=== PATIENT | female | born 1995 | race Caucasian/White ===

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

== ENCOUNTER 2017-08-30 01:11 | Emergency (ER) | payer OTHER ==
[2017-08-30] MEDS ORDERED: Ondansetron 4 MG/2 ML SDV IVPUSH ONE (01:27)
[2017-08-30] MEDS ORDERED: Ketorolac 30 MG/ML SDV IVPUSH ONE (01:27)
[2017-08-30] MEDS ORDERED: Sodium Chloride 0.9% 1,000 ML IV SCH (01:30)
[2017-08-30 02:12] LABS: CHLORIDE,CL 108 mmol/L (98-107); SODIUM,NA 138 mmol/L (136-145)
[2017-08-30 03:00] VITALS: BP 118/66
--- NOTE | 2017-08-30 03:04 | EDM.PDOC ---
ED HPI GENERAL MEDICAL PROBLEM - General Chief Complaint: Abdominal Pain Stated Complaint: STOMACH PAINS Time Seen by Provider: 08/30/17 02:59 - History of Present Illness INITIAL COMMENTS - FREE TEXT/NARRATIVE: HISTORY AND PHYSICAL: History of present illness: Patient's 22-year-old female presents with a concern of intermittent abdominal pain for greater than one month she has no associated vomiting diarrhea she denies fever chills this is nonlocalized been no trauma she denies vaginal discharge or irregular bleeding or any urinary symptoms Review of systems: As per history of present illness and below otherwise all systems reviewed and negative. Past medical history: As per history of present illness and as reviewed below otherwise noncontributory. Surgical history: As per history of present illness and as reviewed below otherwise noncontributory. Social history: No reported history of drug or alcohol abuse. Family history: As per history of present illness and as reviewed below otherwise noncontributory. Physical exam: HEENT: Atraumatic, normocephalic, pupils reactive, negative for conjunctival pallor or scleral icterus, mucous membranes moist, throat clear, neck supple, nontender, trachea midline. Lungs: Clear to auscultation, breath sounds equal bilaterally, chest nontender. Heart: S1S2, regular, negative for clicks, rubs, or JVD. Abdomen: Soft, nondistended, nontender. Negative for masses or hepatosplenomegaly. Negative for costovertebral tenderness. Pelvis: Stable nontender. Genitourinary: Deferred. Rectal: Deferred. Extremities: Atraumatic, negative for cords or calf pain. Neurovascular unremarkable. Neuro: Awake, alert, oriented. Cranial nerves II through XII unremarkable. Cerebellum unremarkable. Motor and sensory unremarkable throughout. Exam nonfocal. Diagnostics: CBC CMP UA hCG CT abdomen and pelvis Therapeutics: Saline 1 L bolus Impression: #1 chronic intermittent abdominal pain etiology to be determined Definitive disposition and diagnosis as appropriate pending reevaluation and review of above. Abdomen left lumbar Pain Score (Numeric/FACES): 1 - Related Data Allergies Allergy/AdvReac Type Severity Reaction Status Date / Time No Known Allergies Allergy Verified 08/30/17 01:21 Home Meds: Home Meds Control 08/30/17 [History] Past Medical History - Past Health History Medical/Surgical History: Denies Medical/Surgical History HEENT History: Reports: None Cardiovascular History: Reports: None Other Cardiovascular History: chest pains Respiratory History: Reports: None Gastrointestinal History: Reports: GERD Genitourinary History: Reports: None VET[employer]IN[employer]CTOR History: Reports: None Psychiatric History: Reports: None Hematologic History: Reports: None Dermatologic History: Reports: None - Infectious Disease History Infectious Disease History: Reports: None - Past Surgical History Other HEENT Surgeries/Procedures: dental surgery Cardiovascular Surgical History: Reports: None GI Surgical History: Reports: None Female Surgical History: Reports: None Social & Family History - Family History Family Medical History: Noncontributory HEENT: Reports: None Cardiac: Reports: None - Tobacco Use Smoking Status *Q: Never Smoker - Caffeine Use Caffeine Use: Reports: None - Recreational Drug Use Recreational Drug Use: No ED ROS GENERAL - Review of Systems Review Of Systems: ROS reveals no pertinent complaints other than HPI. ED EXAM, GENERAL - Physical Exam Exam: See Below (See dictation) Course - Vital Signs Last Recorded V/S: Last Vital Signs Temp 36.8 C 08/30/17 02:59 Pulse 92 08/30/17 02:59 Resp 18 08/30/17 02:59 BP 118/66 08/30/17 02:59 Pulse Ox 97 08/30/17 02:59 - Orders/Labs/Meds Orders: Active Orders 24 hr Category Date Time Status Abdomen Pelvis wo Cont [CT] Stat Exams 08/30/17 01:28 Taken HCG QUALITATIVE,URINE [URCHEM] Stat Lab 08/30/17 02:11 Ordered UA W/MICROSCOPIC [URIN] Stat Lab 08/30/17 02:11 Ordered Sodium Chloride 0.9% [Normal Saline] 1,000 ml Med 08/30/17 01:30 Active IV ASDIRECTED Medication Orders Sodium Chloride (Normal Saline) 1,000 mls @ 999 mls/hr IV ASDIRECTED MARIANA Last Admin: 08/30/17 01:41 Dose: 999 mls/hr Labs: Laboratory Tests 08/30/17 08/30/17 08/30/17 Range/Units 01:40 01:40 02:11 WBC 10.37 (4.0-11.0) K/uL RBC 4.40 (4.30-5.90) M/uL Hgb 13.8 (12.0-16.0) g/dL Hct 39.2 (36.0-46.0) % MCV 89.1 (80.0-98.0) fL MCH 31.4 (27.0-32.0) pg MCHC 35.2 (31.0-37.0) g/dL RDW Std Deviation 37.8 (28.0-62.0) fl RDW Coeff of Pema 12 (11.0-15.0) % Plt Count 284 (150-400) K/uL MPV 9.90 (7.40-12.00) fL Neut % (Auto) 69.2 (48.0-80.0) % Lymph % (Auto) 24.5 (16.0-40.0) % [place] % (Auto) 5.6 (0.0-15.0) % Eos % (Auto) 0.6 (0.0-7.0) % Baso % (Auto) 0.1 (0.0-1.5) % Neut # (Auto) 7.2 H (1.4-5.7) K/uL Lymph # (Auto) 2.5 H (0.6-2.4) K/uL [place] # (Auto) 0.6 (0.0-0.8) K/uL Eos # (Auto) 0.1 (0.0-0.7) K/uL Baso # (Auto) 0.0 (0.0-0.1) K/uL Sodium 138 (136-145) mmol/L Potassium 3.6 (3.5-5.1) mmol/L Chloride 108 H (98-107) mmol/L Carbon Dioxide 24.1 (21.0-32.0) mmol/L BUN 12 (7.0-18.0) mg/dL Creatinine 0.8 (0.6-1.0) mg/dL Est Cr Clr Drug Dosing 96.86 mL/min Estimated GFR (MDRD) > 60.0 ml/min Glucose 112 H (74-106) mg/dL Calcium 8.6 (8.5-10.1) mg/dL Total Bilirubin 0.5 (0.2-1.0) mg/dL AST 18 (15-37) IU/L ALT 17 (14-63) IU/L Alkaline Phosphatase 26 L (46-116) U/L Total Protein 6.6 (6.4-8.2) g/dL Albumin 3.2 L (3.4-5.0) g/dL Globulin 3.4 (2.0-3.5) g/dL Albumin/Globulin Ratio 0.9 L (1.3-2.8) Urine Color YELLOW Urine Appearance CLEAR Urine pH 6.5 (5.0-8.0) Ur Specific [place] <= 1.005 (1.001-1.035) Urine Protein NEGATIVE (NEGATIVE) mg/dL Urine Glucose (UA) NEGATIVE (NEGATIVE) mg/dL Urine Ketones NEGATIVE (NEGATIVE) mg/dL Urine Occult Blood NEGATIVE (NEGATIVE) Urine Nitrite NEGATIVE (NEGATIVE) Urine Bilirubin NEGATIVE (NEGATIVE) Urine Urobilinogen 0.2 (<2.0) EU/dL Ur Leukocyte Esterase NEGATIVE (NEGATIVE) Urine RBC 0-1 (0-2/HPF) Urine WBC 0-1 (0-5/HPF) Ur Epithelial Cells RARE (NONE-FEW) Urine Bacteria RARE (NEGATIVE) Urine HCG, Qual (NEGATIVE) 08/30/17 Range/Units 02:11 WBC (4.0-11.0) K/uL RBC (4.30-5.90) M/uL Hgb (12.0-16.0) g/dL Hct (36.0-46.0) % MCV (80.0-98.0) fL MCH (27.0-32.0) pg MCHC (31.0-37.0) g/dL RDW Std Deviation (28.0-62.0) fl RDW Coeff of Pema (11.0-15.0) % Plt Count (150-400) K/uL MPV (7.40-12.00) fL Neut % (Auto) (48.0-80.0) % Lymph % (Auto) (16.0-40.0) % [place] % (Auto) (0.0-15.0) % Eos % (Auto) (0.0-7.0) % Baso % (Auto) (0.0-1.5) % Neut # (Auto) (1.4-5.7) K/uL Lymph # (Auto) (0.6-2.4) K/uL [place] # (Auto) (0.0-0.8) K/uL Eos # (Auto) (0.0-0.7) K/uL Baso # (Auto) (0.0-0.1) K/uL Sodium (136-145) mmol/L Potassium (3.5-5.1) mmol/L Chloride (98-107) mmol/L Carbon Dioxide (21.0-32.0) mmol/L BUN (7.0-18.0) mg/dL Creatinine (0.6-1.0) mg/dL Est Cr Clr Drug Dosing mL/min Estimated GFR (MDRD) ml/min Glucose (74-106) mg/dL Calcium (8.5-10.1) mg/dL Total Bilirubin (0.2-1.0) mg/dL AST (15-37) IU/L ALT (14-63) IU/L Alkaline Phosphatase (46-116) U/L Total Protein (6.4-8.2) g/dL Albumin (3.4-5.0) g/dL Globulin (2.0-3.5) g/dL Albumin/Globulin Ratio (1.3-2.8) Urine Color Urine Appearance Urine pH (5.0-8.0) Ur Specific [place] (1.001-1.035) Urine Protein (NEGATIVE) mg/dL Urine Glucose (UA) (NEGATIVE) mg/dL Urine Ketones (NEGATIVE) mg/dL Urine Occult Blood (NEGATIVE) Urine Nitrite (NEGATIVE) Urine Bilirubin (NEGATIVE) Urine Urobilinogen (<2.0) EU/dL Ur Leukocyte Esterase (NEGATIVE) Urine RBC (0-2/HPF) Urine WBC (0-5/HPF) Ur Epithelial Cells (NONE-FEW) Urine Bacteria (NEGATIVE) Urine HCG, Qual NEGATIVE (NEGATIVE) Meds: Medications Generic Name Dose Route Start Last Admin Trade Name Freq PRN Reason Stop Dose Admin Sodium Chloride 1,000 mls @ 999 mls/hr 08/30/17 01:30 08/30/17 01:41 Normal Saline IV 999 mls/hr ASDIRECTED MARIANA Administration Discontinued Medications Generic Name Dose Route Start Last Admin Trade Name Freq PRN Reason Stop Dose Admin Ketorolac Tromethamine 30 mg 08/30/17 01:27 08/30/17 01:41 Toradol IVPUSH 08/30/17 01:28 30 mg ONETIME ONE Administration Ondansetron HCl 4 mg 08/30/17 01:27 08/30/17 01:41 Zofran IVPUSH 08/30/17 01:28 4 mg ONETIME ONE Administration Departure - Departure Time of Disposition: 03:03 Disposition: Home, Self-Care 01 Condition: Good Clinical Impression: Abdominal pain - Discharge Information Referrals: PCP,None [Primary Care Provider] - Additional Instructions: The following information is given to patients seen in the emergency department who are being discharged to home. This information is to outline your options for follow-up care. We provide all patients seen in our emergency department with a follow-up referral. The need for follow-up, as well as the timing and circumstances, are variable depending upon the specifics of your emergency department visit. If you don't have a primary care physician on staff, we will provide you with a referral. We always advise you to contact your personal physician following an emergency department visit to inform them of the circumstance of the visit and for follow-up with them and/or the need for any referrals to a consulting specialist. The emergency department will also refer you to a specialist when appropriate. This referral assures that you have the opportunity for followup care with a specialist. All of these measure are taken in an effort to provide you with optimal care, which includes your followup. Under all circumstances we always encourage you to contact your private physician who remains a resource for coordinating your care. When calling for followup care, please make the office aware that this follow-up is from your recent emergency room visit. If for any reason you are refused follow-up, please contact the [facility] emergency department at and asked to speak to the emergency department charge nurse. [facility] Specialty Care - General Surgery Professional Building [address] [place] [address], [address] [place] [address] Follow-up primary medical doctor call to schedule appointment with general surgery above return as needed as discussed - My Orders Last 24 Hours: My Active Orders 08/30/17 01:28 Abdomen Pelvis wo Cont [CT] Stat 08/30/17 01:30 Sodium Chloride 0.9% [Normal Saline] 1,000 ml IV ASDIRECTED 08/30/17 02:11 HCG QUALITATIVE,URINE [URCHEM] Stat UA W/MICROSCOPIC [URIN] Stat - Assessment/Plan Last 24 Hours: My Active Orders 08/30/17 01:28 Abdomen Pelvis wo Cont [CT] Stat 08/30/17 01:30 Sodium Chloride 0.9% [Normal Saline] 1,000 ml IV ASDIRECTED 08/30/17 02:11 HCG QUALITATIVE,URINE [URCHEM] Stat UA W/MICROSCOPIC [URIN] Stat
--- NOTE | 2017-08-30 16:25 | CT ---
EXAM DATE: 08/30/17 PATIENT'S AGE: 22 Patient: MICHELLE CHEN Facility: [place], [place] Site . Site : 1997 Study: CT Abdomen/Pelvis W/O [id number]/[id number] 2:43:04 AM Ordering Physician: Doctor Coronado Final Report: INDICATION: Constipation for 3 weeks TECHNIQUE: CT Abdomen and pelvis without i.v. contrast. Coronal and sagittal reformats were obtained. CONTRAST: None COMPARISON: None FINDINGS: Lower chest: Unremarkable. Liver: Unremarkable. Spleen: Unremarkable. Pancreas: Unremarkable. Gallbladder: Unremarkable. Kidney: Trace bilateral hydroureter and mild bilateral renal pelviectasis seen. Adrenal: Unremarkable. Bowel: [id number] amount of stool is present throughout the colon which may be due to chronic constipation. The appendix is normal in appearance and size. It is best seen on coronal image 29. Vascular: Unremarkable. Lymph: Unremarkable. Peritoneum: Unremarkable. No pneumoperitoneum is seen. No significant ascites is noted. Pelvis: Mild bladder distention is noted. Soft tissue: Unremarkable. Bone: Unremarkable for age. IMPRESSION: 1. Trace bilateral hydroureter and mild bilateral renal pelviectasis seen. This may be due to bladder distention but clinical correlation is recommended to exclude urinary tract infection, vesicoureteral reflux, or previous history of obstruction. Dictated by Star Grace MD @ 08/30/2017 2:48:34 AM Please note that all CT scans at this facility use dose modulation, iterative reconstruction, and/or weight-based dosing when appropriate to reduce radiation dose to as low as reasonably achievable. Dictated by: Star Grace MD @ 08/30/2017 02:48:40 (Electronic Signature) Report Signed by Proxy. [facility] C[facility]ERSamantha
== END 2017-08-30 03:10 | disposition home or self-care (01) ==
LOC: MW.ED 01:11
DX: R10.9 Unspecified abdominal pain (principal)
CPT/HCPCS: 36415; 74176; 80053; 81001; 81025; 85025; 96361; 96374; 96375; 99284; J1885; J2405; J7040; 99283

== ENCOUNTER 2017-09-15 11:45 | Emergency (ER) | payer OTHER ==
--- NOTE | 2017-09-15 12:27 | EDM.PDOC ---
ED HPI GENERAL MEDICAL PROBLEM - General Chief Complaint: Abdominal Pain Stated Complaint: ABD PAIN Time Seen by Provider: 09/15/17 12:16 - History of Present Illness INITIAL COMMENTS - FREE TEXT/NARRATIVE: HISTORY AND PHYSICAL: History of present illness: Patient 22-year-old female with history of chronic abdominal pain who was seen by myself in the past and had an extensive workup in the emergency department then including CT scan of her abdomen she was referred to general surgery and did not secure or follow-up she has seen OB gynecology since then suggest that it is possible she has endometriosis but at her age would be nothing to do at this point and refer to gastroenterology for which she is appointment next week she is here today for routine evaluation and requesting lab evaluation for her persistent symptoms. Review of systems: As per history of present illness and below otherwise all systems reviewed and negative. Past medical history: As per history of present illness and as reviewed below otherwise noncontributory. Surgical history: As per history of present illness and as reviewed below otherwise noncontributory. Social history: No reported history of drug or alcohol abuse. Family history: As per history of present illness and as reviewed below otherwise noncontributory. Physical exam: HEENT: Atraumatic, normocephalic, pupils reactive, negative for conjunctival pallor or scleral icterus, mucous membranes moist, throat clear, neck supple, nontender, trachea midline. Lungs: Clear to auscultation, breath sounds equal bilaterally, chest nontender. Heart: S1S2, regular, negative for clicks, rubs, or JVD. Abdomen: Soft, nondistended, no localized tendernessNegative for masses or hepatosplenomegaly. Negative for costovertebral tenderness. Pelvis: Stable nontender. Genitourinary: Deferred. Rectal: Deferred. Extremities: Atraumatic, negative for cords or calf pain. Neurovascular unremarkable. Neuro: Awake, alert, oriented. Cranial nerves II through XII unremarkable. Cerebellum unremarkable. Motor and sensory unremarkable throughout. Exam nonfocal. Diagnostics: CBC CMP UA UCG KUB Therapeutics: None Impression: #1 chronic intermittent abdominal pain etiology to be determined Definitive disposition and diagnosis as appropriate pending reevaluation and review of above. upper abdomen, epigastric Pain Score (Numeric/FACES): 7 - Related Data Allergies Allergy/AdvReac Type Severity Reaction Status Date / Time caffeine Allergy Other Verified 09/15/17 12:08 Home Meds: Home Meds Control 08/30/17 [History] Past Medical History - Past Health History Medical/Surgical History: Denies Medical/Surgical History HEENT History: Reports: None Cardiovascular History: Reports: None Other Cardiovascular History: chest pains Respiratory History: Reports: None Gastrointestinal History: Reports: GERD Genitourinary History: Reports: None REAMER HAND History: Reports: None Psychiatric History: Reports: None Hematologic History: Reports: None Dermatologic History: Reports: None - Infectious Disease History Infectious Disease History: Reports: None - Past Surgical History Other HEENT Surgeries/Procedures: dental surgery Cardiovascular Surgical History: Reports: None GI Surgical History: Reports: None Female Surgical History: Reports: None Social & Family History - Family History Family Medical History: Noncontributory HEENT: Reports: None Cardiac: Reports: None - Tobacco Use Smoking Status *Q: Never Smoker Second Hand Smoke Exposure: Yes - Caffeine Use Caffeine Use: Reports: None - Recreational Drug Use Recreational Drug Use: No ED ROS GENERAL - Review of Systems Review Of Systems: ROS reveals no pertinent complaints other than HPI. ED EXAM, GENERAL - Physical Exam Exam: See Below (See dictation) Course - Vital Signs Last Recorded V/S: Last Vital Signs Temp 37.4 C 09/15/17 12:03 Pulse 141 H 09/15/17 12:03 Resp 18 09/15/17 12:03 BP 161/78 H 09/15/17 12:03 Pulse Ox 20 L 09/15/17 12:03 - Orders/Labs/Meds Orders: Active Orders 24 hr Category Date Time Status DRUG SCREEN, URINE [URCHEM] Stat Lab 09/15/17 12:25 Ordered UA W/MICROSCOPIC [URIN] Stat Lab 09/15/17 12:25 Ordered Labs: Laboratory Tests 09/15/17 09/15/17 09/15/17 Range/Units 12:25 12:25 12:39 WBC 9.55 (4.0-11.0) K/uL RBC 4.71 (4.30-5.90) M/uL Hgb 14.9 (12.0-16.0) g/dL Hct 41.6 (36.0-46.0) % MCV 88.3 (80.0-98.0) fL MCH 31.6 (27.0-32.0) pg MCHC 35.8 (31.0-37.0) g/dL RDW Std Deviation 40.2 (28.0-62.0) fl RDW Coeff of Pema 13 (11.0-15.0) % Plt Count 329 (150-400) K/uL MPV 9.50 (7.40-12.00) fL Neut % (Auto) 82.5 H (48.0-80.0) % Lymph % (Auto) 12.5 L (16.0-40.0) % [place] % (Auto) 4.7 (0.0-15.0) % Eos % (Auto) 0.1 (0.0-7.0) % Baso % (Auto) 0.2 (0.0-1.5) % Neut # (Auto) 7.9 H (1.4-5.7) K/uL Lymph # (Auto) 1.2 (0.6-2.4) K/uL [place] # (Auto) 0.5 (0.0-0.8) K/uL Eos # (Auto) 0.0 (0.0-0.7) K/uL Baso # (Auto) 0.0 (0.0-0.1) K/uL Nucleated RBC % 0.0 /100WBC Nucleated RBCs # 0 K/uL Sodium (136-145) mmol/L Potassium (3.5-5.1) mmol/L Chloride (98-107) mmol/L Carbon Dioxide (21.0-32.0) mmol/L BUN (7.0-18.0) mg/dL Creatinine (0.6-1.0) mg/dL Est Cr Clr Drug Dosing mL/min Estimated GFR (MDRD) ml/min Glucose (74-106) mg/dL Calcium (8.5-10.1) mg/dL Total Bilirubin (0.2-1.0) mg/dL AST (15-37) IU/L ALT (14-63) IU/L Alkaline Phosphatase (46-116) U/L Total Protein (6.4-8.2) g/dL Albumin (3.4-5.0) g/dL Globulin (2.0-3.5) g/dL Albumin/Globulin Ratio (1.3-2.8) Lipase (73-393) U/L HCG, Qual (NEG) Urine Color YELLOW Urine Appearance CLEAR Urine pH 5.5 (5.0-8.0) Ur Specific [place] 1.015 (1.001-1.035) Urine Protein NEGATIVE (NEGATIVE) mg/dL Urine Glucose (UA) NEGATIVE (NEGATIVE) mg/dL Urine Ketones NEGATIVE (NEGATIVE) mg/dL Urine Occult Blood TRACE-INTACT (NEGATIVE) Urine Nitrite NEGATIVE (NEGATIVE) Urine Bilirubin NEGATIVE (NEGATIVE) Urine Urobilinogen 0.2 (<2.0) EU/dL Ur Leukocyte Esterase NEGATIVE (NEGATIVE) Urine RBC 0-1 (0-2/HPF) Urine WBC 0-1 (0-5/HPF) Ur Epithelial Cells OCCASIONAL (NONE-FEW) Urine Bacteria RARE (NEGATIVE) Urine Opiates Screen NEGATIVE (NEGATIVE) Ur Oxycodone Screen NEGATIVE (NEGATIVE) Urine Methadone Screen NEGATIVE (NEGATIVE) Ur Barbiturates Screen NEGATIVE (NEGATIVE) Ur Phencyclidine Scrn NEGATIVE (NEGATIVE) Ur Amphetamine Screen NEGATIVE (NEGATIVE) U Methamphetamines Scrn NEGATIVE (NEGATIVE) U Benzodiazepines Scrn NEGATIVE (NEGATIVE) U Cocaine Metab Screen NEGATIVE (NEGATIVE) U Marijuana (THC) Screen NEGATIVE (NEGATIVE) 09/15/17 09/15/17 Range/Units 12:39 12:39 WBC (4.0-11.0) K/uL RBC (4.30-5.90) M/uL Hgb (12.0-16.0) g/dL Hct (36.0-46.0) % MCV (80.0-98.0) fL MCH (27.0-32.0) pg MCHC (31.0-37.0) g/dL RDW Std Deviation (28.0-62.0) fl RDW Coeff of Pema (11.0-15.0) % Plt Count (150-400) K/uL MPV (7.40-12.00) fL Neut % (Auto) (48.0-80.0) % Lymph % (Auto) (16.0-40.0) % [place] % (Auto) (0.0-15.0) % Eos % (Auto) (0.0-7.0) % Baso % (Auto) (0.0-1.5) % Neut # (Auto) (1.4-5.7) K/uL Lymph # (Auto) (0.6-2.4) K/uL [place] # (Auto) (0.0-0.8) K/uL Eos # (Auto) (0.0-0.7) K/uL Baso # (Auto) (0.0-0.1) K/uL Nucleated RBC % /100WBC Nucleated RBCs # K/uL Sodium 139 (136-145) mmol/L Potassium 3.3 L (3.5-5.1) mmol/L Chloride 105 (98-107) mmol/L Carbon Dioxide 24.3 (21.0-32.0) mmol/L BUN 9 (7.0-18.0) mg/dL Creatinine 0.9 (0.6-1.0) mg/dL Est Cr Clr Drug Dosing 89.72 mL/min Estimated GFR (MDRD) > 60.0 ml/min Glucose 120 H (74-106) mg/dL Calcium 8.5 (8.5-10.1) mg/dL Total Bilirubin 0.9 (0.2-1.0) mg/dL AST 14 L (15-37) IU/L ALT 16 (14-63) IU/L Alkaline Phosphatase 30 L (46-116) U/L Total Protein 7.2 (6.4-8.2) g/dL Albumin 3.5 (3.4-5.0) g/dL Globulin 3.7 H (2.0-3.5) g/dL Albumin/Globulin Ratio 1.0 L (1.3-2.8) Lipase 162 (73-393) U/L HCG, Qual NEGATIVE (NEG) Urine Color Urine Appearance Urine pH (5.0-8.0) Ur Specific [place] (1.001-1.035) Urine Protein (NEGATIVE) mg/dL Urine Glucose (UA) (NEGATIVE) mg/dL Urine Ketones (NEGATIVE) mg/dL Urine Occult Blood (NEGATIVE) Urine Nitrite (NEGATIVE) Urine Bilirubin (NEGATIVE) Urine Urobilinogen (<2.0) EU/dL Ur Leukocyte Esterase (NEGATIVE) Urine RBC (0-2/HPF) Urine WBC (0-5/HPF) Ur Epithelial Cells (NONE-FEW) Urine Bacteria (NEGATIVE) Urine Opiates Screen (NEGATIVE) Ur Oxycodone Screen (NEGATIVE) Urine Methadone Screen (NEGATIVE) Ur Barbiturates Screen (NEGATIVE) Ur Phencyclidine Scrn (NEGATIVE) Ur Amphetamine Screen (NEGATIVE) U Methamphetamines Scrn (NEGATIVE) U Benzodiazepines Scrn (NEGATIVE) U Cocaine Metab Screen (NEGATIVE) U Marijuana (THC) Screen (NEGATIVE) Departure - Departure Time of Disposition: 12:26 Disposition: Home, Self-Care 01 Condition: Good Clinical Impression: Chronic abdominal pain - Discharge Information Referrals: PCP,None [Primary Care Provider] - Forms: ED Department Discharge Additional Instructions: The following information is given to patients seen in the emergency department who are being discharged to home. This information is to outline your options for follow-up care. We provide all patients seen in our emergency department with a follow-up referral. The need for follow-up, as well as the timing and circumstances, are variable depending upon the specifics of your emergency department visit. If you don't have a primary care physician on staff, we will provide you with a referral. We always advise you to contact your personal physician following an emergency department visit to inform them of the circumstance of the visit and for follow-up with them and/or the need for any referrals to a consulting specialist. The emergency department will also refer you to a specialist when appropriate. This referral assures that you have the opportunity for followup care with a specialist. All of these measure are taken in an effort to provide you with optimal care, which includes your followup. Under all circumstances we always encourage you to contact your private physician who remains a resource for coordinating your care. When calling for followup care, please make the office aware that this follow-up is from your recent emergency room visit. If for any reason you are refused follow-up, please contact the [facility] emergency department at and asked to speak to the emergency department charge nurse. [facility] Specialty Care - General Surgery Professional Building [address] [place] [address], [address] [place] [address] Keep scheduled appointment gastroenterology follow-up Gen. surgery above as discussed prior call to schedule appointment return as needed as discussed - My Orders Last 24 Hours: My Active Orders 09/15/17 12:25 DRUG SCREEN, URINE [URCHEM] Stat UA W/MICROSCOPIC [URIN] Stat - Assessment/Plan Last 24 Hours: My Active Orders 09/15/17 12:25 DRUG SCREEN, URINE [URCHEM] Stat UA W/MICROSCOPIC [URIN] Stat
[2017-09-15 13:37] LABS: CHLORIDE,CL 105 mmol/L (98-107); SODIUM,NA 139 mmol/L (136-145)
--- NOTE | 2017-09-15 14:18 | CR ---
Supine abdomen Clinical history: Abdominal pain Comparison: CT scan August 30, 2017. Findings: There is a nonspecific bowel gas pattern. There are no calculi identified in the expected d istribution of either kidney or ureter. No significant specific findings. Impression: Nonspecific abdominal findings
[2017-09-15 14:39] VITALS: BP 116/65
== END 2017-09-15 14:39 | disposition home or self-care (01) ==
LOC: MW.ED 11:45
DX: R10.9 Unspecified abdominal pain (principal); G89.29 Other chronic pain; Z91.018 Allergy to other foods; Z77.22 Contact with and (suspected) exposure to environmental tobacco smoke (acute) (chronic)
CPT/HCPCS: 36415; 74018; 74018-26; 80053; 80305; 81001; 83690; 84703; 85025; 99282; 99284

== ENCOUNTER 2019-07-28 20:14 | Emergency (ER) | payer OTHER ==
[2019-07-28] MEDS ORDERED: Sodium Chloride 0.9% 10 ML Syringe FLUSH PRN (20:44)
[2019-07-28] MEDS ORDERED: Sodium Chloride 0.9% 2.5 ML Syringe FLUSH PRN (20:44)
[2019-07-28] MEDS ORDERED: Sodium Chloride 0.9% 1,000 ML IV ONE (20:44)
--- NOTE | 2019-07-28 21:11 | EDM.PDOC ---
ED HPI GENERAL MEDICAL PROBLEM - General Chief Complaint: Abdominal Pain Stated Complaint: STOMACH AND CHEST PAINS Time Seen by Provider: 07/28/19 20:43 Source of Information: Reports: Patient History Limitations: Reports: No Limitations - History of Present Illness INITIAL COMMENTS - FREE TEXT/NARRATIVE: HISTORY AND PHYSICAL: History of present illness: Patient is a 24-year-old presents to the ED with multiple complaints. Patient states that 2 days ago she went to the chiropractor because she gets extremity tingling and weakness. She states he told her she had a hiatal hernia and pressed on her stomach to "put it back in place." She states ever since then she has had left upper abdominal pain. She also has a pressure in her chest that is worse when she lies down, feels like her heart is racing/pounding and feels like she can't take a deep breath. She reports having right upper abdominal pain as well but this has been going on for a while along with having bright yellow loose stools. She states she has a follow up with Izabela Hernández NP in [place] on Wednesday to discuss all of this. She states she came to the ED today because she was walking and felt really tired and needed to sit down. She states she sometimes feels like she might pass out but denies any syncopal episodes. Patient has history of cholecystectomy. Denies significant past medical history. States she smokes marijuana 2-3 times per week. Denies tobacco , alcohol or other drug use. Review of systems: As per history of present illness and below otherwise all systems reviewed and negative. Past medical history: As per history of present illness and as reviewed below otherwise noncontributory. Surgical history: As per history of present illness and as reviewed below otherwise noncontributory. Social history: No reported history of drug or alcohol abuse. Family history: As per history of present illness and as reviewed below otherwise noncontributory. Physical exam: General: Patient sitting comfortably in no acute distress and nontoxic appearing HEENT: Atraumatic, normocephalic, pupils reactive, negative for conjunctival pallor or scleral icterus, mucous membranes moist, throat clear, neck supple, nontender, trachea midline. No meningeal signs. Lungs: Clear to auscultation, breath sounds equal bilaterally, chest nontender. Heart: S1S2, regular, negative for clicks, rubs, or overt murmur. Abdomen: Soft, nondistended, nontender. Negative for masses or hepatosplenomegaly. Negative for costovertebral tenderness. No rigidity, rebound , guarding. Pelvis: Stable nontender. Genitourinary: Deferred. Rectal: Deferred. Extremities: Atraumatic, negative for cords or calf pain. Neurovascular unremarkable. Neuro: Awake, alert, oriented. Cranial nerves II through XII unremarkable. Cerebellum unremarkable. Motor and sensory unremarkable throughout. Exam nonfocal. Notes: Diagnostics: CBC, CMP, troponin, EKG, CXR, UA, urine hcg Therapeutics: 1L NS IV Prescriptions: none Impression: abdominal pain Plan: Follow up with primary care provider at your scheduled appointment on Wednesday Return to ED as needed as discussed Definitive disposition and diagnosis as appropriate pending reevaluation and review of above. Chest/Abdomen Pain Score (Numeric/FACES): 7 - Related Data Allergies Allergy/AdvReac Type Severity Reaction Status Date / Time caffeine Allergy heart races Verified 02/28/18 02:59 hydrocodone Allergy Tachycardia Verified 03/24/18 23:39 contrast Allergy Hives Uncoded 07/28/19 21:10 Home Meds: Home Meds . [No Known Home Meds] 07/28/19 [History] Past Medical History - Past Health History Medical/Surgical History: Denies Medical/Surgical History HEENT History: Reports: None Cardiovascular History: Reports: None Other Cardiovascular History: chest pains Respiratory History: Reports: None Gastrointestinal History: Reports: GERD, Irritable Bowel Syndrome Other Gastrointestinal History: rt upper quad pain Genitourinary History: Reports: None [employer] History: Reports: None Musculoskeletal History: Reports: None Neurological History: Reports: None Psychiatric History: Reports: None Endocrine/Metabolic History: Reports: None, Other (See Below) Hematologic History: Reports: None Immunologic History: Reports: None Oncologic (Cancer) History: Reports: None Dermatologic History: Reports: None - Infectious Disease History Infectious Disease History: Reports: None - Past Surgical History Respiratory Surgical History: Reports: None Endocrine Surgical History: Reports: None Neurological Surgical History: Reports: None Musculoskeletal Surgical History: Reports: None Oncologic Surgical History: Reports: None Dermatological Surgical History: Reports: None Social & Family History - Family History Family Medical History: Noncontributory HEENT: Reports: None Cardiac: Reports: None - Caffeine Use Caffeine Use: Reports: None ED ROS GENERAL - Review of Systems Review Of Systems: Comprehensive ROS is negative, except as noted in HPI. ED EXAM, GI/ABD - Physical Exam Exam: See Below (see dictation) Course - Vital Signs Last Recorded V/S: Last Vital Signs Temp 96.7 F L 07/28/19 20:42 Pulse 115 H 07/28/19 20:42 Resp 17 07/28/19 20:42 BP 88/69 L 07/28/19 20:42 Pulse Ox 100 07/28/19 20:42 - Orders/Labs/Meds Orders: Active Orders 24 hr Category Date Time Status Sodium Chloride 0.9% [Saline Flush] Med 07/28/19 20:44 Active 10 ml FLUSH ASDIRECTED PRN Sodium Chloride 0.9% [Saline Flush] Med 07/28/19 20:44 Active 2.5 ml FLUSH ASDIRECTED PRN Saline Lock Insert [OM.PC] Stat Oth 07/28/19 20:43 Ordered Medication Orders Sodium Chloride (Saline Flush) 10 ml FLUSH ASDIRECTED PRN PRN Reason: Keep Vein Open Sodium Chloride (Saline Flush) 2.5 ml FLUSH ASDIRECTED PRN PRN Reason: Keep Vein Open Labs: Laboratory Tests 07/28/19 07/28/19 07/28/19 Range/Units 21:00 21:00 21:00 WBC 9.52 (4.0-11.0) K/uL RBC 4.94 (4.30-5.90) M/uL Hgb 15.4 (12.0-16.0) g/dL Hct 43.7 (36.0-46.0) % MCV 88.5 (80.0-98.0) fL MCH 31.2 (27.0-32.0) pg MCHC 35.2 (31.0-37.0) g/dL RDW Std Deviation 40.8 (28.0-62.0) fl RDW Coeff of Pema 13 (11.0-15.0) % Plt Count 312 (150-400) K/uL MPV 9.40 (7.40-12.00) fL Neut % (Auto) 74.3 (48.0-80.0) % Lymph % (Auto) 19.6 (16.0-40.0) % [place] % (Auto) 5.7 (0.0-15.0) % Eos % (Auto) 0.2 (0.0-7.0) % Baso % (Auto) 0.2 (0.0-1.5) % Neut # (Auto) 7.1 H (1.4-5.7) K/uL Lymph # (Auto) 1.9 (0.6-2.4) K/uL [place] # (Auto) 0.5 (0.0-0.8) K/uL Eos # (Auto) 0.0 (0.0-0.7) K/uL Baso # (Auto) 0.0 (0.0-0.1) K/uL Nucleated RBC % 0.0 /100WBC Nucleated RBCs # 0 K/uL Sodium 141 (136-145) mmol/L Potassium 3.7 (3.5-5.1) mmol/L Chloride 104 (98-107) mmol/L Carbon Dioxide 27.9 (21.0-32.0) mmol/L BUN 9 (7.0-18.0) mg/dL Creatinine 0.7 (0.6-1.0) mg/dL Est Cr Clr Drug Dosing TNP Estimated GFR (MDRD) > 60.0 ml/min Glucose 109 H (74-106) mg/dL Calcium 8.9 (8.5-10.1) mg/dL Total Bilirubin 1.1 H (0.2-1.0) mg/dL AST 18 (15-37) IU/L ALT 27 (14-63) IU/L Alkaline Phosphatase 52 (46-116) U/L Troponin I < 0.050 (0.000-0.056) ng/mL Total Protein 7.8 (6.4-8.2) g/dL Albumin 4.1 (3.4-5.0) g/dL Globulin 3.7 (2.6-4.0) g/dL Albumin/Globulin Ratio 1.1 (0.9-1.6) Lipase 102 (73-393) U/L Urine Color YELLOW Urine Appearance CLEAR Urine pH 6.5 (5.0-8.0) Ur Specific [place] 1.010 (1.001-1.035) Urine Protein NEGATIVE (NEGATIVE) mg/dL Urine Glucose (UA) NEGATIVE (NEGATIVE) mg/dL Urine Ketones NEGATIVE (NEGATIVE) mg/dL Urine Occult Blood NEGATIVE (NEGATIVE) Urine Nitrite NEGATIVE (NEGATIVE) Urine Bilirubin NEGATIVE (NEGATIVE) Urine Urobilinogen 0.2 (<2.0) EU/dL Ur Leukocyte Esterase NEGATIVE (NEGATIVE) Urine HCG, Qual (NEGATIVE) 07/28/19 Range/Units 21:00 WBC (4.0-11.0) K/uL RBC (4.30-5.90) M/uL Hgb (12.0-16.0) g/dL Hct (36.0-46.0) % MCV (80.0-98.0) fL MCH (27.0-32.0) pg MCHC (31.0-37.0) g/dL RDW Std Deviation (28.0-62.0) fl RDW Coeff of Pema (11.0-15.0) % Plt Count (150-400) K/uL MPV (7.40-12.00) fL Neut % (Auto) (48.0-80.0) % Lymph % (Auto) (16.0-40.0) % [place] % (Auto) (0.0-15.0) % Eos % (Auto) (0.0-7.0) % Baso % (Auto) (0.0-1.5) % Neut # (Auto) (1.4-5.7) K/uL Lymph # (Auto) (0.6-2.4) K/uL [place] # (Auto) (0.0-0.8) K/uL Eos # (Auto) (0.0-0.7) K/uL Baso # (Auto) (0.0-0.1) K/uL Nucleated RBC % /100WBC Nucleated RBCs # K/uL Sodium (136-145) mmol/L Potassium (3.5-5.1) mmol/L Chloride (98-107) mmol/L Carbon Dioxide (21.0-32.0) mmol/L BUN (7.0-18.0) mg/dL Creatinine (0.6-1.0) mg/dL Est Cr Clr Drug Dosing Estimated GFR (MDRD) ml/min Glucose (74-106) mg/dL Calcium (8.5-10.1) mg/dL Total Bilirubin (0.2-1.0) mg/dL AST (15-37) IU/L ALT (14-63) IU/L Alkaline Phosphatase (46-116) U/L Troponin I (0.000-0.056) ng/mL Total Protein (6.4-8.2) g/dL Albumin (3.4-5.0) g/dL Globulin (2.6-4.0) g/dL Albumin/Globulin Ratio (0.9-1.6) Lipase (73-393) U/L Urine Color Urine Appearance Urine pH (5.0-8.0) Ur Specific [place] (1.001-1.035) Urine Protein (NEGATIVE) mg/dL Urine Glucose (UA) (NEGATIVE) mg/dL Urine Ketones (NEGATIVE) mg/dL Urine Occult Blood (NEGATIVE) Urine Nitrite (NEGATIVE) Urine Bilirubin (NEGATIVE) Urine Urobilinogen (<2.0) EU/dL Ur Leukocyte Esterase (NEGATIVE) Urine HCG, Qual NEGATIVE (NEGATIVE) Meds: Medications Generic Name Dose Route Start Last Admin Trade Name Freq PRN Reason Stop Dose Admin Sodium Chloride 10 ml 07/28/19 20:44 Saline Flush FLUSH ASDIRECTED PRN Keep Vein Open Sodium Chloride 2.5 ml 07/28/19 20:44 Saline Flush FLUSH ASDIRECTED PRN Keep Vein Open Discontinued Medications Generic Name Dose Route Start Last Admin Trade Name Freq PRN Reason Stop Dose Admin Sodium Chloride 1,000 mls @ 999 mls/hr 07/28/19 20:44 07/28/19 21:03 Normal Saline IV 07/28/19 21:44 999 mls/hr STAT ONE Administration Departure - Departure Time of Disposition: 21:52 Disposition: Home, Self-Care 01 Condition: Good Clinical Impression: Abdominal pain - Discharge Information Forms: ED Department Discharge Additional Instructions: The following information is given to patients seen in the emergency department who are being discharged to home. This information is to outline your options for follow-up care. We provide all patients seen in our emergency department with a follow-up referral. The need for follow-up, as well as the timing and circumstances, are variable depending upon the specifics of your emergency department visit. If you don't have a primary care physician on staff, we will provide you with a referral. We always advise you to contact your personal physician following an emergency department visit to inform them of the circumstance of the visit and for follow-up with them and/or the need for any referrals to a consulting specialist. The emergency department will also refer you to a specialist when appropriate. This referral assures that you have the opportunity for follow-up care with a specialist. All of these measure are taken in an effort to provide you with optimal care, which includes your follow-up. Under all circumstances we always encourage you to contact your private physician who remains a resource for coordinating your care. When calling for follow-up care, please make the office aware that this follow-up is from your recent emergency room visit. If for any reason you are refused follow-up, please contact the [facility] Emergency Department at and asked to speak to the emergency department charge nurse. [facility] [address] [place] [address] [place] [address] Follow up with primary care provider at your scheduled appointment on Wednesday Return to ED as needed as discussed Sepsis Event Note - Focused Exam Vital Signs: Vital Signs Temp Pulse Resp BP Pulse Ox 07/28/19 20:42 96.7 F L 115 H 17 88/69 L 100 Date Exam was Performed: 07/28/19 Time Exam was Performed: 21:52 - My Orders Last 24 Hours: My Active Orders 07/28/19 20:43 Saline Lock Insert [OM.PC] Stat 07/28/19 20:44 Sodium Chloride 0.9% [Saline Flush] 10 ml FLUSH ASDIRECTED PRN Sodium Chloride 0.9% [Saline Flush] 2.5 ml FLUSH ASDIRECTED PRN - Assessment/Plan Last 24 Hours: My Active Orders 07/28/19 20:43 Saline Lock Insert [OM.PC] Stat 07/28/19 20:44 Sodium Chloride 0.9% [Saline Flush] 10 ml FLUSH ASDIRECTED PRN Sodium Chloride 0.9% [Saline Flush] 2.5 ml FLUSH ASDIRECTED PRN
[2019-07-28 21:34] LABS: BLOOD UREA NITROGEN,BUN 9 mg/dL (7.0-18.0); CARBON DIOXIDE,CO2 27.9 mmol/L (21.0-32.0); CHLORIDE,CL 104 mmol/L (98-107); GLUCOSE RANDOM 109 mg/dL (74-106); LIPASE 102 U/L (73-393); POTASSIUM,K 3.7 mmol/L (3.5-5.1); SODIUM,NA 141 mmol/L (136-145)
--- NOTE | 2019-07-28 21:45 | CR ---
Chest: Portable view of the chest was obtained. Comparison: No prior chest imaging is available. Heart size and mediastinum are normal. Lungs are clear. Bony structures appear within normal limits for the patient's age. Impression: 1. Nothing acute is appreciated on portable chest x-ray. Diagnostic code #1 Study was dictated in MDT
[2019-07-28 21:58] VITALS: BP 113/72; PULSE 92
== END 2019-07-28 22:08 | disposition home or self-care (01) ==
LOC: MW.ED 20:14
DX: R10.12 Left upper quadrant pain (principal); R10.11 Right upper quadrant pain; Z88.5 Allergy status to narcotic agent; Z91.041 Radiographic dye allergy status
CPT/HCPCS: 36415; 71045; 80053; 81003; 81025; 83690; 84484; 85025; 93005; 99285; J7030; 99284

== ENCOUNTER 2019-10-28 16:41 | Emergency (ER) | payer OTHER ==
[2019-10-28] MEDS ORDERED: Ondansetron 4 MG/2 ML SDV ONE (17:01)
[2019-10-28] MEDS ORDERED: Lactated Ringers 1,000 ML IV ONE (17:05)
[2019-10-28] MEDS ORDERED: Ondansetron 4 MG/2 ML SDV IVPUSH ONE (17:05)
[2019-10-28 17:29] LABS: ACETAMINOPHEN <2.0 ug/mL
--- NOTE | 2019-10-28 17:31 | EDM.PDOC ---
<Jaswant Galindo - Last Filed: 10/29/19 04:33> ED HPI GENERAL MEDICAL PROBLEM - General Chief Complaint: Chest Pain Stated Complaint: CHEST PAIN,POSSIBLE LOW BLOOD PRESSURE Time Seen by Provider: 10/28/19 16:58 - Related Data Allergies Allergy/AdvReac Type Severity Reaction Status Date / Time caffeine Allergy heart races Verified 10/28/19 16:56 hydrocodone Allergy Tachycardia Verified 10/28/19 16:56 contrast Allergy Hives Uncoded 10/28/19 16:56 Home Meds: Home Meds ALPRAZolam [Alprazolam] 0.25 mg PO ASDIRECTED 10/28/19 [History] Esomeprazole Magnesium [Nexium] 40 mg PO DAILY 10/28/19 [History] Course - Vital Signs Text/Narrative:: The patient was feeling bad when I first interviewed her and I left her to rest while I saw several other patients and she got her CT scan - The patient rested in the department while I saw other patients and she got her CT scan. When I anticipated her alcohol level would be close to normal I interviewed her again. She was alert and her speech was coherent and she appeared completely sober. She states she drank a little and took some Xanax because she was depressed. Then she decided to go ahead and drink and take enough medicine to kill her self. She still feels like she might do that in the future because she started at the end of her rope and she is depressed. She has a prior attempt by wrist cutting over which she has had a tattoo placed to hide it. Her left wrist in fact has a tattoo that would hide the area where most slashes would cut the wrist. The patient admits that she needs psychiatric help and the only reason she has not gotten it is because she does not think she has enough money to afford it. She lives alone. She has moved here only recently. she appeared completely competent to understand the consequences of what she was telling me and I let her know she would go to another community to be evaluated by a psychiatrist brandon. She admitted this was necessary. I told the above story to Dr. Weiss at [facility] and he agreed she needed to come tonight for evaluation. They had a bed available. Accepted by Dr. Weiss at [facility] After the patient found out there would be delay in getting her to a facility for her psychiatric evaluation ( lack of availability of EMS for transport), she told me she would not hurt herself and she is sorry she told me the above. She said a friend, "Latasha" would pick her up, stay with her and make sure she got outpatient counseling. I spoke with Latasha and he said she needs help because of the stress of a recent breakup and move to get away from an ex boyfriend. He thinks she needs help to get through it. He did not know the extent of her depression and I didn't give him any details about what she had told me. I spoke again with Dr. Weiss because she is claiming that she felt she wasn't sober when she told me she had tried to kill herself and didn't deny that she might try again. He said he would be happy to evaluate her but had to do this when she arrived at [place] in [place], where she has a bed. I believe she was fully aware of what she was telling me earlier, as she admitted she did not remember who brought her here or what they're relationship to her was, but she remembered the circumstances that preceded her decreased level of consciousness and taking the pills and drinking. She insisted on leaving before being evaluated by psychiatry, so we had law enforcemment come and explain the process. I am not the appropriate person to decide whether she was saying she was suicidal to try to get some response or has changed her story to try to get away from the consequences of her original story. I think the better thing for her is to have the opportunity to have psychiatry evaluation and intervention. When we spoke earlier she admitted she needed to go, and I wrote the involuntary hold for just this reason that I was afraid she did indeed need this care but ight change her mind. Departure - Departure Disposition: DC/Tfer to Psych Hosp/[facility] Condition: Good Clinical Impression: Depression, Intentional benzodiazepine overdose Referrals: PCP,None [Primary Care Provider] - Forms: ED Department Discharge <Bekah Bermudez - Last Filed: 10/29/19 08:39> ED HPI GENERAL MEDICAL PROBLEM - History of Present Illness INITIAL COMMENTS - FREE TEXT/NARRATIVE: History of present illness: 24-year-old female presenting with chest pain/upper abdominal pain going since this morning. Apparently she has a history of anxiety, she was extremely anxious and therefore she took 6 of her 0.25 mg Xanax tabs this morning and then another 2 of them this afternoon, however she has had ongoing pain. Her significant other at the bedside reports that she has been very difficult to get up and walk around due to the heavy dose of medications she took. She did later admit to having consumed an entire bottle of vodka prior to the onset of her symptoms. Review of systems: As per history of present illness and below otherwise all systems reviewed and negative. Past medical history: As per history of present illness and as reviewed below otherwise noncontributory. Surgical history: As per history of present illness and as reviewed below otherwise noncontributory. Social history: No reported history of drug or alcohol abuse. Family history: As per history of present illness and as reviewed below otherwise noncontributory. Physical exam: GEN: no acute distress, well appearing HEENT: Atraumatic, normocephalic, mucous membranes moist, Neck: supple, nontender, trachea midline. Lungs: No respiratory distress. Heart: Tachycardic Abdomen: Soft, nondistended, nontender. Back: nontender Extremities: Atraumatic. Neurovascularly intact. Neuro: Maintains eyes closed, however answers questions appropriately, and is oriented. She does occasionally open eyes during exam, and is able to converse relatively well. Neuro Exam nonfocal. Psych: Appears anxious. Skin: warm, dry, no lesions Diagnostics: Labs, EKG Therapeutics: IV fluids MDM: Impression: [] Plan: [] Definitive disposition and diagnosis as appropriate pending reevaluation and review of above. Upper Abdomen Pain Score (Numeric/FACES): 10 Past Medical History - Past Health History Medical/Surgical History: Denies Medical/Surgical History HEENT History: Reports: None Cardiovascular History: Reports: None Other Cardiovascular History: chest pains Respiratory History: Reports: None Gastrointestinal History: Reports: GERD, Irritable Bowel Syndrome Other Gastrointestinal History: rt upper quad pain Genitourinary History: Reports: None FACTORY WORKER History: Reports: None Musculoskeletal History: Reports: None Neurological History: Reports: None Psychiatric History: Reports: Anxiety, Suicidal Ideation Endocrine/Metabolic History: Reports: None Hematologic History: Reports: None Immunologic History: Reports: None Oncologic (Cancer) History: Reports: None Dermatologic History: Reports: None - Infectious Disease History Infectious Disease History: Reports: None - Past Surgical History Head Surgeries/Procedures: Reports: None Respiratory Surgical History: Reports: None GI Surgical History: Reports: Appendectomy, Colonoscopy, EGD Endocrine Surgical History: Reports: None Neurological Surgical History: Reports: None Musculoskeletal Surgical History: Reports: None Oncologic Surgical History: Reports: None Dermatological Surgical History: Reports: None Social & Family History - Family History Family Medical History: Noncontributory HEENT: Reports: None Cardiac: Reports: None - Tobacco Use Smoking Status *Q: Never Smoker - Caffeine Use Caffeine Use: Reports: None - Recreational Drug Use Recreational Drug Use: Yes Drug Use in Last 12 Months: Yes Recreational Drug Type: Reports: Marijuana/Hashish Recreational Drug Use Frequency: Weekly ED ROS GENERAL - Review of Systems Review Of Systems: See Below (See HPI) ED EXAM, GENERAL - Physical Exam Exam: See Below (See HPI) Course - Vital Signs Text/Narrative:: Initially presenting with chest pain, abdominal pain and tachycardia. EKG nonischemic. Patient reported accidental overdose of Xanax as patient did not understand the recommended dosing on the prescription bottle. Had also been drinking. Alcohol level was elevated. However even after IV fluids, resting, and clinical sobriety, the patient was still tachycardic. As she had been having chest pain I did add on a d-dimer to assess for PE/DVT, although the patient is otherwise low risk. She does not take any hormonal medications nor smoke. The d-dimer did come back elevated and therefore CT angio chest was or dered. Patient was signed out to Dr. Galindo at the change of shift pending CT results. The CT scan apparently was negative, however on reassessment, and while clinically sober the patient reported to Dr. Galindo having intentionally overdosed on alcohol and Xanax in an attempt to kill herself. Therefore she was placed on an involuntary psychiatric/suicide hold and was accepted to a psychiatric facility. I received her back in signout at change of shift at 7 AM on October 28 pending ambulance transfer to [place]. At 8:30 AM, the ambulance arrived to transport the patient. Last Recorded V/S: Last Vital Signs Temp 97.7 F 10/28/19 16:53 Pulse 99 10/29/19 04:30 Resp 18 10/29/19 04:30 BP 127/81 10/29/19 04:30 Pulse Ox 100 07/19/20 04:30 - Orders/Labs/Meds Orders: Active Orders 24 hr Category Date Time Status EKG Documentation Completion [RC] STAT Care 10/28/19 16:59 Active Sodium Chloride 0.9% [Saline Flush] Med 10/28/19 18:36 Active 10 ml FLUSH ASDIRECTED PRN Sodium Chloride 0.9% [Saline Flush] Med 10/28/19 18:36 Active 2.5 ml FLUSH ASDIRECTED PRN Saline Lock Insert [OM.PC] Stat Oth 10/28/19 18:36 Ordered Medication Orders Sodium Chloride (Saline Flush) 10 ml FLUSH ASDIRECTED PRN PRN Reason: Keep Vein Open Sodium Chloride (Saline Flush) 2.5 ml FLUSH ASDIRECTED PRN PRN Reason: Keep Vein Open Labs: Laboratory Tests 10/28/19 10/28/19 10/28/19 Range/Units 17:00 17:00 17:00 WBC 17.62 H (4.0-11.0) K/uL RBC 4.63 (4.30-5.90) M/uL Hgb 14.8 (12.0-16.0) g/dL Hct 42.3 (36.0-46.0) % MCV 91.4 (80.0-98.0) fL MCH 32.0 (27.0-32.0) pg MCHC 35.0 (31.0-37.0) g/dL RDW Std Deviation 48.0 (28.0-62.0) fl RDW Coeff of Pema 14 (11.0-15.0) % Plt Count 286 (150-400) K/uL MPV 9.80 (7.40-12.00) fL Neut % (Auto) 82.9 H (48.0-80.0) % Lymph % (Auto) 11.9 L (16.0-40.0) % [place] % (Auto) 4.9 (0.0-15.0) % Eos % (Auto) 0.2 (0.0-7.0) % Baso % (Auto) 0.1 (0.0-1.5) % Neut # (Auto) 14.6 H (1.4-5.7) K/uL Lymph # (Auto) 2.1 (0.6-2.4) K/uL [place] # (Auto) 0.9 H (0.0-0.8) K/uL Eos # (Auto) 0.0 (0.0-0.7) K/uL Baso # (Auto) 0.0 (0.0-0.1) K/uL Nucleated RBC % 0.0 /100WBC Nucleated RBCs # 0 K/uL D-Dimer, Quantitative 1.47 H (0.0-0.50) mg/L FEU Sodium 142 (136-145) mmol/L Potassium 3.3 L (3.5-5.1) mmol/L Chloride 105 (98-107) mmol/L Carbon Dioxide 23.5 (21.0-32.0) mmol/L BUN 11 (7.0-18.0) mg/dL Creatinine 0.7 (0.6-1.0) mg/dL Est Cr Clr Drug Dosing 113.43 mL/min Estimated GFR (MDRD) > 60.0 ml/min Glucose 109 H (74-106) mg/dL Calcium 8.4 L (8.5-10.1) mg/dL Magnesium 2.3 (1.8-2.4) mg/dL Total Bilirubin 0.7 (0.2-1.0) mg/dL AST 51 H (15-37) IU/L ALT 35 (14-63) IU/L Alkaline Phosphatase 48 (46-116) U/L Troponin I (0.000-0.056) ng/mL Total Protein 7.1 (6.4-8.2) g/dL Albumin 3.7 (3.4-5.0) g/dL Globulin 3.4 (2.6-4.0) g/dL Albumin/Globulin Ratio 1.1 (0.9-1.6) TSH 3rd Generation 0.27 L (0.36-3.74) uIU/mL Urine Color Urine Appearance Urine pH (5.0-8.0) Ur Specific [place] (1.001-1.035) Urine Protein (NEGATIVE) mg/dL Urine Glucose (UA) (NEGATIVE) mg/dL Urine Ketones (NEGATIVE) mg/dL Urine Occult Blood (NEGATIVE) Urine Nitrite (NEGATIVE) Urine Bilirubin (NEGATIVE) Urine Urobilinogen (<2.0) EU/dL Ur Leukocyte Esterase (NEGATIVE) Urine RBC (0-2/HPF) Urine WBC (0-5/HPF) Ur Epithelial Cells (NONE-FEW) Urine Bacteria (NEGATIVE) Urine HCG, Qual (NEGATIVE) Salicylates 3.9 (0-20) mg/dL Urine Opiates Screen (NEGATIVE) Ur Oxycodone Screen (NEGATIVE) Urine Methadone Screen (NEGATIVE) Acetaminophen <2.0 ug/mL Ur Barbiturates Screen (NEGATIVE) Ur Phencyclidine Scrn (NEGATIVE) Ur Amphetamine Screen (NEGATIVE) U Methamphetamines Scrn (NEGATIVE) U Benzodiazepines Scrn (NEGATIVE) U Cocaine Metab Screen (NEGATIVE) U Marijuana (THC) Screen (NEGATIVE) Ethyl Alcohol 214 mg/dL COVID-19 (RAFFY) (NEGATIVE) 10/28/19 10/28/19 10/28/19 Range/Units 17:00 19:45 19:45 WBC (4.0-11.0) K/uL RBC (4.30-5.90) M/uL Hgb (12.0-16.0) g/dL Hct (36.0-46.0) % MCV (80.0-98.0) fL MCH (27.0-32.0) pg MCHC (31.0-37.0) g/dL RDW Std Deviation (28.0-62.0) fl RDW Coeff of Pema (11.0-15.0) % Plt Count (150-400) K/uL MPV (7.40-12.00) fL Neut % (Auto) (48.0-80.0) % Lymph % (Auto) (16.0-40.0) % [place] % (Auto) (0.0-15.0) % Eos % (Auto) (0.0-7.0) % Baso % (Auto) (0.0-1.5) % Neut # (Auto) (1.4-5.7) K/uL Lymph # (Auto) (0.6-2.4) K/uL [place] # (Auto) (0.0-0.8) K/uL Eos # (Auto) (0.0-0.7) K/uL Baso # (Auto) (0.0-0.1) K/uL Nucleated RBC % /100WBC Nucleated RBCs # K/uL D-Dimer, Quantitative (0.0-0.50) mg/L FEU Sodium (136-145) mmol/L Potassium (3.5-5.1) mmol/L Chloride (98-107) mmol/L Carbon Dioxide (21.0-32.0) mmol/L BUN (7.0-18.0) mg/dL Creatinine (0.6-1.0) mg/dL Est Cr Clr Drug Dosing mL/min Estimated GFR (MDRD) ml/min Glucose (74-106) mg/dL Calcium (8.5-10.1) mg/dL Magnesium (1.8-2.4) mg/dL Total Bilirubin (0.2-1.0) mg/dL AST (15-37) IU/L ALT (14-63) IU/L Alkaline Phosphatase (46-116) U/L Troponin I < 0.050 (0.000-0.056) ng/mL Total Protein (6.4-8.2) g/dL Albumin (3.4-5.0) g/dL Globulin (2.6-4.0) g/dL Albumin/Globulin Ratio (0.9-1.6) TSH 3rd Generation (0.36-3.74) uIU/mL Urine Color YELLOW Urine Appearance SLT CLOUDY Urine pH 7.5 (5.0-8.0) Ur Specific [place] 1.015 (1.001-1.035) Urine Protein NEGATIVE (NEGATIVE) mg/dL Urine Glucose (UA) NEGATIVE (NEGATIVE) mg/dL Urine Ketones NEGATIVE (NEGATIVE) mg/dL Urine Occult Blood LARGE H (NEGATIVE) Urine Nitrite NEGATIVE (NEGATIVE) Urine Bilirubin NEGATIVE (NEGATIVE) Urine Urobilinogen 0.2 (<2.0) EU/dL Ur Leukocyte Esterase NEGATIVE (NEGATIVE) Urine RBC 5-10 (0-2/HPF) Urine WBC 0-3 (0-5/HPF) Ur Epithelial Cells RARE (NONE-FEW) Urine Bacteria RARE (NEGATIVE) Urine HCG, Qual NEGATIVE (NEGATIVE) Salicylates (0-20) mg/dL Urine Opiates Screen (NEGATIVE) Ur Oxycodone Screen (NEGATIVE) Urine Methadone Screen (NEGATIVE) Acetaminophen ug/mL Ur Barbiturates Screen (NEGATIVE) Ur Phencyclidine Scrn (NEGATIVE) Ur Amphetamine Screen (NEGATIVE) U Methamphetamines Scrn (NEGATIVE) U Benzodiazepines Scrn (NEGATIVE) U Cocaine Metab Screen (NEGATIVE) U Marijuana (THC) Screen (NEGATIVE) Ethyl Alcohol mg/dL COVID-19 (RAFFY) (NEGATIVE) 10/28/19 10/28/19 Range/Units 19:45 22:30 WBC (4.0-11.0) K/uL RBC (4.30-5.90) M/uL Hgb (12.0-16.0) g/dL Hct (36.0-46.0) % MCV (80.0-98.0) fL MCH (27.0-32.0) pg MCHC (31.0-37.0) g/dL RDW Std Deviation (28.0-62.0) fl RDW Coeff of Pema (11.0-15.0) % Plt Count (150-400) K/uL MPV (7.40-12.00) fL Neut % (Auto) (48.0-80.0) % Lymph % (Auto) (16.0-40.0) % [place] % (Auto) (0.0-15.0) % Eos % (Auto) (0.0-7.0) % Baso % (Auto) (0.0-1.5) % Neut # (Auto) (1.4-5.7) K/uL Lymph # (Auto) (0.6-2.4) K/uL [place] # (Auto) (0.0-0.8) K/uL Eos # (Auto) (0.0-0.7) K/uL Baso # (Auto) (0.0-0.1) K/uL Nucleated RBC % /100WBC Nucleated RBCs # K/uL D-Dimer, Quantitative (0.0-0.50) mg/L FEU Sodium (136-145) mmol/L Potassium (3.5-5.1) mmol/L Chloride (98-107) mmol/L Carbon Dioxide (21.0-32.0) mmol/L BUN (7.0-18.0) mg/dL Creatinine (0.6-1.0) mg/dL Est Cr Clr Drug Dosing mL/min Estimated GFR (MDRD) ml/min Glucose (74-106) mg/dL Calcium (8.5-10.1) mg/dL Magnesium (1.8-2.4) mg/dL Total Bilirubin (0.2-1.0) mg/dL AST (15-37) IU/L ALT (14-63) IU/L Alkaline Phosphatase (46-116) U/L Troponin I (0.000-0.056) ng/mL Total Protein (6.4-8.2) g/dL Albumin (3.4-5.0) g/dL Globulin (2.6-4.0) g/dL Albumin/Globulin Ratio (0.9-1.6) TSH 3rd Generation (0.36-3.74) uIU/mL Urine Color Urine Appearance Urine pH (5.0-8.0) Ur Specific [place] (1.001-1.035) Urine Protein (NEGATIVE) mg/dL Urine Glucose (UA) (NEGATIVE) mg/dL Urine Ketones (NEGATIVE) mg/dL Urine Occult Blood (NEGATIVE) Urine Nitrite (NEGATIVE) Urine Bilirubin (NEGATIVE) Urine Urobilinogen (<2.0) EU/dL Ur Leukocyte Esterase (NEGATIVE) Urine RBC (0-2/HPF) Urine WBC (0-5/HPF) Ur Epithelial Cells (NONE-FEW) Urine Bacteria (NEGATIVE) Urine HCG, Qual (NEGATIVE) Salicylates (0-20) mg/dL Urine Opiates Screen NEGATIVE (NEGATIVE) Ur Oxycodone Screen NEGATIVE (NEGATIVE) Urine Methadone Screen NEGATIVE (NEGATIVE) Acetaminophen ug/mL Ur Barbiturates Screen NEGATIVE (NEGATIVE) Ur Phencyclidine Scrn NEGATIVE (NEGATIVE) Ur Amphetamine Screen NEGATIVE (NEGATIVE) U Methamphetamines Scrn NEGATIVE (NEGATIVE) U Benzodiazepines Scrn NEGATIVE (NEGATIVE) U Cocaine Metab Screen NEGATIVE (NEGATIVE) U Marijuana (THC) Screen NEGATIVE (NEGATIVE) Ethyl Alcohol mg/dL COVID-19 (RAFFY) NEGATIVE (NEGATIVE) Meds: Medications Generic Name Dose Route Start Last Admin Trade Name Freq PRN Reason Stop Dose Admin Sodium Chloride 10 ml 10/28/19 18:36 Saline Flush FLUSH ASDIRECTED PRN Keep Vein Open Sodium Chloride 2.5 ml 10/28/19 18:36 Saline Flush FLUSH ASDIRECTED PRN Keep Vein Open Discontinued Medications Generic Name Dose Route Start Last Admin Trade Name Freq PRN Reason Stop Dose Admin Lactated Ringer's 1,000 mls @ 999 mls/hr 10/28/19 17:05 07/18/20 17:05 Ringers, Lactated IV 10/28/19 18:05 999 mls/hr .BOLUS ONE Administration Sodium Chloride 1,000 mls @ 999 mls/hr 10/28/19 18:36 10/28/19 18:42 Normal Saline IV 10/28/19 19:36 999 mls/hr .Bolus ONE Administration Ibuprofen 400 mg 10/29/19 08:20 10/29/19 08:26 Motrin PO 10/29/19 08:21 400 mg ONETIME ONE Administration Iopamidol 50 ml 10/28/19 20:39 10/28/19 20:39 Isovue-370 (76%) IV 10/28/19 20:40 50 ml ONETIME ONE Administration Ondansetron HCl Confirm 10/28/19 17:01 10/28/19 17:06 Zofran Administered 10/28/19 17:02 Not Given Dose 4 mg .ROUTE .STK-MED ONE Ondansetron HCl 4 mg 10/28/19 17:05 10/28/19 17:07 Zofran IVPUSH 10/28/19 17:06 4 mg ONETIME ONE Administration - Re-Assessments/Exams Free Text/Narrative Re-Assessment/Exam: 10/28/19 18:37 Patient reassessed. She is feeling much better though she is still tachycardic. Additional fluids will be ordered. D-dimer will be ordered. She has no PE/DVT risk factors. 10/28/19 19:32 Patient's d-dimer came back elevated. Therefore CT scan was ordered. Departure - Departure Time of Disposition: 08:31 Reason for Transfer *Q: Other (Psychiatry) Sepsis Event Note (ED) - Evaluation Sepsis Screening Result: No Definite Risk - Focused Exam Vital Signs: Vital Signs Pulse Resp BP Pulse Ox 10/29/19 04:30 99 18 127/81 100 10/29/19 01:00 111 H 16 129/81 97 10/29/19 00:00 136 H 17 138/87 99 10/28/19 23:00 106 H 17 139/77 98 10/28/19 21:34 130 H 16 134/84 99 10/28/19 20:47 112 H 18 127/86 98 - My Orders Last 24 Hours: My Active Orders 10/28/19 16:59 EKG Documentation Completion [RC] STAT 10/28/19 18:36 Sodium Chloride 0.9% [Saline Flush] 10 ml FLUSH ASDIRECTED PRN Sodium Chloride 0.9% [Saline Flush] 2.5 ml FLUSH ASDIRECTED PRN Saline Lock Insert [OM.PC] Stat - Assessment/Plan Last 24 Hours: My Active Orders 10/28/19 16:59 EKG Documentation Completion [RC] STAT 10/28/19 18:36 Sodium Chloride 0.9% [Saline Flush] 10 ml FLUSH ASDIRECTED PRN Sodium Chloride 0.9% [Saline Flush] 2.5 ml FLUSH ASDIRECTED PRN Saline Lock Insert [OM.PC] Stat
[2019-10-28 17:38] LABS: BLOOD UREA NITROGEN,BUN 11 mg/dL (7.0-18.0); CARBON DIOXIDE,CO2 23.5 mmol/L (21.0-32.0); CHLORIDE,CL 105 mmol/L (98-107); GLUCOSE RANDOM 109 mg/dL (74-106); POTASSIUM,K 3.3 mmol/L (3.5-5.1); SODIUM,NA 142 mmol/L (136-145)
[2019-10-28] MEDS ORDERED: Sodium Chloride 0.9% 1,000 ML IV ONE (18:36)
[2019-10-28] MEDS ORDERED: Sodium Chloride 0.9% 10 ML Syringe FLUSH PRN (18:36)
[2019-10-28] MEDS ORDERED: Sodium Chloride 0.9% 2.5 ML Syringe FLUSH PRN (18:36)
[2019-10-28] MEDS ORDERED: Iopamidol 755 MG/ML 50 ML Bottle IV ONE (20:39)
--- NOTE | 2019-10-28 21:01 | CT ---
INDICATION: Chest pain, tachycardia TECHNIQUE: CT chest with i.v. contrast using pulmonary angiographic technique. Coronal and sagittal reformats were obtained. CONTRAST: 50 mL Isovue 370 COMPARISON: None FINDINGS: Cardiovascular: The pulmonary arteries are unremarkable in enhancement with no evidence of acute pulmonary embolism. The heart has an unremarkable appearance and size. No sign of aneurysm in the thoracic aorta. Mediastinum: Soft tissue is noted in the anterior mediastinum which is likely due to residual thymic tissue in this young patient. Lung: Both lungs are unremarkable in appearance. Pleura and pericardium: No sign of pleural effusion seen. No significant pericardial effusion is present. Chest wall and axilla: No mass or adenopathy seen. Bone: Unremarkable for age. Upper abdomen: Unremarkable. IMPRESSION: 1. No CT evidence of acute pulmonary emboli seen. Dictated by Star Grace MD @ 10/28/2019 8:59:32 PM Please note that all CT scans at this facility use dose modulation, iterative reconstruction, and/or weight-based dosing when appropriate to reduce radiation dose to as low as reasonably achievable. Dictated by: Star Grace MD @ 10/28/2019 20:59:40 (Electronically Signed)
[2019-10-29] MEDS ORDERED: Ibuprofen 400 MG Tab PO ONE (08:20)
[2019-10-29 09:14] VITALS: BP 119/76; PULSE 103
== END 2019-10-29 08:30 ==
LOC: MW.ED 16:41
DX: F32.9 Major depressive disorder, single episode, unspecified (principal); T42.4X2A Poisoning by benzodiazepines, intentional self-harm, initial encounter; K21.9 Gastro-esophageal reflux disease without esophagitis; F41.9 Anxiety disorder, unspecified; Z88.5 Allergy status to narcotic agent; Z91.041 Radiographic dye allergy status; Z88.8 Allergy status to other drugs, medicaments and biological substances; Z79.899 Other long term (current) drug therapy; Z20.828 Contact with and (suspected) exposure to other viral communicable diseases
CPT/HCPCS: 36415; 71275; 80053; 80305; 80307; 81001; 81025; 83735; 84443; 84484; 85025; 85379; 87635; 93005; 96374; 99285; A9270; J2405; J7030; J7120; Q9967; U0002

== ENCOUNTER 2019-12-21 14:56 | Emergency (ER) | payer OTHER ==
--- NOTE | 2019-12-21 15:18 | EDM.PDOC ---
ED HPI GENERAL MEDICAL PROBLEM - General Chief Complaint: Chest Pain Stated Complaint: PANIC ATTACK Time Seen by Provider: 12/21/19 14:57 Source of Information: Reports: Patient History Limitations: Reports: No Limitations - History of Present Illness INITIAL COMMENTS - FREE TEXT/NARRATIVE: HISTORY AND PHYSICAL: History of present illness: Patient is a 24-year-old female who presents to the ED today via EMS with concern of a "panic attack ". Patient states she was driving down the road when she began to feel short of breath and was having chest pain and felt anxious. Patient states she has had panic attacks in the past and this is typical of her panic attacks. Patient states that because she was driving and felt short of breath she decided to call the ambulance who suggested she come to the ED to be evaluated. Patient states she does feel slightly anxious but is not having any chest pain or shortness of breath at this time. Patient states she was diagnosed with COVID 10 days ago but was retested a few days ago and this was negative. Patient denies any other symptoms or concerns. Patient denies fever, chills, or cough. Denies headache, neck stiff ness, change in vision, syncope, or near syncope. Denies nausea, vomiting, abdominal pain, diarrhea, constipation, or dysuria. Has not noted any blood in urine or stool. Patient has been eating and drinking appropriately. Review of systems: As per history of present illness and below otherwise all systems reviewed and negative. Past medical history: As per history of present illness and as reviewed below otherwise noncontributory. Surgical history: As per history of present illness and as reviewed below otherwise noncontributory. Social history: See social history for further information Family history: As per history of present illness and as reviewed below otherwise noncontributory. Physical exam: General: Patient is alert, oriented, and in no acute distress. Patient sitting comfortably on exam table but anxious appearing. HEENT: Atraumatic, normocephalic, pupils equal and reactive bilaterally, negative for conjunctival pallor or scleral icterus, mucous membranes moist, TMs normal bilaterally, throat clear, neck supple, nontender, trachea midline. No drooling or trismus noted. No meningeal signs. No hot potato voice noted. Lungs: Clear to auscultation, breath sounds equal bilaterally, chest nontender. Heart: S1S2, regular rate and rhythm without overt murmur Abdomen: Soft, nondistended, nontender. Negative for masses or hepatosplenomegaly. Negative for costovertebral tenderness. Pelvis: Stable nontender. Genitourinary: Deferred. Rectal: Deferred. Skin: Intact, warm, dry. No lesions or rashes noted. Extremities: Atraumatic, negative for cords or calf pain. Neurovascular unremarkable. Neuro: Awake, alert, oriented. Cranial nerves II through XII unremarkable. Cerebellum unremarkable. Motor and sensory unremarkable throughout. Exam nonfocal. Notes: Patient declines all diagnostics and therapeutics today stating that she would like to leave the emergency room. Discussed importance for follow-up with a primary care provider. Voices understanding and is agreeable to plan of care. Denies any further questions or concerns at this time. Diagnostics: Patient declines all diagnostics today Therapeutics: None Prescription: None Impression: Anxiety Medical screening exam Plan: 1. Follow up with a primary care provider as discussed. Return to the ED as needed and as discussed. Definitive disposition and diagnosis as appropriate pending reevaluation and review of above. chest Pain Score (Numeric/FACES): 5 - Related Data Allergies Allergy/AdvReac Type Severity Reaction Status Date / Time caffeine Allergy heart races Verified 12/21/19 15:01 hydrocodone Allergy Tachycardia Verified 12/21/19 15:01 prednisone Allergy Tachycardia Verified 12/21/19 15:01 contrast Allergy Hives Uncoded 12/21/19 15:01 Home Meds: Home Meds Esomeprazole Magnesium [Nexium] 40 mg PO DAILY 10/28/19 [History] Sertraline [Zoloft] 50 mg PO DAILY 12/21/19 [History] Past Medical History - Past Health History Medical/Surgical History: Denies Medical/Surgical History HEENT History: Reports: None Cardiovascular History: Reports: None Other Cardiovascular History: chest pains Respiratory History: Reports: None Gastrointestinal History: Reports: GERD Other Gastrointestinal History: rt upper quad pain Genitourinary History: Reports: None WEATHER ANCHOR History: Reports: None Musculoskeletal History: Reports: None Neurological History: Reports: None Psychiatric History: Reports: Anxiety, Depression, Suicidal Ideation Endocrine/Metabolic History: Reports: None Hematologic History: Reports: None Immunologic History: Reports: None Oncologic (Cancer) History: Reports: None Dermatologic History: Reports: None - Infectious Disease History Infectious Disease History: Reports: None - Past Surgical History Head Surgeries/Procedures: Reports: None Respiratory Surgical History: Reports: None GI Surgical History: Reports: Cholecystectomy, Colonoscopy, EGD Endocrine Surgical History: Reports: None Neurological Surgical History: Reports: None Musculoskeletal Surgical History: Reports: None Oncologic Surgical History: Reports: None Dermatological Surgical History: Reports: None Social & Family History - Family History Family Medical History: Noncontributory HEENT: Reports: None Cardiac: Reports: None - Tobacco Use Smoking Status *Q: Never Smoker - Caffeine Use Caffeine Use: Reports: None - Recreational Drug Use Recreational Drug Use: Yes Drug Use in Last 12 Months: Yes Recreational Drug Type: Reports: Marijuana/Hashish Recreational Drug Use Frequency: Daily ED ROS GENERAL - Review of Systems Review Of Systems: Comprehensive ROS is negative, except as noted in HPI. ED EXAM, GENERAL - Physical Exam Exam: See Below (see dictation) Course - Vital Signs Last Recorded V/S: Last Vital Signs Temp 97.3 F 12/21/19 14:57 Pulse 122 H 12/21/19 14:57 Resp 20 12/21/19 14:57 BP 124/86 12/21/19 14:57 Pulse Ox 98 12/21/19 14:57 - Orders/Labs/Meds Orders: Active Orders 24 hr Category Date Time Status EKG Documentation Completion [RC] STAT Care 12/21/19 15:03 Active Departure - Departure Time of Disposition: 15:15 Disposition: Home, Self-Care 01 Clinical Impression: Anxiety, Encounter for medical screening examination - Discharge Information Additional Instructions: The following information is given to patients seen in the emergency department who are being discharged to home. This information is to outline your options for follow-up care. We provide all patients seen in our emergency department with a follow-up referral. The need for follow-up, as well as the timing and circumstances, are variable depending upon the specifics of your emergency department visit. If you don't have a primary care physician on staff, we will provide you with a referral. We always advise you to contact your personal physician following an emergency department visit to inform them of the circumstance of the visit and for follow-up with them and/or the need for any referrals to a consulting specialist. The emergency department will also refer you to a specialist when appropriate. This referral assures that you have the opportunity for follow-up care with a specialist. All of these measure are taken in an effort to provide you with optimal care, which includes your follow-up. Under all circumstances we always encourage you to contact your private physician who remains a resource for coordinating your care. When calling for follow-up care, please make the office aware that this follow-up is from your recent emergency room visit. If for any reason you are refused follow-up, please contact the [facility] Emergency Department at and asked to speak to the emergency department charge nurse. [facility] [address] [place] [id number] [place] [address] 1. Follow up with a primary care provider as discussed. Return to the ED as needed and as discussed. Sepsis Event Note (ED) - Evaluation Sepsis Screening Result: No Definite Risk - Focused Exam Vital Signs: Vital Signs Temp Pulse Resp BP Pulse Ox 12/21/19 14:57 97.3 F 122 H 20 124/86 98 - My Orders Last 24 Hours: My Active Orders 12/21/19 15:03 EKG Documentation Completion [RC] STAT - Assessment/Plan Last 24 Hours: My Active Orders 12/21/19 15:03 EKG Documentation Completion [RC] STAT
[2019-12-21 19:43] VITALS: BP 103/54; PULSE 108
== END 2019-12-21 15:17 | disposition home or self-care (01) ==
LOC: MW.ED 14:56
DX: F41.9 Anxiety disorder, unspecified (principal); F32.9 Major depressive disorder, single episode, unspecified; K21.9 Gastro-esophageal reflux disease without esophagitis; Z90.49 Acquired absence of other specified parts of digestive tract; Z88.5 Allergy status to narcotic agent; Z88.8 Allergy status to other drugs, medicaments and biological substances; Z79.899 Other long term (current) drug therapy
CPT/HCPCS: 99282; 99285-25

== ENCOUNTER 2019-12-23 22:56 | Emergency (ER) | payer OTHER ==
[2019-12-23] MEDS ORDERED: Sodium Chloride 0.9% 2.5 ML Syringe FLUSH PRN (23:18)
[2019-12-23] MEDS ORDERED: Sodium Chloride 0.9% 10 ML Syringe FLUSH PRN (23:18)
--- NOTE | 2019-12-23 23:21 | EDM.PDOC ---
ED HPI GENERAL MEDICAL PROBLEM - General Chief Complaint: Abdominal Pain Stated Complaint: stomache pain Time Seen by Provider: 12/23/19 23:07 - History of Present Illness INITIAL COMMENTS - FREE TEXT/NARRATIVE: History of present illness: [] Case began to have pain in the left upper quadrant and left hypogastrium yesterday. Today she began to have nausea and diarrhea. She has vomiting of dark material and diarrhea with dark coffee-ground material. The pain is moderately severe and continuous this afternoon. Nothing makes it better or worse. It does not hurt to breathe. She is not short of breath. Not really in her chest. Review of systems: As per history of present illness and below otherwise all systems reviewed and negative. Past medical history: As per history of present illness and as reviewed below otherwise noncontributory. Surgical history: As per history of present illness and as reviewed below otherwise noncontributory. Social history: No reported history of drug or alcohol abuse. Family history: As per history of present illness and as reviewed below otherwise noncontributory. Physical exam: Constitutional - well developed, well-nourished and in no acute distress HEENT - normocephalic, no evidence of trauma - external nose and mouth normal - no mass in neck and no JVD - mucosae moist EYES - full EOM, PERRL, no icterus - no evidence of inflammation, injection, or drainage Respiratory - no respiratory distress, equal bilateral expansion, lungs clear to auscultation and no abnormal lung sounds Cardiovascular - Regular Rhythm with S1 and S2 appreciated and no murmur, gallop or rub. GI -tenderness is more in the left upper quadrant and epigastrium but there is no guarding or rebound. Abdomen soft without distension or organomegaly - diminished bowel sounds - no guard or rebound Musculoskeletal no gross deformity of long bones or joints - no tenderness, swelling or edema Neurologic - Alert and oriented times four - CN II-XII grossly intact - motor sensory and coordination symmetrically normal Psychiatric - appropriate mood and affect with normal thought content Hematologic - No petechiae or purpura - mucosa appropriate color and sclera not pale - normal nail bed color and refill Integument - no rash or evidence of trauma - normal turgor Stool sample was occult blood negative Diagnostics: [] Therapeutics: [] Impression: [] Plan: [] Definitive disposition and diagnosis as appropriate pending reevaluation and review of above. left abdomen, left chest & arm Pain Score (Numeric/FACES): 5 - Related Data Allergies Allergy/AdvReac Type Severity Reaction Status Date / Time caffeine Allergy heart races Verified 12/23/19 23:07 hydrocodone Allergy Tachycardia Verified 12/23/19 23:07 prednisone Allergy Tachycardia Verified 12/23/19 23:07 contrast Allergy Hives Uncoded 12/23/19 23:07 Home Meds: Home Meds Esomeprazole Magnesium [Nexium] 40 mg PO DAILY 10/28/19 [History] Sertraline [Zoloft] 50 mg PO DAILY 12/21/19 [History] Past Medical History - Past Health History Medical/Surgical History: Denies Medical/Surgical History HEENT History: Reports: None Cardiovascular History: Reports: None Other Cardiovascular History: chest pains Respiratory History: Reports: None Gastrointestinal History: Reports: GERD Other Gastrointestinal History: rt upper quad pain Genitourinary History: Reports: None FLOAT NURSE History: Reports: None Musculoskeletal History: Reports: None Neurological History: Reports: None Psychiatric History: Reports: Anxiety, Depression, Suicidal Ideation Endocrine/Metabolic History: Reports: None Hematologic History: Reports: None Immunologic History: Reports: None Oncologic (Cancer) History: Reports: None Dermatologic History: Reports: None - Infectious Disease History Infectious Disease History: Reports: None - Past Surgical History Head Surgeries/Procedures: Reports: None Respiratory Surgical History: Reports: None GI Surgical History: Reports: Cholecystectomy, Colonoscopy, EGD Endocrine Surgical History: Reports: None Neurological Surgical History: Reports: None Musculoskeletal Surgical History: Reports: None Oncologic Surgical History: Reports: None Dermatological Surgical History: Reports: None Social & Family History - Family History Family Medical History: Noncontributory HEENT: Reports: None Cardiac: Reports: None - Tobacco Use Smoking Status *Q: Never Smoker - Caffeine Use Caffeine Use: Reports: None - Recreational Drug Use Recreational Drug Use: Yes Drug Use in Last 12 Months: Yes Recreational Drug Type: Reports: Marijuana/Hashish Recreational Drug Use Frequency: Daily ED ROS GENERAL - Review of Systems Review Of Systems: Comprehensive ROS is negative, except as noted in HPI. ED EXAM, GENERAL - Physical Exam Exam: See Below Free Text/Narrative:: My physical exam as in the HPI Course - Vital Signs Text/Narrative:: After careful review of her history and symptoms it is not suggestive of pulmonary embolus at all. Have a mild elevation of the d-dimer but I discounted this because of the history. She has been basically dehydration with some abdominal pain and diarrhea. Plan to stop the diarrhea and rehydrate. NSAIDs advised for the pain since she does not actually have blood in her stool. Patient discharged in satisfactory condition. Last Recorded V/S: Last Vital Signs Temp 96.8 F L 12/23/19 23:04 Pulse 101 H 12/24/19 00:38 Resp 14 12/24/19 00:38 BP 111/59 L 12/24/19 00:38 Pulse Ox 98 12/24/19 00:38 - Orders/Labs/Meds Orders: Active Orders 24 hr Category Date Time Status OCCULT BLOOD DIAGNOSTIC [OP] Stat Lab 12/23/19 23:20 Ordered Sodium Chloride 0.9% [Saline Flush] Med 12/23/19 23:18 Active 10 ml FLUSH ASDIRECTED PRN Sodium Chloride 0.9% [Saline Flush] Med 12/23/19 23:18 Active 2.5 ml FLUSH ASDIRECTED PRN Saline Lock Insert [OM.PC] Stat Oth 12/23/19 23:18 Ordered Medication Orders Sodium Chloride (Saline Flush) 10 ml FLUSH ASDIRECTED PRN PRN Reason: Keep Vein Open Sodium Chloride (Saline Flush) 2.5 ml FLUSH ASDIRECTED PRN PRN Reason: Keep Vein Open Labs: Laboratory Tests 12/23/19 12/23/19 12/23/19 Range/Units 00:00 23:45 23:45 WBC 9.74 (4.0-11.0) K/uL RBC 4.25 L (4.30-5.90) M/uL Hgb 13.4 (12.0-16.0) g/dL Hct 39.0 (36.0-46.0) % MCV 91.8 (80.0-98.0) fL MCH 31.5 (27.0-32.0) pg MCHC 34.4 (31.0-37.0) g/dL RDW Std Deviation 42.1 (28.0-62.0) fl RDW Coeff of Pema 13 (11.0-15.0) % Plt Count 291 (150-400) K/uL MPV 9.40 (7.40-12.00) fL Neut % (Auto) 77.3 (48.0-80.0) % Lymph % (Auto) 17.5 (16.0-40.0) % [place] % (Auto) 4.8 (0.0-15.0) % Eos % (Auto) 0.3 (0.0-7.0) % Baso % (Auto) 0.1 (0.0-1.5) % Neut # (Auto) 7.5 H (1.4-5.7) K/uL Lymph # (Auto) 1.7 (0.6-2.4) K/uL [place] # (Auto) 0.5 (0.0-0.8) K/uL Eos # (Auto) 0.0 (0.0-0.7) K/uL Baso # (Auto) 0.0 (0.0-0.1) K/uL D-Dimer, Quantitative 0.89 H (0.0-0.50) mg/L FEU Sodium (136-145) mmol/L Potassium (3.5-5.1) mmol/L Chloride (98-107) mmol/L Carbon Dioxide (21.0-32.0) mmol/L BUN (7.0-18.0) mg/dL Creatinine (0.6-1.0) mg/dL Est Cr Clr Drug Dosing mL/min Estimated GFR (MDRD) ml/min Glucose (74-106) mg/dL Calcium (8.5-10.1) mg/dL Total Bilirubin (0.2-1.0) mg/dL AST (15-37) IU/L ALT (14-63) IU/L Alkaline Phosphatase (46-116) U/L Total Protein (6.4-8.2) g/dL Albumin (3.4-5.0) g/dL Globulin (2.6-4.0) g/dL Albumin/Globulin Ratio (0.9-1.6) Lipase (73-393) U/L HCG, Qual NEGATIVE (NEG) Urine Color Urine Appearance Urine pH (5.0-8.0) Ur Specific [place] (1.001-1.035) Urine Protein (NEGATIVE) mg/dL Urine Glucose (UA) (NEGATIVE) mg/dL Urine Ketones (NEGATIVE) mg/dL Urine Occult Blood (NEGATIVE) Urine Nitrite (NEGATIVE) Urine Bilirubin (NEGATIVE) Urine Urobilinogen (<2.0) EU/dL Ur Leukocyte Esterase (NEGATIVE) Urine RBC (0-2/HPF) Urine WBC (0-5/HPF) Ur Epithelial Cells (NONE-FEW) Urine Bacteria (NEGATIVE) 12/23/19 12/24/19 Range/Units 23:45 00:50 WBC (4.0-11.0) K/uL RBC (4.30-5.90) M/uL Hgb (12.0-16.0) g/dL Hct (36.0-46.0) % MCV (80.0-98.0) fL MCH (27.0-32.0) pg MCHC (31.0-37.0) g/dL RDW Std Deviation (28.0-62.0) fl RDW Coeff of Pema (11.0-15.0) % Plt Count (150-400) K/uL MPV (7.40-12.00) fL Neut % (Auto) (48.0-80.0) % Lymph % (Auto) (16.0-40.0) % [place] % (Auto) (0.0-15.0) % Eos % (Auto) (0.0-7.0) % Baso % (Auto) (0.0-1.5) % Neut # (Auto) (1.4-5.7) K/uL Lymph # (Auto) (0.6-2.4) K/uL [place] # (Auto) (0.0-0.8) K/uL Eos # (Auto) (0.0-0.7) K/uL Baso # (Auto) (0.0-0.1) K/uL D-Dimer, Quantitative (0.0-0.50) mg/L FEU Sodium 142 (136-145) mmol/L Potassium 3.3 L (3.5-5.1) mmol/L Chloride 107 (98-107) mmol/L Carbon Dioxide 25.6 (21.0-32.0) mmol/L BUN 9 (7.0-18.0) mg/dL Creatinine 0.8 (0.6-1.0) mg/dL Est Cr Clr Drug Dosing 95.25 mL/min Estimated GFR (MDRD) > 60.0 ml/min Glucose 92 (74-106) mg/dL Calcium 9.1 (8.5-10.1) mg/dL Total Bilirubin 0.8 (0.2-1.0) mg/dL AST 21 (15-37) IU/L ALT 38 (14-63) IU/L Alkaline Phosphatase 44 L (46-116) U/L Total Protein 7.4 (6.4-8.2) g/dL Albumin 3.8 (3.4-5.0) g/dL Globulin 3.6 (2.6-4.0) g/dL Albumin/Globulin Ratio 1.1 (0.9-1.6) Lipase 101 (73-393) U/L HCG, Qual (NEG) Urine Color YELLOW Urine Appearance CLEAR Urine pH 6.0 (5.0-8.0) Ur Specific [place] 1.020 (1.001-1.035) Urine Protein NEGATIVE (NEGATIVE) mg/dL Urine Glucose (UA) NEGATIVE (NEGATIVE) mg/dL Urine Ketones 40 H (NEGATIVE) mg/dL Urine Occult Blood TRACE-INTACT H (NEGATIVE) Urine Nitrite NEGATIVE (NEGATIVE) Urine Bilirubin NEGATIVE (NEGATIVE) Urine Urobilinogen 0.2 (<2.0) EU/dL Ur Leukocyte Esterase NEGATIVE (NEGATIVE) Urine RBC 1-3 (0-2/HPF) Urine WBC 0-1 (0-5/HPF) Ur Epithelial Cells RARE (NONE-FEW) Urine Bacteria RARE (NEGATIVE) Meds: Medications Generic Name Dose Route Start Last Admin Trade Name Freq PRN Reason Stop Dose Admin Sodium Chloride 10 ml 12/23/19 23:18 Saline Flush FLUSH ASDIRECTED PRN Keep Vein Open Sodium Chloride 2.5 ml 12/23/19 23:18 Saline Flush FLUSH ASDIRECTED PRN Keep Vein Open Discontinued Medications Generic Name Dose Route Start Last Admin Trade Name Freq PRN Reason Stop Dose Admin Ketorolac Tromethamine 15 mg 12/24/19 00:58 12/24/19 01:10 Toradol IVPUSH 12/24/19 00:59 15 mg ONETIME ONE Administration Ondansetron HCl 4 mg 12/24/19 00:58 12/24/19 01:09 Zofran IVPUSH 12/24/19 00:59 4 mg ONETIME ONE Administration Departure - Departure Time of Disposition: 01:13 Disposition: Home, Self-Care 01 Condition: Good Clinical Impression: Diarrhea, Abdominal pain - Discharge Information Instructions: Diarrhea, Adult Referrals: Joy Mora MD [Primary Care Provider] - Forms: ED Department Discharge Additional Instructions: [id number] Imodium recommended for area Nonsteroidal anti-inflammatory medicine such as ibuprofen or naproxen recommended for pain. He is rehydrated aggressively. [facility] [address], [place] [address] [facility] [address] [place] [id number] The following information is given to patients seen in the emergency department who are being discharged to home. This information is to outline your options for follow-up care. We provide all patients seen in our emergency department with a follow-up referral. The need for follow-up, as well as the timing and circumstances, are variable depending upon the specifics of your emergency department visit. If you don't have a primary care physician on staff, we will provide you with a referral. We always advise you to contact your personal physician following an emergency department visit to inform them of the circumstance of the visit and for follow-up with them and/or the need for any referrals to a consulting specialist. The emergency department will also refer you to a specialist when appropriate. This referral assures that you have the opportunity for follow-up care with a specialist. All of these measure are taken in an effort to provide you with optimal care, which includes your follow-up. Under all circumstances we always encourage you to contact your private physician who remains a resource for coordinating your care. When calling for follow-up care, please make the office aware that this follow-up is from your recent emergency room visit. If for any reason you are refused follow-up, please contact the [facility] Emergency Department at and asked to speak to the emergency department charge nurse. Sepsis Event Note (ED) - Evaluation Sepsis Screening Result: No Definite Risk - Focused Exam Vital Signs: Vital Signs Temp Pulse Resp BP Pulse Ox 12/24/19 00:38 101 H 14 111/59 L 98 12/23/19 23:04 96.8 F L 109 H 20 134/85 99 - My Orders Last 24 Hours: My Active Orders 12/23/19 23:18 Sodium Chloride 0.9% [Saline Flush] 10 ml FLUSH ASDIRECTED PRN Sodium Chloride 0.9% [Saline Flush] 2.5 ml FLUSH ASDIRECTED PRN Saline Lock Insert [OM.PC] Stat 12/23/19 23:20 OCCULT BLOOD DIAGNOSTIC [OP] Stat - Assessment/Plan Last 24 Hours: My Active Orders 12/23/19 23:18 Sodium Chloride 0.9% [Saline Flush] 10 ml FLUSH ASDIRECTED PRN Sodium Chloride 0.9% [Saline Flush] 2.5 ml FLUSH ASDIRECTED PRN Saline Lock Insert [OM.PC] Stat 12/23/19 23:20 OCCULT BLOOD DIAGNOSTIC [OP] Stat
[2019-12-24 00:14] LABS: BLOOD UREA NITROGEN,BUN 9 mg/dL (7.0-18.0); CARBON DIOXIDE,CO2 25.6 mmol/L (21.0-32.0); CHLORIDE,CL 107 mmol/L (98-107); GLUCOSE RANDOM 92 mg/dL (74-106); LIPASE 101 U/L (73-393); POTASSIUM,K 3.3 mmol/L (3.5-5.1); SODIUM,NA 142 mmol/L (136-145)
[2019-12-24 00:38] VITALS: BP 111/59; PULSE 101
[2019-12-24] MEDS ORDERED: Ondansetron 4 MG/2 ML SDV IVPUSH ONE (00:58)
[2019-12-24] MEDS ORDERED: Ketorolac 30 MG/ML SDV IVPUSH ONE (00:58)
== END 2019-12-24 01:45 | disposition home or self-care (01) ==
LOC: MW.ED 22:56
DX: R10.12 Left upper quadrant pain (principal); R19.7 Diarrhea, unspecified; K21.9 Gastro-esophageal reflux disease without esophagitis; F41.9 Anxiety disorder, unspecified; F32.9 Major depressive disorder, single episode, unspecified; Z79.899 Other long term (current) drug therapy; Z88.8 Allergy status to other drugs, medicaments and biological substances; Z88.5 Allergy status to narcotic agent; Z91.041 Radiographic dye allergy status
CPT/HCPCS: 36415; 80053; 81001; 83690; 84703; 85025; 85379; 96374; 96375; 99284; J1885; J2405; 99282

== ENCOUNTER 2020-02-25 10:08 | Emergency (ER) | payer OTHER ==
[2020-02-25] MEDS ORDERED: Ondansetron 4 MG/2 ML SDV IVPUSH ONE (10:18)
[2020-02-25] MEDS ORDERED: Sodium Chloride 0.9% 1,000 ML IV ONE (10:18)
--- NOTE | 2020-02-25 10:26 | PCM.SN.2 ---
- Free Text/Narrative Note: 12-Lead ECG Interpretation Acquired: 10:20 AM Rhythm: Sinus rhythm Rate: 85 bpm [place]: Normal Intervals: Normal Ectopy: None RV Strain: No obvious RV strain pattern. ST Segments/T-Waves: No notable changes Acute Ischemic Changes: None apparent Interpretation: No STEMI
--- NOTE | 2020-02-25 10:41 | EDM.PDOC ---
ED HPI GENERAL MEDICAL PROBLEM - General Chief Complaint: General Stated Complaint: EMS ARRIVAL Time Seen by Provider: 02/25/20 10:21 Source of Information: Reports: Patient History Limitations: Reports: No Limitations - History of Present Illness INITIAL COMMENTS - FREE TEXT/NARRATIVE: HISTORY AND PHYSICAL: History of present illness: Patient is a 25-year-old female who presents to the emergency room after a panic attack and syncopal event. She states she woke up this morning and did not eat breakfast when she arrived at work she felt somewhat anxious. She started to feel palpitations and slightly dizzy which made her more anxious. She sat down and had a brief episode of syncope. She did not fall or hit her head. When she aroused she started to have a "panic attack" and a coworker had called EMS for evaluation. Upon arrival EMS states she was hyperventilating, full and had carpopedal spasms of the upper extremities. EMS administered Valium IV prior to arrival. Upon arrival she is vitally stable, not hyperventilating, appears as through she had been crying. A &O x 3. States she is currently nauseated and "hot". She had previously been on Zoloft and Xanax for her anxiety and depression, but stopped these medications 3 days ago (due to being unable to afford them). Patient denies any fever, chills, headache, change in vision, syncope or near syncope. Denies any chest pain, back pain, shortness of breath or cough. Denies any abdominal pain, nausea, vomiting, diarrhea, constipation or dysuria. Has not noted any blood in urine or stool. Patient has been eating and drinking appropriately. Review of systems: As per history of present illness and below otherwise all systems reviewed and negative. Past medical history: As per history of present illness and as reviewed below otherwise noncontributory. Surgical history: As per history of present illness and as reviewed below otherwise noncontributory. Social history: See social history for further information Family history: As per history of present illness and as reviewed below otherwise noncontributory. Physical exam: General: Well developed and well nourished. Alert and orientated x 3. Nontoxic in appearance and in no acute distress. Vital signs are stable and have been reviewed by me. Nursing notes were reviewed. HEENT: Atraumatic, normocephalic, pupils equal and reactive bilaterally, negative for conjunctival pallor or scleral icterus, mucous membranes moist, TMs normal bilaterally, throat clear, neck supple, nontender, trachea midline. No drooling or trismus noted. No meningeal signs. No hot potato voice noted. Lungs: Clear to auscultation, breath sounds equal bilaterally, chest nontender. Normal work of breathing, no accessory muscles used. Heart: S1S2, regular rate and rhythm without overt murmur Abdomen: Soft, nondistended, nontender. Negative for masses or hepatosplenomegaly. Negative for costovertebral tenderness. Pelvis: Stable nontender. Skin: Intact, warm, dry. No lesions or rashes noted. Hematologic: No petechiae or purpra. Mucosa appropriate color and normal nail bed color and refill. Extremities: Atraumatic, moves all extremities per self without difficulty or deficits, negative for cords or calf pain. Neurovascular unremarkable. Neuro: Awake, alert, oriented. Cranial nerves II through XII unremarkable. Cerebellum unremarkable. Motor and sensory unremarkable throughout. Exam nonfocal. Psychiatric: Mood and affect are appropriate. Normal thought process. Answering questions appropriately. Notes: Patient has been sleeping most of the ER visit. She has been vitally stable. She states she abruptly stopped her Zoloft and Xanax 3 days ago because she couldn't afford it. Had previously been on this consitantly for many months. This is lik mercedes the reason she doesn't feel well and had a breakthrough panic attack. Her carpopedal spasms have resolved. She states she is unable to void and does not want to wait to provide a urine sample as she has a friend who is waiting to give her a ride home. I have talked with the patient about today's findings, in addition to providing specific details for plan of care. Reassessment at the time of disposition demonstrates that the patient is in no acute distress. The patient is stable for discharge, counseling was provided and we discussed in great detail signs and symptoms that would prompt them to return to the Emergency Department. Medication, follow up and supportive care measures were reviewed and discussed. Voices understanding and is agreeable to plan of care. Denies any further questions or concerns at this time. Diagnostics: CBC, CMP, EKG, UA, TSH, HCGU Therapeutics: IV fluids, Zofran Prescription: Zoloft, Xanax (#15) Impression: Medication non-compliance Panic Attack Plan: 1. Today your lab work was within normal limits. 2. I have refilled your medications. You shouldn't abruptly stop any medications without consulting your primary care provider. This can cause you to feel unwell for days to weeks after stopping these type of medications. Avoid any alcohol, drugs or stimulants. 3. We encourage you to follow up with your primary care provider and/or recommended specialist in the next few days for re-evaluation and further care/management. If your symptoms should worsen, new symptoms develop or any of the signs and symptoms we discussed should arise please return to the emergency room or call 911 (if needed). Definitive disposition and diagnosis as appropriate pending reevaluation and review of above. chest Pain Score (Numeric/FACES): 5 - Related Data Allergies Allergy/AdvReac Type Severity Reaction Status Date / Time caffeine Allergy heart races Verified 02/25/20 10:12 hydrocodone Allergy Tachycardia Verified 02/25/20 10:12 prednisone Allergy Tachycardia Verified 02/25/20 10:12 contrast Allergy Hives Uncoded 02/25/20 10:12 Home Meds: Home Meds Sertraline [Zoloft] 50 mg PO DAILY 12/21/19 [History] ALPRAZolam [Xanax] 0.5 mg PO BID PRN #15 tablet 02/25/20 [Rx] ALPRAZolam [Xanax] 6.25 mg PO DAILY 02/25/20 [History] Non-Formulary Medication [NF Drug] 1 each PO DAILY 02/25/20 [History] Sertraline HCl [Zoloft] 50 mg PO DAILY 30 Days #30 tablet 02/25/20 [Rx] Past Medical History - Past Health History Medical/Surgical History: Denies Medical/Surgical History HEENT History: Reports: None Cardiovascular History: Reports: None Other Cardiovascular History: chest pains Respiratory History: Reports: None Gastrointestinal History: Reports: GERD Other Gastrointestinal History: rt upper quad pain Genitourinary History: Reports: None 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 Musculoskeletal History: Reports: None Neurological History: Reports: None Psychiatric History: Reports: Anxiety, Depression, Suicidal Ideation Endocrine/Metabolic History: Reports: None Hematologic History: Reports: None Immunologic History: Reports: None Oncologic (Cancer) History: Reports: None Dermatologic History: Reports: None - Infectious Disease History Infectious Disease History: Reports: None - Past Surgical History Head Surgeries/Procedures: Reports: None HEENT Surgical History: Reports: Oral Surgery Other HEENT Surgeries/Procedures: dental surgery Cardiovascular Surgical History: Reports: None Respiratory Surgical History: Reports: None GI Surgical History: Reports: Cholecystectomy, Colonoscopy, EGD Female Surgical History: Reports: None Endocrine Surgical History: Reports: None Neurological Surgical History: Reports: None Musculoskeletal Surgical History: Reports: None Oncologic Surgical History: Reports: None Dermatological Surgical History: Reports: None Social & Family History - Family History Family Medical History: No Pertinent Family History HEENT: Reports: None Cardiac: Reports: None - Tobacco Use Tobacco Use Status *Q: Never Tobacco User - Caffeine Use Caffeine Use: Reports: None - Recreational Drug Use Recreational Drug Use: Yes Recreational Drug Type: Reports: Marijuana/Hashish Recreational Drug Use Frequency: Weekly ED ROS GENERAL - Review of Systems Review Of Systems: Comprehensive ROS is negative, except as noted in HPI. ED EXAM, GENERAL - Physical Exam Exam: See Below (See dictation) Course - Vital Signs Last Recorded V/S: Last Vital Signs Temp 98.5 F 02/25/20 10:14 Pulse 108 H 02/25/20 10:14 Resp 20 02/25/20 10:14 BP 110/51 L 02/25/20 10:14 Pulse Ox 100 02/25/20 10:14 - Orders/Labs/Meds Orders: Active Orders 24 hr Category Date Time Status EKG 12 Lead [EKG Documentation Completion] [RC] STAT Care 02/25/20 10:11 Active HCG QUALITATIVE,URINE [URCHEM] Stat Lab 02/25/20 10:18 Ordered UA RFX JOSE JUAN AND CULT IF INDIC [URIN] Stat Lab 02/25/20 10:18 Ordered Labs: Laboratory Tests 02/25/20 02/25/20 Range/Units 10:35 10:35 WBC 12.83 H (4.0-11.0) K/uL RBC 4.84 (4.30-5.90) M/uL Hgb 15.0 (12.0-16.0) g/dL Hct 43.5 (36.0-46.0) % MCV 89.9 (80.0-98.0) fL MCH 31.0 (27.0-32.0) pg MCHC 34.5 (31.0-37.0) g/dL RDW Std Deviation 42.4 (28.0-62.0) fl RDW Coeff of Pema 13 (11.0-15.0) % Plt Count 327 (150-400) K/uL MPV 9.20 (7.40-12.00) fL Neut % (Auto) 89.5 H (48.0-80.0) % Lymph % (Auto) 7.6 L (16.0-40.0) % Gaston % (Auto) 2.7 (0.0-15.0) % Eos % (Auto) 0.0 (0.0-7.0) % Baso % (Auto) 0.2 (0.0-1.5) % Neut # (Auto) 11.5 H (1.4-5.7) K/uL Lymph # (Auto) 1.0 (0.6-2.4) K/uL Gaston # (Auto) 0.3 (0.0-0.8) K/uL Eos # (Auto) 0.0 (0.0-0.7) K/uL Baso # (Auto) 0.0 (0.0-0.1) K/uL Nucleated RBC % 0.0 /100WBC Nucleated RBCs # 0 K/uL Sodium 141 (136-145) mmol/L Potassium 3.6 (3.5-5.1) mmol/L Chloride 103 (98-107) mmol/L Carbon Dioxide 25.5 (21.0-32.0) mmol/L BUN 10 (7.0-18.0) mg/dL Creatinine 0.6 (0.6-1.0) mg/dL Est Cr Clr Drug Dosing 131.22 mL/min Estimated GFR (MDRD) > 60.0 ml/min Glucose 87 (74-106) mg/dL Calcium 8.6 (8.5-10.1) mg/dL Total Bilirubin 0.6 (0.2-1.0) mg/dL AST 21 (15-37) IU/L ALT 31 (14-63) IU/L Alkaline Phosphatase 53 (46-116) U/L Total Protein 7.8 (6.4-8.2) g/dL Albumin 4.1 (3.4-5.0) g/dL Globulin 3.7 (2.6-4.0) g/dL Albumin/Globulin Ratio 1.1 (0.9-1.6) TSH 3rd Generation 0.73 (0.36-3.74) uIU/mL Meds: Medications Discontinued Medications Generic Name Dose Route Start Last Admin Trade Name Freq PRN Reason Stop Dose Admin Sodium Chloride 1,000 mls @ 999 mls/hr 02/25/20 10:18 02/25/20 10:32 Normal Saline IV 02/25/20 11:18 999 mls/hr STAT ONE Administration Ondansetron HCl 4 mg 02/25/20 10:18 02/25/20 10:32 Zofran IVPUSH 02/25/20 10:19 4 mg ONETIME ONE Administration Departure - Departure Time of Disposition: 11:59 Disposition: Home, Self-Care 01 Clinical Impression: Noncompliance with medication regimen, Panic attack - Discharge Information Prescriptions: ALPRAZolam [Xanax] 0.5 mg PO BID PRN #15 tablet PRN Reason: Anxiety Sertraline HCl [Zoloft] 50 mg PO DAILY 30 Days #30 tablet Instructions: Panic Attack, [id number] Forms: ED Department Discharge Additional Instructions: The following information is given to patients seen in the emergency department who are being discharged to home. This information is to outline your options for follow-up care. We provide all patients seen in our emergency department with a follow-up referral. The need for follow-up, as well as the timing and circumstances, are variable depending upon the specifics of your emergency department visit. If you don't have a primary care physician on staff, we will provide you with a referral. We always advise you to contact your personal physician following an emergency department visit to inform them of the circumstance of the visit and for follow-up with them and/or the need for any referrals to a consulting specialist. The emergency department will also refer you to a specialist when appropriate. This referral assures that you have the opportunity for follow-up care with a specialist. All of these measure are taken in an effort to provide you with optimal care, which includes your follow-up. Under all circumstances we always encourage you to contact your private physician who remains a resource for coordinating your care. When calling for follow-up care, please make the office aware that this follow-up is from your recent emergency room visit. If for any reason you are refused follow-up, please contact the Emergency Department at and asked to speak to the emergency department charge nurse. Primary Care [address] [place] [address] [facility] [address] [place] [id number] Thank you for choosing the [facility] emergency department in [place] for your medical needs today. It was a pleasure caring for you. Today you were seen in the emergency department for panic attack and passing out episode. 1. Today your lab work was within normal limits. 2. I have refilled your medications. You shouldn't abruptly stop any medications without consulting your primary care provider. This can cause you to feel unwell for days to weeks after stopping these type of medications. Avoid any alcohol, drugs or stimulants. 3. We encourage you to follow up with your primary care provider and/or recommended specialist in the next few days for re-evaluation and further care/management. If your symptoms should worsen, new symptoms develop or any of the signs and symptoms we discussed should arise please return to the emergency room or call 911 (if needed). Sepsis Event Note (ED) - Evaluation Sepsis Screening Result: No Definite Risk - Focused Exam Vital Signs: Vital Signs Temp Pulse Resp BP Pulse Ox 02/25/20 10:14 98.5 F 108 H 20 110/51 L 100 - My Orders Last 24 Hours: My Active Orders 02/25/20 10:18 HCG QUALITATIVE,URINE [URCHEM] Stat UA RFX JOSE JUAN AND CULT IF INDIC [URIN] Stat - Assessment/Plan Last 24 Hours: My Active Orders 02/25/20 10:18 HCG QUALITATIVE,URINE [URCHEM] Stat UA RFX JOSE JUAN AND CULT IF INDIC [URIN] Stat
[2020-02-25 11:09] LABS: BLOOD UREA NITROGEN,BUN 10 mg/dL (7.0-18.0); CARBON DIOXIDE,CO2 25.5 mmol/L (21.0-32.0); CHLORIDE,CL 103 mmol/L (98-107); GLUCOSE RANDOM 87 mg/dL (74-106); POTASSIUM,K 3.6 mmol/L (3.5-5.1); SODIUM,NA 141 mmol/L (136-145)
[2020-02-25 12:34] VITALS: BP 105/46; PULSE 99
== END 2020-02-25 12:16 | disposition home or self-care (01) ==
LOC: MW.ED 10:08
DX: F41.0 Panic disorder [episodic paroxysmal anxiety] (principal); Z91.14 Patient's other noncompliance with medication regimen; Z91.018 Allergy to other foods; Z88.5 Allergy status to narcotic agent; Z91.041 Radiographic dye allergy status; Z88.8 Allergy status to other drugs, medicaments and biological substances; Z79.899 Other long term (current) drug therapy
CPT/HCPCS: 36415; 80053; 84443; 85025; 93005; 96374; 99285; J2405; J7030; 93010; 99283

== ENCOUNTER 2020-04-01 23:27 | Emergency (ER) | payer OTHER ==
[2020-04-01] MEDS ORDERED: Dexamethasone 10 MG/ML SDV IM ONE (23:50)
[2020-04-01] MEDS ORDERED: Acetaminophen/Butalbital/Caffeine 325-50-40 MG Tab PO ONE (23:50)
--- NOTE | 2020-04-01 23:57 | EDM.PDOC ---
ED HPI GENERAL MEDICAL PROBLEM - General Chief Complaint: General Stated Complaint: HEADACHE Time Seen by Provider: 04/01/20 23:28 Source of Information: Reports: Patient History Limitations: Reports: No Limitations - History of Present Illness INITIAL COMMENTS - FREE TEXT/NARRATIVE: 25-year-old female no relevant past medical history presents for headache. Patient notes that she had a sore throat and went to urgent care clinic today and was swabbed for strep throat and put on amoxicillin. Swab results are not available yet. She notes that roughly 30 minutes prior to arrival she began to experience a right retro-orbital stabbing pain radiating down the side of her face and neck. No difficulty swallowing or breathing. No fevers. R rastafari/R neck Pain Score (Numeric/FACES): 8 - Related Data Allergies Allergy/AdvReac Type Severity Reaction Status Date / Time caffeine Allergy heart races Verified 04/01/20 23:31 hydrocodone Allergy Tachycardia Verified 04/01/20 23:31 prednisone Allergy Tachycardia Verified 04/01/20 23:31 contrast Allergy Hives Uncoded 02/25/20 10:12 Home Meds: Home Meds Sertraline [Zoloft] 50 mg PO DAILY 12/21/19 [History] ALPRAZolam [Xanax] 0.5 mg PO BID PRN #15 tablet 02/25/20 [Rx] Amoxicillin 04/01/20 [History] Past Medical History - Past Health History Medical/Surgical History: Denies Medical/Surgical History HEENT History: Reports: None Cardiovascular History: Reports: None Other Cardiovascular History: chest pains Respiratory History: Reports: None Gastrointestinal History: Reports: GERD Other Gastrointestinal History: rt upper quad pain Genitourinary History: Reports: None, Pyelonephritis, UTI, 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 Musculoskeletal History: Reports: None Neurological History: Reports: None Psychiatric History: Reports: Anxiety, Depression, Suicidal Ideation Endocrine/Metabolic History: Reports: None Hematologic History: Reports: None Immunologic History: Reports: None Oncologic (Cancer) History: Reports: None Dermatologic History: Reports: None - Infectious Disease History Infectious Disease History: Reports: None - Past Surgical History Head Surgeries/Procedures: Reports: None HEENT Surgical History: Reports: Oral Surgery Other HEENT Surgeries/Procedures: dental surgery Cardiovascular Surgical History: Reports: None Respiratory Surgical History: Reports: None GI Surgical History: Reports: Cholecystectomy, Colonoscopy, EGD Female Surgical History: Reports: None Endocrine Surgical History: Reports: None Neurological Surgical History: Reports: None Musculoskeletal Surgical History: Reports: None Oncologic Surgical History: Reports: None Dermatological Surgical History: Reports: None Social & Family History - Family History Family Medical History: No Pertinent Family History HEENT: Reports: None Cardiac: Reports: None - Caffeine Use Caffeine Use: Reports: Coffee - Recreational Drug Use Recreational Drug Type: Reports: Marijuana/Hashish ED ROS GENERAL - Review of Systems Review Of Systems: Comprehensive ROS is negative, except as noted in HPI. ED EXAM, GENERAL - Physical Exam Exam: See Below Exam Limited By: No Limitations General Appearance: Alert, WD/WN, No Apparent Distress Eye Exam: Bilateral Eye: EOMI, PERRL Ears: Normal External Exam Nose: Normal Inspection Throat/Mouth: Normal Inspection, Normal Lips, Normal Teeth, Normal Gums, Normal Oropharynx, Normal Voice, No Airway Compromise Head: Atraumatic, Normocephalic Neck: Normal Inspection, Non-Tender, Full Range of Motion Respiratory/Chest: No Respiratory Distress, Lungs Clear, Normal Breath Sounds, No Accessory Muscle Use Cardiovascular: Normal Peripheral Pulses, Regular Rate, Rhythm Back Exam: Normal Inspection Extremities: Normal Inspection Neurological: Alert, Normal Gait Psychiatric: Normal Affect, Normal Mood Skin Exam: Warm, Dry, Intact, Normal Color Course - Vital Signs Last Recorded V/S: Last Vital Signs Temp 97.3 F 04/02/20 00:03 Pulse 96 04/02/20 00:03 Resp 16 04/02/20 00:03 BP 116/71 04/02/20 00:03 Pulse Ox 98 04/02/20 00:03 - Orders/Labs/Meds Meds: Medications Discontinued Medications Generic Name Dose Route Start Last Admin Trade Name Sandovalq PRN Reason Stop Dose Admin Acetaminophen/Butalbital/Caffeine 1 tab 04/01/20 23:50 04/01/20 23:59 Fioricet 325-50-40 Mg PO 04/01/20 23:51 1 tab ONETIME ONE Administration Dexamethasone 8 mg 04/01/20 23:50 04/02/20 00:00 Decadron IM 04/01/20 23:51 8 mg ONETIME ONE Administration - Re-Assessments/Exams Free Text/Narrative Re-Assessment/Exam: 04/01/20 23:56 Low suspicion of clinically significant pathology. Patient well-appearing. Will give Decadron and Fioricet for headache. We will follow up reassessment and disposition. 04/02/20 00:17 Patient states headache was initially feeling better but starting to come back a bit. She does explain feeling hot and some weakness in her left upper extremity after getting the Decadron injection. Return precautions were discussed at length. Departure - Departure Time of Disposition: 00:18 Disposition: Home, Self-Care 01 Condition: Good Clinical Impression: URI (upper respiratory infection) Qualifiers: URI type: unspecified viral URI Qualified Code(s): J06.9 - Acute upper respiratory infection, unspecified Headache Qualifiers: Headache type: unspecified Headache chronicity pattern: acute headache Intractability: not intractable Qualified Code(s): R51.9 - Headache, unspecified - Discharge Information Instructions: Upper Respiratory Infection, Adult, [id number] Referrals: PCP,None [Primary Care Provider] - Forms: ED Department Discharge Additional Instructions: The following information is given to patients seen in the emergency department who are being discharged to home. This information is to outline your options for follow-up care. We provide all patients seen in our emergency department with a follow-up referral. The need for follow-up, as well as the timing and circumstances, are variable depending upon the specifics of your emergency department visit. If you don't have a primary care physician on staff, we will provide you with a referral. We always advise you to contact your personal physician following an emergency department visit to inform them of the circumstance of the visit and for follow-up with them and/or the need for any referrals to a consulting specialist. The emergency department will also refer you to a specialist when appropriate. This referral assures that you have the opportunity for follow-up care with a specialist. All of these measure are taken in an effort to provide you with optimal care, which includes your follow-up. Under all circumstances we always encourage you to contact your private physician who remains a resource for coordinating your care. When calling for follow-up care, please make the office aware that this follow-up is from your recent emergency room visit. If for any reason you are refused follow-up, please contact the [facility] Emergency Department at and asked to speak to the emergency department charge nurse. Please follow up with your primary care physician. If you do not have a primary care physician, see below: [facility] [address] [place] [address] My [facility] [address] [place] [address] Sepsis Event Note (ED) - Evaluation Sepsis Screening Result: No Definite Risk - Focused Exam Vital Signs: Vital Signs Temp Pulse Resp BP Pulse Ox 04/02/20 00:03 97.3 F 96 16 116/71 98 04/01/20 23:35 97.8 F 108 H 18 120/75 97
[2020-04-02 00:04] VITALS: BP 116/71; PULSE 96
== END 2020-04-02 00:19 | disposition home or self-care (01) ==
LOC: MW.ED 23:27
DX: J06.9 Acute upper respiratory infection, unspecified (principal); F41.9 Anxiety disorder, unspecified; F32.9 Major depressive disorder, single episode, unspecified; Z88.5 Allergy status to narcotic agent; Z88.8 Allergy status to other drugs, medicaments and biological substances; Z91.018 Allergy to other foods; Z91.041 Radiographic dye allergy status; Z79.899 Other long term (current) drug therapy
CPT/HCPCS: 96372; 99283; A9270; J1100

== ENCOUNTER 2020-06-13 08:56 | Day surgery (SDC) | payer OTHER ==
[2020-06-10 11:55] LABS: BLOOD UREA NITROGEN,BUN 13 mg/dL (7.0-18.0); CARBON DIOXIDE,CO2 24.5 mmol/L (21.0-32.0); CHLORIDE,CL 104 mmol/L (98-107); GLUCOSE RANDOM 87 mg/dL (74-106); POTASSIUM,K 4.3 mmol/L (3.5-5.1); SODIUM,NA 137 mmol/L (136-145)
[~2020-06-13 08:56] MED LIST: Lactated Ringers 1,000 ML IV SCH; Sodium Chloride 0.9% 10 ML SDV IV PRN; Sodium Chloride 0.9% 10 ML Syringe FLUSH PRN; Sodium Chloride 0.9% 2.5 ML Syringe FLUSH PRN
[2020-06-13] MEDS ORDERED: Dexamethasone 4 MG/ML 5 ML MDV ONE (09:33)
[2020-06-13] MEDS ORDERED: Midazolam 1 MG/ML 2 ML SDV ONE (09:33)
[2020-06-13] MEDS ORDERED: Propofol 200 MG/20 ML SDV ONE (09:33)
[2020-06-13] MEDS ORDERED: fentaNYL 250 MCG/5 ML SDV ONE (09:33)
[2020-06-13] MEDS ORDERED: Ondansetron 4 MG/2 ML SDV ONE (09:33)
[2020-06-13] MEDS ORDERED: Lidocaine 2% 5 ML SDV ONE (09:33)
[2020-06-13] MEDS ORDERED: Rocuronium Bromide 50 MG/5 ML Syringe ONE (09:33)
--- NOTE | 2020-06-13 10:07 | PCM.PREANE ---
Preanesthetic Assessment - Anesthesia/Transfusion/Family Hx Anesthesia History: Prior Anesthesia Without Reaction Family History of Anesthesia Reaction: No Transfusion History: No Prior Transfusion(s) Intubation History: Unknown - Review of Systems General: No Symptoms Pulmonary: No Symptoms Cardiovascular: No Symptoms Gastrointestinal: No Symptoms Neurological: No Symptoms Other: Reports: None - Physical Assessment Vital Signs: Last Vital Signs Temp 36.5 C 06/13/20 09:08 Pulse 98 06/13/20 09:08 Resp 16 06/13/20 09:08 BP 119/55 L 06/13/20 09:08 Pulse Ox 99 06/13/20 09:08 Height: 5 ft 4 in Weight: 70.307 kg ASA Class: 2 Mental Status: Alert & Oriented x3 Airway Class: Mallampati = 1 Dentition: Reports: Normal Dentition Thyro-Mental Finger Breadths: 3 Mouth Opening Finger Breadths: 3 ROM/Head Extension: Full Lungs: Clear to Auscultation, Normal Respiratory Effort Cardiovascular: Regular Rate, Regular Rhythm - Lab Values: Laboratory Last Values WBC 7.54 K/uL (4.0-11.0) 06/10/20 11:17 RBC 4.82 M/uL (4.30-5.90) 06/10/20 11:17 Hgb 14.9 g/dL (12.0-16.0) 06/10/20 11:17 Hct 43.8 % (36.0-46.0) 06/10/20 11:17 MCV 90.9 fL (80.0-98.0) 06/10/20 11:17 MCH 30.9 pg (27.0-32.0) 06/10/20 11:17 MCHC 34.0 g/dL (31.0-37.0) 06/10/20 11:17 RDW Std Deviation 42.9 fl (28.0-62.0) 06/10/20 11:17 RDW Coeff of Pema 13 % (11.0-15.0) 06/10/20 11:17 Plt Count 307 K/uL (150-400) 06/10/20 11:17 MPV 9.40 fL (7.40-12.00) 06/10/20 11:17 Nucleated RBC % 0.0 /100WBC 06/10/20 11:17 Nucleated RBCs # 0 K/uL 06/10/20 11:17 Sodium 137 mmol/L (136-145) 06/10/20 11:17 Potassium 4.3 mmol/L (3.5-5.1) 06/10/20 11:17 Chloride 104 mmol/L (98-107) 06/10/20 11:17 Carbon Dioxide 24.5 mmol/L (21.0-32.0) 06/10/20 11:17 BUN 13 mg/dL (7.0-18.0) 06/10/20 11:17 Creatinine 0.8 mg/dL (0.6-1.0) 06/10/20 11:17 Est Cr Clr Drug Dosing 94.44 mL/min 06/10/20 11:17 Estimated GFR (MDRD) > 60.0 ml/min 06/10/20 11:17 Glucose 87 mg/dL (74-106) 06/10/20 11:17 Calcium 8.9 mg/dL (8.5-10.1) 06/10/20 11:17 HCG, Qual NEGATIVE (NEG) 06/10/20 11:17 Blood Type B POSITIVE 06/10/20 11:21 Antibody Screen NEGATIVE 06/10/20 11:21 - Allergies Allergies/Adverse Reactions: Allergies Allergy/AdvReac Type Severity Reaction Status Date / Time caffeine Allergy heart races Verified 06/13/20 09:42 hydrocodone Allergy Tachycardia Verified 06/13/20 09:42 prednisone Allergy Chest Pain Verified 06/13/20 09:42 contrast Allergy Hives Uncoded 06/13/20 09:42 - Blood Blood Available: No - Anesthesia Plan Pre-Op Medication Ordered: None - Acknowledgements Anesthesia Type Planned: General Anesthesia Pt an Appropriate Candidate for the Planned Anesthesia: Yes Alternatives and Risks of Anesthesia Discussed w Pt/Guardian: Yes Pt/Guardian Understands and Agrees with Anesthesia Plan: Yes PreAnesthesia Questionnaire - Past Health History Medical/Surgical History: Denies Medical/Surgical History HEENT History: Reports: None Cardiovascular History: Reports: None Other Cardiovascular History: tachycardia episodes few times per wek lasting up to 1/2 hour related to anxiety or thyroid gland or both,chest pains Respiratory History: Reports: None Gastrointestinal History: Reports: GERD Other Gastrointestinal History: rt upper quad pain Genitourinary History: Reports: UTI, Recurrent Other Genitourinary History: frequent UTI in past- not recently 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 Musculoskeletal History: Reports: None Neurological History: Reports: None Psychiatric History: Reports: Anxiety, Panic Attack Endocrine/Metabolic History: Reports: Hyperthyroidism Other Endocrine/Metabolic History: has Subclinical hyperthyroidism- no treatment Hematologic History: Reports: None Immunologic History: Reports: None Oncologic (Cancer) History: Reports: None Dermatologic History: Reports: Eczema Other Dermatologic History: has seasonal ecxema - Infectious Disease History Infectious Disease History: Reports: None - Past Surgical History Head Surgeries/Procedures: Reports: None HEENT Surgical History: Reports: Oral Surgery Other HEENT Surgeries/Procedures: tooth extraction Cardiovascular Surgical History: Reports: None Respiratory Surgical History: Reports: None GI Surgical History: Reports: Cholecystectomy, Colonoscopy, EGD Female Surgical History: Reports: None Endocrine Surgical History: Reports: None Neurological Surgical History: Reports: None Musculoskeletal Surgical History: Reports: None Oncologic Surgical History: Reports: None Dermatological Surgical History: Reports: None - SUBSTANCE USE Tobacco Use Status *Q: Never Tobacco User Recreational Drug Use History: Yes Recreational Drug Type: Reports: Marijuana/Hashish - HOME MEDS Home Medications: Home Meds Sertraline [Zoloft] 50 mg PO DAILY 12/21/19 [History] ALPRAZolam [Xanax] 0.5 mg PO TID PRN 06/07/20 [History] Doxycycline Hyclate 100 mg PO BID 06/07/20 [History] traMADol HCl [Tramadol HCl] 50 mg PO TID PRN 06/07/20 [History] - CURRENT (IN HOUSE) MEDS Current Meds: Current Medications Lactated Ringer's (Ringers, Lactated) 1,000 mls @ 125 mls/hr IV ASDIRECTED MARIANA Last Admin: 06/13/20 09:15 Dose: 125 mls/hr Documented by: Sodium Chloride (Saline Flush) 2.5 ml FLUSH ASDIRECTED PRN PRN Reason: Keep Vein Open Sodium Chloride (Normal Saline) 10 ml IV ASDIRECTED PRN PRN Reason: IV Use Discontinued Medications Dexamethasone (Dexamethasone) Confirm Administered Dose 20 mg .ROUTE .STK-MED ONE Stop: 06/13/20 09:34 Fentanyl (Sublimaze) Confirm Administered Dose 250 mcg .ROUTE .STK-MED ONE Stop: 06/13/20 09:34 Lidocaine (Xylocaine-Mpf 2%) Confirm Administered Dose 5 ml .ROUTE .STK-MED ONE Stop: 06/13/20 09:34 Midazolam HCl (Versed 1 Mg/Ml) Confirm Administered Dose 2 mg .ROUTE .STGenemation-MED ONE Stop: 06/13/20 09:34 Ondansetron HCl (Zofran) Confirm Administered Dose 4 mg .ROUTE .Spoqa-MED ONE Stop: 06/13/20 09:34 Propofol (Diprivan 20 Ml) Confirm Administered Dose 400 mg .ROUTE .STGenemation-MED ONE Stop: 06/13/20 09:34 Rocuronium [place] (Rocuronium [place]) Confirm Administered Dose 50 mg .ROUTE .STSilverpopMED ONE Stop: 06/13/20 09:34
[2020-06-13] MEDS ORDERED: Octyl 2-Cyanoacrylate 1 Tube ONE (11:09)
[2020-06-13] MEDS ORDERED: HYDROmorphone 2 MG/ML Syringe ONE (11:42)
[2020-06-13] MEDS ORDERED: Glycopyrrolate 0.2 MG/ML SDV ONE (11:49)
[2020-06-13] MEDS ORDERED: Sugammadex Sodium 200 MG/2 ML VIAL ONE (11:50)
[2020-06-13] MEDS ORDERED: fentaNYL 100 MCG/2 ML SDV IVPUSH PRN (12:00)
--- NOTE | 2020-06-13 12:17 | PCM.OPNOTE ---
- General Post-Op/Procedure Note Date of Surgery/Procedure: 06/13/20 Operative Procedure(s): Dignostic Laparascopy Pre Op Diagnosis: Pelvic pain Post-Op Diagnosis: Same Anesthesia Technique: General ET Tube Primary Surgeon: Aba Magallon EBL in mLs: 50 Complications: None Condition: Good
--- NOTE | 2020-06-13 12:17 | PCM.DCSUM1 ---
Discharge Summary - Hospital Course Diagnosis: Stroke: No - Discharge Data Discharge Date: 06/13/20 Discharge Disposition: Home, Self-Care 01 Condition: Good - Referral to Home Health Primary Care Physician: Aba Magallon MD - Patient Summary/Data Operative Procedure(s) Performed: Dignostic Laparascopy - Patient Instructions Diet: Usual Diet as Tolerated Activity: As Tolerated Driving: Do Not Drive Showering/Bathing: May Shower - Discharge Plan Home Medications: Home Meds Sertraline [Zoloft] 50 mg PO DAILY 12/21/19 [History] ALPRAZolam [Xanax] 0.5 mg PO TID PRN 06/07/20 [History] Doxycycline Hyclate 100 mg PO BID 06/07/20 [History] traMADol HCl [Tramadol HCl] 50 mg PO TID PRN 06/07/20 [History] - Discharge Summary/Plan Comment DC Time >30 min.: Yes - General Info Date of Service: 06/13/20 Functional Status: Reports: Pain Controlled - Review of Systems General: Reports: No Symptoms HEENT: Reports: No Symptoms Pulmonary: Reports: No Symptoms Cardiovascular: Reports: No Symptoms Gastrointestinal: Reports: No Symptoms Genitourinary: Reports: No Symptoms Musculoskeletal: Reports: No Symptoms Skin: Reports: No Symptoms Neurological: Reports: No Symptoms Psychiatric: Reports: No Symptoms - Patient Data Vitals - Most Recent: Last Vital Signs Temp 36.5 C 06/13/20 09:08 Pulse 98 06/13/20 09:08 Resp 16 06/13/20 09:08 BP 119/55 L 06/13/20 09:08 Pulse Ox 99 06/13/20 09:08 Weight - Most Recent: 70.307 kg Med Orders - Current: Current Medications Fentanyl (Sublimaze) 50 mcg IVPUSH Q5M PRN PRN Reason: Pain (severe 7-10) Stop: 06/14/20 12:01 Lactated Ringer's (Ringers, Lactated) 1,000 mls @ 125 mls/hr IV ASDIRECTED MARIANA Last Admin: 06/13/20 09:15 Dose: 125 mls/hr Documented by: Sodium Chloride (Saline Flush) 2.5 ml FLUSH ASDIRECTED PRN PRN Reason: Keep Vein Open Sodium Chloride (Normal Saline) 10 ml IV ASDIRECTED PRN PRN Reason: IV Use Discontinued Medications Dexamethasone (Dexamethasone) Confirm Administered Dose 20 mg .ROUTE .STK-MED ONE Stop: 06/13/20 09:34 Fentanyl (Sublimaze) Confirm Administered Dose 250 mcg .ROUTE .STK-MED ONE Stop: 06/13/20 09:34 Glycopyrrolate (Robinul) Confirm Administered Dose 0.4 mg .ROUTE .STK-MED ONE Stop: 06/13/20 11:50 Hydromorphone HCl (Dilaudid) Confirm Administered Dose 2 mg .ROUTE .STK-MED ONE Stop: 06/13/20 11:43 Lidocaine (Xylocaine-Mpf 2%) Confirm Administered Dose 5 ml .ROUTE .STK-MED ONE Stop: 06/13/20 09:34 Midazolam HCl (Versed 1 Mg/Ml) Confirm Administered Dose 2 mg .ROUTE .STK-MED ONE Stop: 06/13/20 09:34 Octyl Cyanoacrylate (Dermabond Advance) Confirm Administered Dose 1 applic .ROUTE .STK-MED ONE Stop: 06/13/20 11:10 Ondansetron HCl (Zofran) Confirm Administered Dose 4 mg .ROUTE .STK-MED ONE Stop: 06/13/20 09:34 Propofol (Diprivan 20 Ml) Confirm Administered Dose 400 mg .ROUTE .STK-MED ONE Stop: 06/13/20 09:34 Rocuronium [place] (Rocuronium [place]) Confirm Administered Dose 50 mg .ROUTE .STK-MED ONE Stop: 06/13/20 09:34 Sugammadex Sodium ([place]rid[place]) Confirm Administered Dose 200 mg .ROUTE .STK-MED ONE Stop: 06/13/20 11:51 - Exam General: Reports: Alert, Oriented HEENT: Reports: Pupils Equal, Pupils Reactive, EOMI, Mucous Membr. Moist/[place] Neck: Reports: Supple Lungs: Reports: Clear to Auscultation, Normal Respiratory Effort Cardiovascular: Reports: Regular Rate, Regular Rhythm GI/Abdominal Exam: Normal Bowel Sounds, Soft, Non-Tender, No Organomegaly, No Distention, No Abnormal Bruit, No Mass, Pelvis Stable (Female) Exam: Normal External Exam, Normal Speculum Exam, Normal Bimanual Exam Rectal (Female) Exam: Normal Exam, Normal Rectal Tone Back Exam: Reports: Normal Inspection, Full Range of Motion Extremities: Normal Inspection, Normal Range of Motion, Non-Tender, No Pedal Edema, Normal Capillary Refill Skin: Reports: Warm, Dry, Intact Wound/Incisions: Reports: Healing Well Neurological: Reports: No New Focal Deficit Psy/Mental Status: Reports: Alert, Normal Affect, Normal Mood
--- NOTE | 2020-06-13 12:45 | PCM.POSTAN ---
POST ANESTHESIA ASSESSMENT - MENTAL STATUS Mental Status: Alert, Oriented - VITAL SIGNS Vital Signs: Last Vital Signs Temp 36.5 C 06/13/20 09:08 Pulse 120 H 06/13/20 12:41 Resp 18 06/13/20 12:41 BP 116/63 06/13/20 12:41 Pulse Ox 100 06/13/20 12:41 - RESPIRATORY Respiratory Status: Respiratory Rate WNL, Airway Patent, O2 Saturation Stable - CARDIOVASCULAR CV Status: Pulse Rate WNL, Blood Pressure Stable - GASTROINTESTINAL GI Status: No Symptoms - PAIN Pain Score: 5 - POST OP HYDRATION Hydration Status: Adequate & Stable
[2020-06-13 13:07] VITALS: PULSE 98
--- NOTE | 2020-06-13 13:45 | PCM48HPAN ---
Post Anesthesia Note - EVALUATION WITHIN 48HRS OF ANESTHETIC Vital Signs in Normal Range: Yes Patient Participated in Evaluation: Yes Respiratory Function Stable: Yes Airway Patent: Yes Cardiovascular Function Stable: Yes Hydration Status Stable: Yes Pain Control Satisfactory: Yes Nausea and Vomiting Control Satisfactory: Yes Vital Signs: Last Vital Signs Temp 36.6 C 06/13/20 12:50 Pulse 98 06/13/20 13:05 Resp 14 06/13/20 13:20 BP 117/55 L 06/13/20 13:20 Pulse Ox 100 06/13/20 13:20 - COMMENTS/OBSERVATIONS Free Text/Narrative:: No anesthesia problems
[2020-06-13 13:55] VITALS: BP 110/54
--- NOTE | 2020-06-13 14:54 | OR ---
SURGEON: Aba Magallon MD DATE OF PROCEDURE: 06/13/2020 PREOPERATIVE DIAGNOSIS: Pelvic mass, pelvic pain. POSTOPERATIVE DIAGNOSIS: Pelvic adhesion from endometriosis involving the pelvis and both of the ovaries. Adhesion of both of the ovaries to the back of the uterus and the sigmoid colon. OPERATION PERFORMED: Multiple puncture diagnostic laparoscopy, lysis of adhesion, peritoneal lavage. PRIMARY SURGEON: Aba Magallon MD BUILDING PERFORMANCE SPECIALIST: OR tech. ANESTHESIA: General endotracheal intubation, Rosalia Childs and Dr. Woods. ESTIMATED BLOOD LOSS: Less than 100 mL. COMPLICATIONS: None. FINDINGS: The patient had adhesion of both ovaries to the back of the uterus and to the sigmoid colon and to the cul-de-sac from endometriosis. There is small hydrosalpinx on the right tube. The left tube looked reasonably normal and there is no adhesion around it at least from the outside. INDICATIONS FOR SURGERY: This patient is 25. She is referred for pelvic pain and pelvic mass by ultrasound. There was a possibility of tubo-ovarian abscess, possibility of endometriosis. PROCEDURE IN DETAIL: The patient was brought to the OR, properly identified. After adequate level of anesthesia, the patient placed in lithotomy position, prepped and draped in sterile fashion as usual, and a small incision done beneath the umbilicus. The Veress needle was placed in the peritoneal cavity and that cavity insufflated with 3.5 L of carbon dioxide, and utilizing the Visiport technique, the 5 mm trocar was placed into place. Once we were in the peritoneal cavity, and we had a good insertion, then a 10/12 trocar placed in the left iliac fossa and 5 mm trocar in the right iliac fossa. Findings, it shows pelvic adhesion of the both ovaries to the posterior aspect of the uterus and cul-de-sac and the sigmoid colon from adhesion. The right tube does have a small hydrosalpinx at the end and later on I drained that hydrosalpinx. The left tube looked reasonably well at least externally. After documenting these findings, using peritoneal lavage and hydrodissection, the ovaries were freed from the back of the uterus and the sigmoid colon without any problem and then thorough irrigation of the bed where the endometriosis was done with the extensive peritoneal lavage. The small hydrosalpinx in the right tube was drained by using the Harmonic scalpel and draining that area of the tube. Once that area was drained, then the tube was looking normal. Next step, after thorough irrigation, Avitene was placed in place to minimize pelvic adhesion in the raw area and the procedure ended. The instrument and hardware were retrieved from the abdomen and the vagina. The multiple laparoscopic incisions were closed in layers. Instrument and sponge count was correct. The patient tolerated the procedure well, went to recovery room in stable general condition. BOBBY / PAM /[id number]
== END 2020-06-13 13:54 | disposition home or self-care (01) ==
LOC: MW.SDS 08:56
PROVIDERS: ATTEND Obstetrics & Gynecology
DX: N70.11 Chronic salpingitis (principal); N73.6 Female pelvic peritoneal adhesions (postinfective); N80.1 Endometriosis of ovary; N80.3 Endometriosis of pelvic peritoneum; E05.90 Thyrotoxicosis, unspecified without thyrotoxic crisis or storm; Z88.8 Allergy status to other drugs, medicaments and biological substances; Z91.09 Other allergy status, other than to drugs and biological substances; Z91.041 Radiographic dye allergy status; Z79.899 Other long term (current) drug therapy; Z87.440 Personal history of urinary (tract) infections; Z98.890 Other specified postprocedural states
CPT/HCPCS: 36415; 58660; 80048; 84703; 85027; 86850; 86900; 86901; A9270; J1100; J1170; J2250; J2405; J2704; J3010; J3490; J7120

== ENCOUNTER 2020-06-17 16:59 | Emergency (ER) | payer OTHER ==
[2020-06-17 17:18] VITALS: BP 120/67; PULSE 103
[2020-06-17 19:03] LABS: BLOOD UREA NITROGEN,BUN 13 mg/dL (7.0-18.0); CARBON DIOXIDE,CO2 29.5 mmol/L (21.0-32.0); CHLORIDE,CL 102 mmol/L (98-107); GLUCOSE RANDOM 92 mg/dL (74-106); POTASSIUM,K 3.8 mmol/L (3.5-5.1); SODIUM,NA 140 mmol/L (136-145)
== END 2020-06-17 19:30 | disposition left against medical advice (07) ==
LOC: MW.ED 16:59
DX: Z53.21 Procedure and treatment not carried out due to patient leaving prior to being seen by health care provider (principal)
CPT/HCPCS: 36415; 80053; 81001; 81025; 85025

== ENCOUNTER 2020-09-11 13:03 | Emergency (ER) | payer OTHER ==
[2020-09-11] MEDS ORDERED: Ketorolac 60 MG/2 ML SDV IM ONE (13:43)
--- NOTE | 2020-09-11 13:50 | EDM.PDOC ---
ED HPI GENERAL MEDICAL PROBLEM - General Chief Complaint: Lower Extremity Injury/Pain Stated Complaint: PAIN IN RT LEG Time Seen by Provider: 09/11/20 13:06 Source of Information: Reports: Patient History Limitations: Reports: No Limitations - History of Present Illness INITIAL COMMENTS - FREE TEXT/NARRATIVE: HISTORY AND PHYSICAL: History of present illness: The patient is a 25-year-old female who presents to the emergency room with complaints of severe right lower leg pain. She states this has been intermittent for the last 2 years and got a massage a week ago after the pain started back up and instead of getting better it has gotten worse. She states that while there is no bruises on her legs today that she will get random bruises that she will noticed 1 day and they will be gone the next day. She denies any kind of trauma or injury of any kind. She states that she did play sports but that is when she was in high school. She has not sought care for this in the past. Her only health history is endometriosis for which she had exploratory surgery 2 months ago and cholecystectomy several years ago. The patient denies any fever, chills, headache, change in vision, syncope or near syncope. Denies any chest pain, back pain, shortness of breath or cough. Denies any abdominal pain, nausea, vomiting, diarrhea, constipation or dysuria. Has not noted any blood in urine or stool. Patient has been eating and drinking appropriately. Review of systems: As per history of present illness and below otherwise all systems reviewed and negative. Past medical history: As per history of present illness and as reviewed below otherwise noncontributory. Surgical history: As per history of present illness and as reviewed below otherwise noncontributory. Social history: See social history for further information Family history: As per history of present illness and as reviewed below otherwise noncontributory. Physical exam: General: Well developed and well nourished. Alert and orientated x 3. Nontoxic in appearance and in no acute distress. Vital signs are stable and have been reviewed by me. Nursing notes were reviewed. HEENT: Atraumatic, normocephalic, pupils equal and reactive bilaterally, negative for conjunctival pallor or scleral icterus, mucous membranes moist, TMs normal bilaterally, throat clear, neck supple, nontender, trachea midline. No drooling or trismus noted. No meningeal signs. No hot potato voice noted. Lungs: Clear to auscultation bilaterally. No wheezes, rales, or rhonchi. Chest nontender. Normal work of breathing, no accessory muscles used. Heart: S1S2, regular rate and rhythm without overt murmur, gallops, or rubs. No JVD. No peripheral edema Abdomen: Soft, nondistended, nontender. Normoactive bowel sounds. Negative for masses or costovertebral tenderness. Skin: Intact, warm, dry. No lesions or rashes noted. Hematologic: No petechiae or purpra. Mucosa appropriate color and normal nail bed color and refill. Extremities: Atraumatic, moves all extremities per self without difficulty or deficits, negative for cords or calf pain. Right lower extremity tender. Neurovascular unremarkable. Neuro: Awake, alert, oriented. Cranial nerves II through XII unremarkable. Cerebellum unremarkable. Motor and sensory unremarkable throughout. Exam nonfocal. Psychiatric: Mood and affect are appropriate. Normal thought process. Answering questions appropriately. Notes: *This patient was seen and evaluated during the 2019 SARS-CoV-2 novel coronavirus pandemic period. Community viral transmission is ongoing at time of this encounter and the emergency department is operating under pandemic response procedures. Stated above the patient presents for complaints of right leg pain without trauma. Her exam is benign except for some tenderness of her right lower extremity. I see no bruising, swelling, or redness on her right lower extremity. I will check blood work to ensure no infection and an ultrasound to rule out a DVT. She is agreeable to blood work and ultrasound and Toradol for pain control. The patient states that she has some mild cramping I have ordered Norflex 60 mg IM. The patient's blood work is unremarkable and her ultrasound is negative for DVT. The patient states her pain is better and has an appointment with a neurologist next month for chronic left shoulder pain and neck pain. I have advised the patient to write down all of her pain issues and talk with the neurologist at that point. I will prescribe Norflex for the patient to take at home. The patient is agreeable with the discharge plan. I have talked with the patient about today's findings, in addition to providing specific details for plan of care. Reassessment at the time of disposition demonstrates that the patient is in no acute distress. The patient is stable for discharge, counseling was provided and we discussed in great detail signs and symptoms that would prompt them to return to the Emergency Department. Medication, follow up and supportive care measures were reviewed and discussed. Voices understanding and is agreeable to plan of care. Denies any further questions or concerns at this time. Diagnostics: CBC, CMP, ultrasound Therapeutics: Toradol, Norflex Prescription: Norflex 100 mg p.o. every 12 hours #20 Impression: Right leg pain Plan: 1. You were evaluated today on an emergent basis. Your right leg pain was of evaluated with blood work and ultrasound all of which were negative. You did have some pain relief with your Toradol injection. You can continue to take Motrin at home for pain control. I gave you an injection of Norflex which is a muscle relaxer to help out with cramps. I will prescribe Norflex 100 mg every 12 hours as needed. Keep your appointment with your neurologist and make a list of all your symptoms. 2. You can alternate Tylenol and ibuprofen as needed for pain and fever management. 3. We encourage you to follow up with your primary care provider and/or re commended specialist in the next few days for re-evaluation and further care/management. 4. If your symptoms should worsen, new symptoms develop or any of the signs and symptoms we discussed should arise please return to the emergency room or call 911 (if needed). Definitive disposition and diagnosis as appropriate pending reevaluation and review of above. Right calf Pain Score (Numeric/FACES): 4 - Related Data Allergies Allergy/AdvReac Type Severity Reaction Status Date / Time caffeine Allergy heart races Verified 09/11/20 13:41 hydrocodone Allergy Tachycardia Verified 09/11/20 13:41 prednisone Allergy Chest Pain Verified 09/11/20 13:41 contrast Allergy Hives Uncoded 09/11/20 13:41 Home Meds: Home Meds Orphenadrine [Norflex] 100 mg PO BID PRN 10 Days #20 tab 09/11/20 [Rx] Past Medical History - Past Health History Medical/Surgical History: Denies Medical/Surgical History HEENT History: Reports: None Cardiovascular History: Reports: None Other Cardiovascular History: tachycardia episodes few times per wek lasting up to 1/2 hour related to anxiety or thyroid gland or both,chest pains Respiratory History: Reports: None Gastrointestinal History: Reports: GERD Other Gastrointestinal History: rt upper quad pain Genitourinary History: Reports: UTI, Recurrent Other Genitourinary History: frequent UTI in past- not recently SKI TOPPER History: Reports: None Musculoskeletal History: Reports: None Neurological History: Reports: None Psychiatric History: Reports: Anxiety, Panic Attack Endocrine/Metabolic History: Reports: Hyperthyroidism Other Endocrine/Metabolic History: has Subclinical hyperthyroidism- no treatment Hematologic History: Reports: None Immunologic History: Reports: None Oncologic (Cancer) History: Reports: None Dermatologic History: Reports: Eczema Other Dermatologic History: has seasonal ecxema - Infectious Disease History Infectious Disease History: Reports: None - Past Surgical History Head Surgeries/Procedures: Reports: None HEENT Surgical History: Reports: Oral Surgery Other HEENT Surgeries/Procedures: tooth extraction Cardiovascular Surgical History: Reports: None Respiratory Surgical History: Reports: None GI Surgical History: Reports: Cholecystectomy, Colonoscopy, EGD Female Surgical History: Reports: None Endocrine Surgical History: Reports: None Neurological Surgical History: Reports: None Musculoskeletal Surgical History: Reports: None Oncologic Surgical History: Reports: None Dermatological Surgical History: Reports: None Social & Family History - Family History Family Medical History: No Pertinent Family History HEENT: Reports: None Cardiac: Reports: None - Tobacco Use Tobacco Use Status *Q: Never Tobacco User - Caffeine Use Caffeine Use: Reports: Coffee - Recreational Drug Use Recreational Drug Use: No Review of Systems - Review of Systems Review Of Systems: Comprehensive ROS is negative, except as noted in HPI. ED EXAM, GENERAL - Physical Exam Exam: See Below (See dictation) Course - Vital Signs Last Recorded V/S: Last Vital Signs Temp 97.9 F 09/11/20 15:30 Pulse 82 09/11/20 15:30 Resp 20 09/11/20 15:30 BP 128/72 09/11/20 15:30 Pulse Ox 98 09/11/20 15:30 - Orders/Labs/Meds Labs: Laboratory Tests 09/11/20 09/11/20 Range/Units 13:55 13:55 WBC 7.11 (4.0-11.0) K/uL RBC 4.47 (4.30-5.90) M/uL Hgb 14.1 (12.0-16.0) g/dL Hct 40.1 (36.0-46.0) % MCV 89.7 (80.0-98.0) fL MCH 31.5 (27.0-32.0) pg MCHC 35.2 (31.0-37.0) g/dL RDW Std Deviation 41.6 (28.0-62.0) fl RDW Coeff of Pema 13 (11.0-15.0) % Plt Count 296 (150-400) K/uL MPV 9.20 (7.40-12.00) fL Neut % (Auto) 75.6 (48.0-80.0) % Lymph % (Auto) 19.1 (16.0-40.0) % Medina % (Auto) 4.8 (0.0-15.0) % Eos % (Auto) 0.4 (0.0-7.0) % Baso % (Auto) 0.1 (0.0-1.5) % Neut # (Auto) 5.4 (1.4-5.7) K/uL Lymph # (Auto) 1.4 (0.6-2.4) K/uL Medina # (Auto) 0.3 (0.0-0.8) K/uL Eos # (Auto) 0.0 (0.0-0.7) K/uL Baso # (Auto) 0.0 (0.0-0.1) K/uL Nucleated RBC % 0.0 /100WBC Nucleated RBCs # 0 K/uL Sodium 142 (136-145) mmol/L Potassium 4.0 (3.5-5.1) mmol/L Chloride 106 (98-107) mmol/L Carbon Dioxide 30.0 (21.0-32.0) mmol/L BUN 13 (7.0-18.0) mg/dL Creatinine 0.7 (0.6-1.0) mg/dL Est Cr Clr Drug Dosing 107.93 mL/min Estimated GFR (MDRD) > 60.0 ml/min Glucose 105 (74-106) mg/dL Calcium 8.2 L (8.5-10.1) mg/dL Total Bilirubin 0.7 (0.2-1.0) mg/dL AST 16 (15-37) IU/L ALT 29 (14-63) IU/L Alkaline Phosphatase 45 L (46-116) U/L Total Protein 7.3 (6.4-8.2) g/dL Albumin 3.7 (3.4-5.0) g/dL Globulin 3.6 (2.6-4.0) g/dL Albumin/Globulin Ratio 1.0 (0.9-1.6) Meds: Medications Discontinued Medications Generic Name Dose Route Start Last Admin Trade Name Alejandro PRN Reason Stop Dose Admin Ketorolac Tromethamine 60 mg 09/11/20 13:43 09/11/20 13:58 Ketorolac 60 Mg/2 Ml Sdv IM 09/11/20 13:44 60 mg ONETIME ONE Administration Orphenadrine Citrate 60 mg 09/11/20 14:53 09/11/20 15:04 Orphenadrine 60 Mg/2 Ml Inj IM 09/11/20 14:54 60 mg ONETIME ONE Administration Departure - Departure Time of Disposition: 15:02 Disposition: Home, Self-Care 01 Condition: Good Clinical Impression: Leg pain Qualifiers: Laterality: right Qualified Code(s): M79.604 - Pain in right leg - Discharge Information *PRESCRIPTION DRUG MONITORING PROGRAM REVIEWED*: Not Applicable *COPY OF PRESCRIPTION DRUG MONITORING REPORT IN PATIENT ROBERT: Not Applicable Prescriptions: Orphenadrine [Norflex] 100 mg PO BID PRN 10 Days #20 tab PRN Reason: Cramping Referrals: Rosemary Piña NP [Primary Care Provider] - Forms: ED Department Discharge Additional Instructions: The following information is given to patients seen in the emergency department who are being discharged to home. This information is to outline your options for follow-up care. We provide all patients seen in our emergency department with a follow-up referral. The need for follow-up, as well as the timing and circumstances, are variable depending upon the specifics of your emergency department visit. If you don't have a primary care physician on staff, we will provide you with a referral. We always advise you to contact your personal physician following an emergency department visit to inform them of the circumstance of the visit and for follow-up with them and/or the need for any referrals to a consulting specialist. The emergency department will also refer you to a specialist when appropriate. This referral assures that you have the opportunity for follow-up care with a specialist. All of these measure are taken in an effort to provide you with optimal care, which includes your follow-up. Under all circumstances we always encourage you to contact your private physician who remains a resource for coordinating your care. When calling for follow-up care, please make the office aware that this follow-up is from your recent emergency room visit. If for any reason you are refused follow-up, please contact the [facility] Emergency Department at and asked to speak to the emergency department charge nurse. [facility] [address], [place] [address] [facility] [address] [place] [address] Plan: 1. You were evaluated today on an emergent basis. Your right leg pain was of evaluated with blood work and ultrasound all of which were negative. You did have some pain relief with your Toradol injection. You can continue to take Mot rin at home for pain control. I gave you an injection of Norflex which is a muscle relaxer to help out with cramps. I will prescribe Norflex 100 mg every 12 hours as needed. Keep your appointment with your neurologist and make a list of all your symptoms. 2. You can alternate Tylenol and ibuprofen as needed for pain and fever management. 3. We encourage you to follow up with your primary care provider and/or recommended specialist in the next few days for re-evaluation and further care/management. 4. If your symptoms should worsen, new symptoms develop or any of the signs and symptoms we discussed should arise please return to the emergency room or call 911 (if needed). Sepsis Event Note (ED) - Evaluation Sepsis Screening Result: No Definite Risk - Focused Exam Vital Signs: Vital Signs Temp Pulse Resp BP Pulse Ox 09/11/20 15:30 97.9 F 82 20 128/72 98 09/11/20 14:41 98.0 F 78 18 132/82 98 09/11/20 13:31 98.5 F 112 H 18 116/74 97
[2020-09-11 14:25] LABS: BLOOD UREA NITROGEN,BUN 13 mg/dL (7.0-18.0); CHLORIDE,CL 106 mmol/L (98-107); GLUCOSE RANDOM 105 mg/dL (74-106); SODIUM,NA 142 mmol/L (136-145)
[2020-09-11] MEDS ORDERED: Orphenadrine 60 MG/2 ML Inj IM ONE (14:53)
--- NOTE | 2020-09-11 14:56 | US ---
For Patients: As a result of the Century Cures Act, medical imaging exams and procedure reports are released immediately into your electronic medical record. You may view this report before your referring provider. If you have questions, please contact your health care provider. INDICATION: Severe pain in leg, no injury TECHNIQUE: Ultrasound venous duplex lower right extremity. Compression venous exam was performed using aldana-scale, color Doppler, and spectral Doppler imaging. COMPARISON: None FINDINGS: Sonographic imaging demonstrates the right common femoral, deep femoral, superficial femoral, popliteal, posterior tibial and greater saphenous veins to be fully compressible with normal color Doppler blood flow. Shotty lymph nodes noted in the right groin. IMPRESSION: Normal right lower extremity venous ultrasound, no sign of deep venous thrombosis. Dictated by Sheryl Pruett MD @ 09/11/2020 2:54:[address] Sheryl Pruett @ Sep 11 2020 2:54PM
[2020-09-11 15:32] VITALS: BP 128/72; PULSE 82
== END 2020-09-11 15:30 | disposition home or self-care (01) ==
LOC: MW.ED 13:03
DX: M79.604 Pain in right leg (principal); Z88.5 Allergy status to narcotic agent; Z91.041 Radiographic dye allergy status; Z88.8 Allergy status to other drugs, medicaments and biological substances
CPT/HCPCS: 36415; 80053; 85025; 93971; 96372; 99284; J1885; J2360

== ENCOUNTER 2020-10-30 04:56 | Emergency (ER) | payer OTHER ==
[2020-10-30] MEDS ORDERED: Ketorolac 30 MG/ML SDV IVPUSH ONE (05:19)
[2020-10-30] MEDS ORDERED: Sodium Chloride 0.9% 2.5 ML Syringe FLUSH PRN (05:19)
[2020-10-30] MEDS ORDERED: Sodium Chloride 0.9% 10 ML Syringe FLUSH PRN (05:19)
[2020-10-30] MEDS ORDERED: Sodium Chloride 0.9% 1,000 ML IV ONE (05:19)
[2020-10-30] MEDS ORDERED: Ondansetron 4 MG/2 ML SDV IVPUSH ONE (05:22)
[2020-10-30] MEDS ORDERED: Ondansetron 4 MG/2 ML SDV ONE (05:23)
[2020-10-30 05:42] LABS: BLOOD UREA NITROGEN,BUN 12 mg/dL (7.0-18.0); CARBON DIOXIDE,CO2 25.9 mmol/L (21.0-32.0); CHLORIDE,CL 104 mmol/L (98-107); GLUCOSE RANDOM 88 mg/dL (74-106); POTASSIUM,K 3.9 mmol/L (3.5-5.1); SODIUM,NA 140 mmol/L (136-145)
--- NOTE | 2020-10-30 05:49 | EDM.PDOC ---
<Eric Valdovinos - Last Filed: 10/30/20 06:38> ED HPI GENERAL MEDICAL PROBLEM - General Chief Complaint: Abdominal Pain Stated Complaint: ABDOMINAL PAIN Time Seen by Provider: 10/30/20 05:19 - History of Present Illness INITIAL COMMENTS - FREE TEXT/NARRATIVE: HISTORY AND PHYSICAL: History of present illness: This is a 25-year-old female who presents ER today complaining of left lower quadrant and left upper quadrant abdominal pain x1 day. Patient denies any recent fevers, shakes, chills, nausea, vomiting, diarrhea, frequency, urgency. Patient does complain of some dysuria. Patient denies any vaginal discharge but does have slight vaginal bleeding still. Patient reports she is status post cholecystectomy. Review of systems: As per history of present illness and below otherwise all systems reviewed and negative. Past medical history: As per history of present illness and as reviewed below otherwise noncontributory. Surgical history: As per history of present illness and as reviewed below otherwise noncontributory. Social history: No reported history of drug abuse. Family history: As per history of present illness and as reviewed below otherwise noncontributory. Physical exam: This patient was seen and evaluated during the 2019 SARS-CoV-2 novel coronavirus pandemic period. Community viral transmission is ongoing at time of this encounter and the emergency department is operating under pandemic response procedures. Constitutional: Patient is oriented to person, place, and time. Appears well- developed and well-nourished. No distress. HEENT: Moist mucous membranes Head: Normocephalic and atraumatic Eyes: Right eye exhibits no discharge. Left eye exhibits no discharge. No scleral icterus Neck: Normal range of motion. No tracheal deviation present. Cardiovascular: Normal rate and regular rhythm. Pulmonary: Effort normal, no respiratory distress. Abd: Soft, nondistended, no rebound/guarding, no psoas or obturator signs, no tenderness at Mcberney's point, no Malone's sign. Pt does not present with an exam that would be consistent with an acute surgical abdomen at this time patient with tenderness palpation to her left lower quadrant greater than right lower quadrant. Musculoskeletal: Normal range of motion Neurologic: Alert and oriented to person, place and time. Skin: [place], warm and dry. Psychiatric: Normal mood and affect. Behavior is normal. Judgment and thought content normal. Nursing note and vital signs have been reviewed Pelvic: Patient was tenderness to palpation to her left adnexa. Patient has no cervical motion tenderness. No significant vaginal discharge or bleeding at this time. Diagnostics: CT scan of the abdomen pelvis reveals nonspecific moderate asymmetric enlargement of the left ovary. Ultrasound evaluation to be considered if there is concern for ovarian torsion as a potential source of the patient's left-sided pain. No renal stones and no hydronephrosis identified. Remainder of the exam is unremarkable. Therapeutics: Toradol 30 mg IV. Patient reports that she has some relief from the Toradol. Assessment and plan: 24-year-old female who presents ER today secondary to left-sided abdominal pain. Patient will have a CT scan of the abdomen pelvis to rule out kidney stones as well as other pathology. Patient's urinalysis was normal without any evidence of UTI. Patient CBC, CMP, lipase were all within normal limits.. Patient was given Toradol to assist with her pain and discomfort. She reports some relief in discomfort after Toradol. Patient's CT scan was obtained and report reveals a asymmetric enlargement of her left ovary and they are recommending an ultrasound to rule out torsion. Patient will get a pelvic exam and pelvic ultrasound performed. 7 AM: Care will be signed out to oncoming physician pending pelvic ultrasound for evaluation of possible torsion. Definitive disposition and diagnosis as appropriate pending reevaluation and review of above. - Related Data Allergies Allergy/AdvReac Type Severity Reaction Status Date / Time caffeine Allergy heart races Verified 10/30/20 05:22 hydrocodone Allergy Tachycardia Verified 10/30/20 05:22 prednisone Allergy Chest Pain Verified 10/30/20 05:22 contrast Allergy Hives Uncoded 09/11/20 13:41 Past Medical History - Past Health History Medical/Surgical History: Denies Medical/Surgical History HEENT History: Reports: None Cardiovascular History: Reports: None Other Cardiovascular History: tachycardia episodes few times per wek lasting up to 1/2 hour related to anxiety or thyroid gland or both,chest pains Respiratory History: Reports: None Gastrointestinal History: Reports: GERD Other Gastrointestinal History: rt upper quad pain Genitourinary History: Reports: UTI, Recurrent Other Genitourinary History: frequent UTI in past- not recently [employer] History: Reports: None Musculoskeletal History: Reports: None Neurological History: Reports: None Psychiatric History: Reports: Anxiety, Panic Attack Endocrine/Metabolic History: Reports: Hyperthyroidism Other Endocrine/Metabolic History: has Subclinical hyperthyroidism- no treatment Hematologic History: Reports: None Immunologic History: Reports: None Oncologic (Cancer) History: Reports: None Dermatologic History: Reports: Eczema Other Dermatologic History: has seasonal ecxema - Infectious Disease History Infectious Disease History: Reports: None - Past Surgical History Head Surgeries/Procedures: Reports: None HEENT Surgical History: Reports: Oral Surgery Other HEENT Surgeries/Procedures: tooth extraction Cardiovascular Surgical History: Reports: None Respiratory Surgical History: Reports: None GI Surgical History: Reports: Cholecystectomy, Colonoscopy, EGD Female Surgical History: Reports: None Endocrine Surgical History: Reports: None Neurological Surgical History: Reports: None Musculoskeletal Surgical History: Reports: None Oncologic Surgical History: Reports: None Dermatological Surgical History: Reports: None Social & Family History - Family History Family Medical History: No Pertinent Family History HEENT: Reports: None Cardiac: Reports: None - Caffeine Use Caffeine Use: Reports: Coffee Departure - Departure Disposition: Home, Self-Care 01 Clinical Impression: Bacterial vaginosis - Discharge Information Instructions: Bacterial Vaginosis Referrals: Rosemary Piña NP [Primary Care Provider] - Forms: ED Department Discharge Additional Instructions: The following information is given to patients seen in the emergency department who are being discharged to home. This information is to outline your options for follow-up care. We provide all patients seen in our emergency department with a follow-up referral. The need for follow-up, as well as the timing and circumstances, are variable depending upon the specifics of your emergency department visit. If you don't have a primary care physician on staff, we will provide you with a referral. We always advise you to contact your personal physician following an emergency department visit to inform them of the circumstance of the visit and for follow-up with them and/or the need for any referrals to a consulting specialist. The emergency department will also refer you to a specialist when appropriate. This referral assures that you have the opportunity for follow-up care with a specialist. All of these measure are taken in an effort to provide you with optimal care, which includes your follow-up. Under all circumstances we always encourage you to contact your private physician who remains a resource for coordinating your care. When calling for follow-up care, please make the office aware that this follow-up is from your recent emergency room visit. If for any reason you are refused follow-up, please contact the [facility] Emergency Department at and asked to speak to the emergency department charge nurse. Please follow up with your primary care physician. If you do not have a primary care physician, see below: [facility] [address] [place] [id number] [facility] [address] [place] [address] You are seen today for abdominal pain. Your ultrasound showed endometriosis which you are aware of. We also found to have bacterial vaginosis that we would treat with metronidazole and also yeast infection and we will treat with antifungal. This also could be contributing to your pain. If you have any other concerning signs or symptoms please return to the ED. Sepsis Event Note (ED) - Evaluation Sepsis Screening Result: No Definite Risk <Enrico Giron - Last Filed: 10/30/20 08:53> ED ROS GENERAL - Review of Systems Review Of Systems: See Below ED EXAM, GENERAL - Physical Exam Exam: See Below Course - Vital Signs Last Recorded V/S: Last Vital Signs Temp 98.2 F 10/30/20 08:27 Pulse 62 10/30/20 08:27 Resp 18 10/30/20 08:27 BP 102/61 10/30/20 08:27 Pulse Ox 98 10/30/20 08:27 - Orders/Labs/Meds Orders: Active Orders 24 hr Category Date Time Status CHLAMYDIA AND GONORRHEA BY TMA Stat Lab 10/30/20 06:45 Received Sodium Chloride 0.9% [Saline Flush] Med 10/30/20 05:19 Active 10 ml FLUSH ASDIRECTED PRN Sodium Chloride 0.9% [Saline Flush] Med 10/30/20 05:19 Active 2.5 ml FLUSH ASDIRECTED PRN Saline Lock Insert [OM.PC] Stat Oth 10/30/20 05:19 Ordered Medication Orders Sodium Chloride (Sodium Chloride 0.9% 10 Ml Syringe) 10 ml FLUSH ASDIRECTED PRN PRN Reason: Keep Vein Open Sodium Chloride (Sodium Chloride 0.9% 2.5 Ml Syringe) 2.5 ml FLUSH ASDIRECTED PRN PRN Reason: Keep Vein Open Labs: Laboratory Tests 10/30/20 10/30/20 10/30/20 Range/Units 05:15 05:15 05:15 WBC 6.51 (4.0-11.0) K/uL RBC 4.43 (4.30-5.90) M/uL Hgb 14.0 (12.0-16.0) g/dL Hct 38.8 (36.0-46.0) % MCV 87.6 (80.0-98.0) fL MCH 31.6 (27.0-32.0) pg MCHC 36.1 (31.0-37.0) g/dL RDW Std Deviation 42.8 (28.0-62.0) fl RDW Coeff of Pema 13 (11.0-15.0) % Plt Count 310 (150-400) K/uL MPV 9.30 (7.40-12.00) fL Neut % (Auto) 64.5 (48.0-80.0) % Lymph % (Auto) 28.9 (16.0-40.0) % [place] % (Auto) 5.1 (0.0-15.0) % Eos % (Auto) 1.2 (0.0-7.0) % Baso % (Auto) 0.3 (0.0-1.5) % Neut # (Auto) 4.2 (1.4-5.7) K/uL Lymph # (Auto) 1.9 (0.6-2.4) K/uL [place] # (Auto) 0.3 (0.0-0.8) K/uL Eos # (Auto) 0.1 (0.0-0.7) K/uL Baso # (Auto) 0.0 (0.0-0.1) K/uL Nucleated RBC % 0.0 /100WBC Nucleated RBCs # 0 K/uL Sodium 140 (136-145) mmol/L Potassium 3.9 (3.5-5.1) mmol/L Chloride 104 (98-107) mmol/L Carbon Dioxide 25.9 (21.0-32.0) mmol/L BUN 12 (7.0-18.0) mg/dL Creatinine 0.8 (0.6-1.0) mg/dL Est Cr Clr Drug Dosing TNP Estimated GFR (MDRD) > 60.0 ml/min Glucose 88 (74-106) mg/dL Calcium 8.3 L (8.5-10.1) mg/dL Total Bilirubin 1.2 H (0.2-1.0) mg/dL AST 12 L (15-37) IU/L ALT 13 L (14-63) IU/L Alkaline Phosphatase 39 L (46-116) U/L Total Protein 7.1 (6.4-8.2) g/dL Albumin 3.9 (3.4-5.0) g/dL Globulin 3.2 (2.6-4.0) g/dL Albumin/Globulin Ratio 1.2 (0.9-1.6) Lipase 111 (73-393) U/L Urine Color Urine Appearance Urine pH (5.0-8.0) Ur Specific [place] (1.001-1.035) Urine Protein (NEGATIVE) mg/dL Urine Glucose (UA) (NEGATIVE) mg/dL Urine Ketones (NEGATIVE) mg/dL Urine Occult Blood (NEGATIVE) Urine Nitrite (NEGATIVE) Urine Bilirubin (NEGATIVE) Urine Urobilinogen (<2.0) EU/dL Ur Leukocyte Esterase (NEGATIVE) Urine RBC (0-2/HPF) Urine WBC (0-5/HPF) Ur Epithelial Cells (NONE-FEW) Urine Bacteria (NEGATIVE) Urine HCG, Qual (NEGATIVE) Jovana species DNA (NEGATIVE) Gardnerella DNA Probe (NEGATIVE) Trichomonas DNA Probe (NEGATIVE) 10/30/20 10/30/20 10/30/20 Range/Units 05:26 05:26 06:45 WBC (4.0-11.0) K/uL RBC (4.30-5.90) M/uL Hgb (12.0-16.0) g/dL Hct (36.0-46.0) % MCV (80.0-98.0) fL MCH (27.0-32.0) pg MCHC (31.0-37.0) g/dL RDW Std Deviation (28.0-62.0) fl RDW Coeff of Pema (11.0-15.0) % Plt Count (150-400) K/uL MPV (7.40-12.00) fL Neut % (Auto) (48.0-80.0) % Lymph % (Auto) (16.0-40.0) % [place] % (Auto) (0.0-15.0) % Eos % (Auto) (0.0-7.0) % Baso % (Auto) (0.0-1.5) % Neut # (Auto) (1.4-5.7) K/uL Lymph # (Auto) (0.6-2.4) K/uL [place] # (Auto) (0.0-0.8) K/uL Eos # (Auto) (0.0-0.7) K/uL Baso # (Auto) (0.0-0.1) K/uL Nucleated RBC % /100WBC Nucleated RBCs # K/uL Sodium (136-145) mmol/L Potassium (3.5-5.1) mmol/L Chloride (98-107) mmol/L Carbon Dioxide (21.0-32.0) mmol/L BUN (7.0-18.0) mg/dL Creatinine (0.6-1.0) mg/dL Est Cr Clr Drug Dosing Estimated GFR (MDRD) ml/min Glucose (74-106) mg/dL Calcium (8.5-10.1) mg/dL Total Bilirubin (0.2-1.0) mg/dL AST (15-37) IU/L ALT (14-63) IU/L Alkaline Phosphatase (46-116) U/L Total Protein (6.4-8.2) g/dL Albumin (3.4-5.0) g/dL Globulin (2.6-4.0) g/dL Albumin/Globulin Ratio (0.9-1.6) Lipase (73-393) U/L Urine Color YELLOW Urine Appearance CLEAR Urine pH 5.5 (5.0-8.0) Ur Specific [place] <= 1.005 (1.001-1.035) Urine Protein NEGATIVE (NEGATIVE) mg/dL Urine Glucose (UA) NEGATIVE (NEGATIVE) mg/dL Urine Ketones NEGATIVE (NEGATIVE) mg/dL Urine Occult Blood NEGATIVE (NEGATIVE) Urine Nitrite NEGATIVE (NEGATIVE) Urine Bilirubin NEGATIVE (NEGATIVE) Urine Urobilinogen 0.2 (<2.0) EU/dL Ur Leukocyte Esterase TRACE H (NEGATIVE) Urine RBC NONE SEEN (0-2/HPF) Urine WBC 0-2 (0-5/HPF) Ur Epithelial Cells RARE (NONE-FEW) Urine Bacteria RARE (NEGATIVE) Urine HCG, Qual NEGATIVE (NEGATIVE) Jovana species DNA POSITIVE H (NEGATIVE) Gardnerella DNA Probe POSITIVE H (NEGATIVE) Trichomonas DNA Probe NEGATIVE (NEGATIVE) Meds: Medications Generic Name Dose Route Start Last Admin Trade Name Freq PRN Reason Stop Dose Admin Sodium Chloride 10 ml 10/30/20 05:19 Sodium Chloride 0.9% 10 Ml Syringe FLUSH ASDIRECTED PRN Keep Vein Open Sodium Chloride 2.5 ml 10/30/20 05:19 Sodium Chloride 0.9% 2.5 Ml Syringe FLUSH ASDIRECTED PRN Keep Vein Open Discontinued Medications Generic Name Dose Route Start Last Admin Trade Name Freq PRN Reason Stop Dose Admin Sodium Chloride 1,000 mls @ 999 mls/hr 10/30/20 05:19 10/30/20 05:25 Normal Saline IV 10/30/20 06:19 999 mls/hr .Bolus ONE Administration Ketorolac Tromethamine 30 mg 10/30/20 05:19 10/30/20 05:26 Ketorolac 30 Mg/Ml Sdv IVPUSH 10/30/20 05:20 30 mg ONETIME ONE Administration Ondansetron HCl 4 mg 10/30/20 05:22 10/30/20 05:26 Ondansetron 4 Mg/2 Ml Sdv IVPUSH 10/30/20 05:23 4 mg ONETIME ONE Administration Ondansetron HCl Confirm 10/30/20 05:23 10/30/20 05:27 Ondansetron 4 Mg/2 Ml Sdv Administered 10/30/20 05:24 Not Given Dose 4 mg .ROUTE .STK-MED ONE - Re-Assessments/Exams Free Text/Narrative Re-Assessment/Exam: 10/30/20 08:50 Patient ultrasound did show endometriosis which she is aware and she recently had a surgery to remove some of the tissue. She also has bacterial vaginosis and Jovana. Will treat both accordingly and discharged home. Departure - Departure Time of Disposition: 08:51 Condition: Good - Discharge Information *PRESCRIPTION DRUG MONITORING PROGRAM REVIEWED*: Not Applicable *COPY OF PRESCRIPTION DRUG MONITORING REPORT IN PATIENT ROBERT: Not Applicable Sepsis Event Note (ED) - Focused Exam Vital Signs: Vital Signs Temp Pulse Resp BP Pulse Ox 10/30/20 08:27 98.2 F 62 18 102/61 98 10/30/20 08:00 98.2 F 62 18 106/64 98 10/30/20 07:00 97.4 F 80 18 97/56 L 98 10/30/20 05:20 97.9 F 77 20 108/70 100
--- NOTE | 2020-10-30 06:27 | CT ---
INDICATION: Left flank pain. TECHNIQUE: CT abdomen and pelvis without contrast. COMPARISON: None. FINDINGS: Lower chest: Unremarkable. Liver: Normal in size and attenuation. No suspicious masses. Gallbladder and bile ducts: Post cholecystectomy. Pancreas: Unremarkable. No mass or inflammation. Spleen: Normal in size. No masses. Adrenal glands: Normal in size. No nodules. Kidneys: Normal in size. No suspicious masses, stones, or hydronephrosis. GI tract: Unremarkable. Normal in caliber. No sign of mass or inflammation. Normal appendix. Vasculature: Unremarkable. Lymph nodes: No lymphadenopathy. Abdominal wall/Omentum/Peritoneum: Unremarkable. No sign of mass or infiltration. No free air or significant free fluid. Pelvis: There is asymmetric enlargement of the left ovary which is measured at 4.5 cm mass visualized on series 201, image 124. Pelvic structures otherwise normal. Bones: Unremarkable for age. IMPRESSION: 1. Nonspecific moderate asymmetric enlargement of the left ovary. Ultrasound evaluation should be considered if there is concern for ovarian torsion as a potential source of the patient`s left side pain. 2. No renal stones and no hydronephrosis. 3. Remainder of the exam is unremarkable. No other specific finding to explain left flank pain. Please note that all CT scans at this facility use dose modulation, iterative reconstruction, and/or weight-based dosing when appropriate to reduce radiation dose to as low as reasonably achievable. Dictated by Rogelio Hunt MD @ 10/30/2020 6:25:[address] Rogelio Hunt @ Oct 30 2020 6:25AM
--- NOTE | 2020-10-30 08:19 | US ---
INDICATION: Pain. Abnormal left ovary. History of endometriosis. TECHNIQUE: Ultrasound pelvis transvaginal for better assessment or to better visualize the endometrium. Real-time sonographic images with spectral and color Doppler imaging of the ovaries were obtained. COMPARISON: CT abdomen pelvis October 30, 2020. FINDINGS: Uterus: 6 x 4 x 3 cm. Normal echotexture of the myometrium. No masses. Endometrium: Transvaginal imaging was performed to better evaluate the endometrium. Endometrial thickness measures 4 mm. No sign of endometrial mass or fluid. Right ovary measures 4 x 4 x 3 cm and left ovary measures 4 x 4 x 3 cm. There is a solid lesion in the left ovary measuring approximately 3 cm. Smaller similar appearing solid lesion in the right ovary measures 1.5 cm. Normal arterial and venous blood flow is demonstrated in both ovaries. Cul-de-sac: No significant free fluid. IMPRESSION: 1. Both ovaries contain solid lesions with the larger lesion on the left measuring approximately 3 cm. These could represent endometriomas. Follow-up ultrasound evaluation is optional. 2. Normal blood flow in both ovaries. No sign of torsion. 3. Remainder of the exam is unremarkable. Dictated by Rogelio Hunt MD @ 10/30/2020 8:19:[address] Rogelio Hunt @ Oct 30 2020 8:19AM
[2020-10-30 09:09] VITALS: BP 121/88; PULSE 78
[2020-10-31 12:07] LABS: C.TRACHOMATIS BY TMA Negative (Negative); N.GONORRHOEAE BY TMA Negative (Negative)
== END 2020-10-30 09:05 | disposition home or self-care (01) ==
LOC: MW.ED 04:56
DX: N76.0 Acute vaginitis (principal); B96.89 Other specified bacterial agents as the cause of diseases classified elsewhere; Z91.041 Radiographic dye allergy status; Z88.5 Allergy status to narcotic agent; Z91.018 Allergy to other foods
CPT/HCPCS: 36415; 74176; 76857; 80053; 81001; 81025; 83690; 85025; 87480; 87491; 87510; 87591; 87660; 96374; 96375; 99284; J1885; J2405; J7030

== ENCOUNTER 2020-10-30 15:51 | Emergency (ER) | payer OTHER ==
[2020-10-30] MEDS ORDERED: Scopolamine 1.5 MG Transdermal Patch TRDERM STA (16:12)
[2020-10-30] MEDS ORDERED: Sodium Chloride 0.9% 1,000 ML IV ONE (16:12)
[2020-10-30] MEDS ORDERED: Ketorolac 30 MG/ML SDV IVPUSH ONE (16:13)
--- NOTE | 2020-10-30 16:16 | PCM.EKG ---
#1 Interpretation EKG Date: 10/30/20 Time: 16:07 Rhythm: NSR Rate (Beats/Min): 71 ST-T: Normal
--- NOTE | 2020-10-30 16:33 | EDM.PDOC ---
ED HPI GENERAL MEDICAL PROBLEM - General Chief Complaint: General Stated Complaint: HARD TO BREATHE AND VERY DIZZY Time Seen by Provider: 10/30/20 15:53 Source of Information: Reports: Patient History Limitations: Reports: No Limitations - History of Present Illness INITIAL COMMENTS - FREE TEXT/NARRATIVE: HISTORY AND PHYSICAL: History of present illness: Patient is a 25-year-old female who presents to the emergency room with complaints of abdominal bloating, dizziness and feeling faint. Patient was seen in the emergency room earlier this morning for abdominal pain. At that time she did have an ultrasound and CT of the abdomen/pelvis which concluded that her left ovary was slightly enlarged and confirming endometriosis. Patient states she has a history of endometriosis. She also was diagnosed with bacterial vaginosis and candidiasis. Patient states she was still dizzy upon discharge. Dizziness has not improved. She states she is scared to walk around as she fe els she may pass out. The abdominal pain has improved although she feels "bloated". She did take a Xanax prior to arrival and is feeling somewhat improved of her "heart racing". Patient denies any fever, chills, headache, change in vision, or syncope. Denies any chest pain, back pain, shortness of breath or cough. Denies any nausea, vomiting, diarrhea, constipation or dysuria. Has not noted any blood in urine or stool. Patient has been eating and drinking appropriately. Review of systems: As per history of present illness and below otherwise all systems reviewed and negative. Past medical history: As per history of present illness and as reviewed below otherwise noncontributory. Surgical history: As per history of present illness and as reviewed below otherwise noncontributory. Social history: See social history for further information Family history: As per history of present illness and as reviewed below otherwise noncontributory. Physical exam: General: Well developed and well nourished 25-year-old female. Alert and orientated x 3. Nontoxic in appearance and in no acute distress. Vital signs are stable and have been reviewed by me. Nursing notes were reviewed. HEENT: Atraumatic, normocephalic, pupils equal and reactive bilaterally, negative for conjunctival pallor or scleral icterus, mucous membranes moist, trachea midline. No drooling or trismus noted. No meningeal signs. No hot potato voice noted. Lungs: Clear to auscultation bilaterally. No wheezes, rales, or rhonchi. Chest nontender. Normal work of breathing, no accessory muscles used. Heart: S1S2, regular rate and rhythm without overt murmur, gallops, or rubs. No JVD. No peripheral edema Abdomen: Soft, nondistended, nontender. Normoactive bowel sounds. Negative for masses or costovertebral tenderness. Skin: Intact, warm, dry. No lesions or rashes noted. Hematologic: No petechiae or purpra. Mucosa appropriate color and normal nail bed color and refill. Extremities: Atraumatic, moves all extremities per self without difficulty or deficits, negative for cords or calf pain. Neurovascular unremarkable. Neuro: Awake, alert, oriented. Cranial nerves II through XII unremarkable. Cerebellum unremarkable. Motor and sensory unremarkable throughout. Exam nonfocal. Psychiatric: Mood and affect are appropriate. Normal thought process. Answering questions appropriately. Notes: *This patient was seen and evaluated during the 2019 SARS-CoV-2 novel coronavirus pandemic period. Community viral transmission is ongoing at time of this encounter and the emergency department is operating under pandemic response procedures. 10/30/20: Ultrasound shows both ovaries contain solid lesions with larger lesion on the left measuring 3 cm. These could represent endometriomas. Normal blood flow of both ovaries. No sign of torsion. CT was also performed showing nonspecific moderate asymmetric enlargement of the left ovary. No kidney stones or hydronephrosis. Remainder of the exam is unremarkable. Patient's lab work was within normal limits with the exception of bacterial vaginosis and candidiasis. She was given Flagyl and Diflucan. She states she took the medication this morning without any problems. States the pain continued and she feels "bloated". She states her dizziness has increased and that is the main reason of being here today. Patient's EKG is unremarkable with a sinus rhythm and rate of 71. Patient's vital signs are unremarkable. Given that the patient just had lab work and imaging I will repeat basic labs, do orthostatic vital signs and give her a liter of fluids with a Scopolamine patch for her dizziness. Orthostatic vital signs after fluids have improved. She states she feels better and is requesting some of her abdominal cramping. I will give her some diclo fenac, within strict instructions of taking this with food and only as needed. To be taken with any additional NSAIDs. I have talked with the patient about today's findings, in addition to providing specific details for plan of care. Reassessment at the time of disposition demonstrates that the patient is in no acute distress. The patient is stable for discharge, counseling was provided and we discussed in great detail signs and symptoms that would prompt them to return to the Emergency Department. Medication, follow up and supportive care measures were reviewed and discussed. Voices understanding and is agreeable to plan of care. Denies any further questions or concerns at this time. Diagnostics: CBC, CMP, orthostatic vital signs, EKG Therapeutics: Scopolamine patch Prescription: Diclofenac 50 mg twice daily as needed Impression: Dizziness Abdominal Pain Plan: 1. You were evaluated today on an emergent basis. Your lab work is normal. Please take it easy over the next few days as you are feeling unwell. Increase your fluids. Continue taking your medications you are prescribed this morning. 2. You can alternate Tylenol and ibuprofen as needed for pain and fever manage ment. 3. We encourage you to follow up with your primary care provider and/or recommended specialist in the next few days for re-evaluation and further care/management. 4. If your symptoms should worsen, new symptoms develop or any of the signs and symptoms we discussed should arise please return to the emergency room or call 911 (if needed). Definitive disposition and diagnosis as appropriate pending reevaluation and review of above. Abdominal Pain Score (Numeric/FACES): 8 - Related Data Allergies Allergy/AdvReac Type Severity Reaction Status Date / Time caffeine Allergy heart races Verified 10/30/20 05:22 hydrocodone Allergy Tachycardia Verified 10/30/20 05:22 methylprednisolone Allergy Cannot Verified 10/30/20 15:58 Remember prednisone Allergy Chest Pain Verified 10/30/20 05:22 contrast Allergy Hives Uncoded 10/30/20 15:58 Home Meds: Home Meds ALPRAZolam [Xanax] 0.5 mg PO TID PRN 10/30/20 [History] Diclofenac Sodium [Voltaren] 50 mg PO BID PRN #30 tab.ec 10/30/20 [Rx] Fluconazole [Diflucan] 100 mg PO ONETIME 1 Days #1 tab 10/30/20 [Rx] metroNIDAZOLE [Flagyl] 500 mg PO Q12H 7 Days #14 tab 10/30/20 [Rx] Past Medical History - Past Health History Medical/Surgical History: Denies Medical/Surgical History HEENT History: Reports: None Cardiovascular History: Reports: None Other Cardiovascular History: tachycardia episodes few times per wek lasting up to 1/2 hour related to anxiety or thyroid gland or both,chest pains Respiratory History: Reports: None Gastrointestinal History: Reports: GERD Other Gastrointestinal History: rt upper quad pain Genitourinary History: Reports: UTI, Recurrent Other Genitourinary History: frequent UTI in past- not recently [employer] History: Reports: None Musculoskeletal History: Reports: None Neurological History: Reports: None Psychiatric History: Reports: Anxiety, Panic Attack Endocrine/Metabolic History: Reports: Hyperthyroidism Other Endocrine/Metabolic History: has Subclinical hyperthyroidism- no treatment Hematologic History: Reports: None Immunologic History: Reports: None Oncologic (Cancer) History: Reports: None Dermatologic History: Reports: Eczema Other Dermatologic History: has seasonal ecxema - Infectious Disease History Infectious Disease History: Reports: None - Past Surgical History Head Surgeries/Procedures: Reports: None HEENT Surgical History: Reports: Oral Surgery Other HEENT Surgeries/Procedures: tooth extraction Cardiovascular Surgical History: Reports: None Respiratory Surgical History: Reports: None GI Surgical History: Reports: Cholecystectomy, Colonoscopy, EGD Female Surgical History: Reports: None Endocrine Surgical History: Reports: None Neurological Surgical History: Reports: None Musculoskeletal Surgical History: Reports: None Oncologic Surgical History: Reports: None Dermatological Surgical History: Reports: None Social & Family History - Family History Family Medical History: No Pertinent Family History HEENT: Reports: None Cardiac: Reports: None - Tobacco Use Tobacco Use Status *Q: Never Tobacco User - Caffeine Use Caffeine Use: Reports: None - Recreational Drug Use Recreational Drug Use: No ED ROS GENERAL - Review of Systems Review Of Systems: Comprehensive ROS is negative, except as noted in HPI. ED EXAM, GI/ABD - Physical Exam Exam: See Below (See dictation) Course - Vital Signs Last Recorded V/S: Last Vital Signs Temp 96.9 F 10/30/20 15:59 Pulse 96 10/30/20 15:59 Resp 22 H 10/30/20 15:59 BP 161/59 H 10/30/20 15:59 Pulse Ox 96 10/30/20 15:59 Orthostatic Blood Pressure [ 95/60 Standing] Orthostatic Blood Pressure [ 103/66 Sitting] Orthostatic Blood Pressure [ 110/66 Supine] - Orders/Labs/Meds Orders: Active Orders 24 hr Category Date Time Status EKG 12 Lead [EKG Documentation Completion] [RC] STAT Care 10/30/20 16:29 Active Orthostatic Vital Signs [RC] ASDIRECTED Care 10/30/20 16:12 Active Labs: Laboratory Tests 10/30/20 10/30/20 Range/Units 16:00 16:00 WBC 6.89 (4.0-11.0) K/uL RBC 4.64 (4.30-5.90) M/uL Hgb 14.6 (12.0-16.0) g/dL Hct 40.7 (36.0-46.0) % MCV 87.7 (80.0-98.0) fL MCH 31.5 (27.0-32.0) pg MCHC 35.9 (31.0-37.0) g/dL RDW Std Deviation 43.1 (28.0-62.0) fl RDW Coeff of Pema 13 (11.0-15.0) % Plt Count 321 (150-400) K/uL MPV 9.50 (7.40-12.00) fL Neut % (Auto) 75.4 (48.0-80.0) % Lymph % (Auto) 19.3 (16.0-40.0) % Story % (Auto) 4.6 (0.0-15.0) % Eos % (Auto) 0.4 (0.0-7.0) % Baso % (Auto) 0.3 (0.0-1.5) % Neut # (Auto) 5.2 (1.4-5.7) K/uL Lymph # (Auto) 1.3 (0.6-2.4) K/uL Story # (Auto) 0.3 (0.0-0.8) K/uL Eos # (Auto) 0.0 (0.0-0.7) K/uL Baso # (Auto) 0.0 (0.0-0.1) K/uL Nucleated RBC % 0.0 /100WBC Nucleated RBCs # 0 K/uL Sodium 138 (136-145) mmol/L Potassium 3.7 (3.5-5.1) mmol/L Chloride 105 (98-107) mmol/L Carbon Dioxide 22.4 (21.0-32.0) mmol/L BUN 12 (7.0-18.0) mg/dL Creatinine 0.7 (0.6-1.0) mg/dL Est Cr Clr Drug Dosing 107.93 mL/min Estimated GFR (MDRD) > 60.0 ml/min Glucose 117 H (74-106) mg/dL Calcium 8.8 (8.5-10.1) mg/dL Total Bilirubin 1.2 H (0.2-1.0) mg/dL AST 15 (15-37) IU/L ALT 18 (14-63) IU/L Alkaline Phosphatase 48 (46-116) U/L Total Protein 7.5 (6.4-8.2) g/dL Albumin 4.1 (3.4-5.0) g/dL Globulin 3.4 (2.6-4.0) g/dL Albumin/Globulin Ratio 1.2 (0.9-1.6) TSH, Ultra Sensitive 0.39 (0.36-3.74) uIU/mL Meds: Medications Discontinued Medications Generic Name Dose Route Start Last Admin Trade Name Freq PRN Reason Stop Dose Admin Sodium Chloride 1,000 mls @ 999 mls/hr 10/30/20 16:12 10/30/20 16:33 Normal Saline IV 10/30/20 17:12 999 mls/hr STAT ONE Administration Ketorolac Tromethamine 30 mg 10/30/20 16:13 10/30/20 16:33 Ketorolac 30 Mg/Ml Sdv IVPUSH 10/30/20 16:14 30 mg ONETIME ONE Administration Scopolamine 1.5 mg 10/30/20 16:12 10/30/20 16:33 Scopolamine 1.5 Mg Transdermal Patch TRDERM 10/30/20 16:13 1.5 mg NOW STA Administration Departure - Departure Time of Disposition: 17:41 Disposition: Home, Self-Care 01 Clinical Impression: Dizziness Abdominal pain Qualifiers: Abdominal location: lower abdomen, unspecified Qualified Code(s): R10.30 - Lower abdominal pain, unspecified - Discharge Information Prescriptions: Diclofenac Sodium [Voltaren] 50 mg PO BID PRN #30 tab.ec PRN Reason: Pain Instructions: Dizziness, [id number] Referrals: Rosemary Piña NP [Primary Care Provider] - Forms: ED Department Discharge Additional Instructions: The following information is given to patients seen in the emergency department who are being discharged to home. This information is to outline your options for follow-up care. We provide all patients seen in our emergency department with a follow-up referral. The need for follow-up, as well as the timing and circumstances, are variable depending upon the specifics of your emergency department visit. If you don't have a primary care physician on staff, we will provide you with a referral. We always advise you to contact your personal physician following an emergency department visit to inform them of the circumstance of the visit and for follow-up with them and/or the need for any referrals to a consulting specialist. The emergency department will also refer you to a specialist when appropriate. This referral assures that you have the opportunity for follow-up care with a specialist. All of these measure are taken in an effort to provide you with optimal care, which includes your follow-up. Under all circumstances we always encourage you to contact your private physician who remains a resource for coordinating your care. When calling for follow-up care, please make the office aware that this follow-up is from your recent emergency room visit. If for any reason you are refused follow-up, please contact the [facility] at and asked to speak to the emergency department charge nurse. [facility] [address] [place], [place] [id number] [place] [address] Thank you for choosing the [facility] emergency department in [place] for your medical needs today. It was a pleasure caring for you. Today you were seen in the emergency department for dizziness. 1. You were evaluated today on an emergent basis. Your lab work is normal. Please take it easy over the next few days as you are feeling unwell. Increase your fluids. Continue taking your medications you are prescribed this morning. 2. You can alternate Tylenol and ibuprofen as needed for pain and fever management. 3. We encourage you to follow up with your primary care provider and/or recommended specialist in the next few days for re-evaluation and further care/management. 4. If your symptoms should worsen, new symptoms develop or any of the signs and symptoms we discussed should arise please return to the emergency room or call 911 (if needed). Sepsis Event Note (ED) - Evaluation Sepsis Screening Result: Possible Sepsis Risk - Focused Exam Vital Signs: Vital Signs Temp Pulse Resp BP Pulse Ox 10/30/20 15:59 96.9 F 96 22 H 161/59 H 96 - My Orders Last 24 Hours: My Active Orders 10/30/20 16:12 Orthostatic Vital Signs [RC] ASDIRECTED 10/30/20 16:29 EKG 12 Lead [EKG Documentation Completion] [RC] STAT - Assessment/Plan Last 24 Hours: My Active Orders 10/30/20 16:12 Orthostatic Vital Signs [RC] ASDIRECTED 10/30/20 16:29 EKG 12 Lead [EKG Documentation Completion] [RC] STAT
[2020-10-30 16:41] LABS: BLOOD UREA NITROGEN,BUN 12 mg/dL (7.0-18.0); CARBON DIOXIDE,CO2 22.4 mmol/L (21.0-32.0); CHLORIDE,CL 105 mmol/L (98-107); GLUCOSE RANDOM 117 mg/dL (74-106); POTASSIUM,K 3.7 mmol/L (3.5-5.1); SODIUM,NA 138 mmol/L (136-145)
[2020-10-30 19:21] VITALS: BP 103/70; PULSE 74
== END 2020-10-30 17:48 | disposition home or self-care (01) ==
LOC: MW.ED 15:51
DX: R10.32 Left lower quadrant pain (principal); R42 Dizziness and giddiness; K21.9 Gastro-esophageal reflux disease without esophagitis; Z79.899 Other long term (current) drug therapy; Z88.5 Allergy status to narcotic agent; Z91.041 Radiographic dye allergy status; Z91.018 Allergy to other foods; Z88.8 Allergy status to other drugs, medicaments and biological substances
CPT/HCPCS: 80053; 84443; 85025; 93005; 96374; 99284; A9270; J1885; J7030

== ENCOUNTER 2020-11-07 16:50 | Emergency (ER) | payer OTHER ==
--- NOTE | 2020-11-07 16:59 | EDM.PDOC ---
ED HPI GENERAL MEDICAL PROBLEM - General Stated Complaint: TROUBLE BREATHING Time Seen by Provider: 11/07/20 17:02 Source of Information: Reports: Patient History Limitations: Reports: No Limitations - History of Present Illness INITIAL COMMENTS - FREE TEXT/NARRATIVE: HISTORY AND PHYSICAL: History of present illness: Patient is a 25-year-old female who presents to the emergency room with complaints of shortness of breath, chest pain, tremulous and carpopedal spasms to her hands. 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 She then started to hyperventilate, feel SOB, and then had midsternal chest pain. She states she has a long standing history of anxiety and had been using Xanax over the past 2 years. Her and Rosemary Piña CHUCKING MACHINE OPERATOR have decided to pastora her off. Patient states she doesn't believe symptoms are similar to her panic attacks in the past. Patient denies any fever, chills, headache, change in vision, syncope, back pain, hemoptysis or cough. No personal history of heart disease or DVT/PE. Denies any abdominal pain, nausea, vomiting, diarrhea, constipation or dysuria. Has not noted any blood in urine or stool. No concern for . Patient has been eating and drinking appropriately. Denies any alcohol or drug abuse. Review of systems: As per history of present illness and below otherwise all systems reviewed and negative. Past medical history: As per history of present illness and as reviewed below otherwise noncontributory. Surgical history: As per history of present illness and as reviewed below otherwise noncontributory. Social history: See social history for further information Family history: As per history of present illness and as reviewed below otherwise noncontributory. Physical exam: General: Well developed and well nourished. Alert and orientated x 3. Nontoxic in appearance and in no acute distress. Vital signs are stable and have been reviewed by me. Nursing notes were reviewed. HEENT: Atraumatic, normocephalic, pupils equal and reactive bilaterally, negative for conjunctival pallor or scleral icterus, mucous membranes moist, TMs normal bilaterally, throat clear, neck supple, nontender, trachea midline. No drooling or trismus noted. No meningeal signs. No hot potato voice noted. Lungs: Clear to auscultation bilaterally. No wheezes, rales, or rhonchi. Chest nontender. Normal work of breathing, no accessory muscles used. Heart: S1S2, regular rate and rhythm without overt murmur, gallops, or rubs. No JVD. No peripheral edema Abdomen: Soft, nondistended, nontender. Normoactive bowel sounds. Negative for masses or costovertebral tenderness. Skin: Intact, warm, dry. No lesions or rashes noted. Hematologic: No petechiae or purpra. Mucosa appropriate color and normal nail bed color and refill. Extremities: Atraumatic, moves all extremities per self without difficulty or deficits, negative for cords or calf pain. Neurovascular unremarkable. Neuro: Awake, alert, oriented. Cranial nerves II through XII unremarkable. Cerebellum unremarkable. Motor and sensory unremarkable throughout. Exam nonfocal. Psychiatric: Mood and affect are appropriate. Normal thought process. Answering questions appropriately. Notes: *This patient was seen and evaluated during the 2019 SARS-CoV-2 novel coronavirus pandemic period. Community viral transmission is ongoing at time of this encounter and the emergency department is operating under pandemic response procedures. Patient is a 25-year-old female who presents to the emergency room with complaints of shortness of breath and chest pain. She states symptoms started at 1230 and have only progressed. She states she feels like her arms are "cramping up" does appear that she has carpal pedal spasms to her hand although she is able to fully open and close her hands without difficulty. Patient does have Xanax although states she does not like to use it, reports that her and her PCP are trying to wean her off. She does appear anxious like she is having a panic attack, patient states this does not feel like a panic attack. She is agreeable to basic lab work and 1 dose of IV Ativan. Physical exam is otherwise unremarkable. 10/30/2020: Patient was seen twice in one day for dizziness, near syncope, abdominal pain and chest pain. She had basic labs, TSH, urine and EKG's that were within normal limits. Lab work is unremarkable with the exception that her potassium is low at 3.2, will give her a dose of K-Dur. EKG and CXR show no acute findings. She states she feels so much better. She will follow up with Guanaco Fitzpatrick NP. I have talked with the patient about today's findings, in addition to providing specific details for plan of care. Reassessment at the time of disposition demonstrates that the patient is in no acute distress. The patient is stable for discharge, counseling was provided and we discussed in great detail signs and symptoms that would prompt them to return to the Emergency Department. Medication, follow up and supportive care measures were reviewed and discussed. Voices understanding and is agreeable to plan of care. Denies any further questions or concerns at this time. Diagnostics: CBC, CMP, Lipase, UA, HCGU, DRGU, CXR Therapeutics: IV fluids, Ativan Prescription: None Impression: Panic Attack Chest pain, nonspecific Plan: 1. You were evaluated today on an emergent basis. Your lab work looked normal with the exception of your potassium is a little low (increase potassium rich foods). EKG and chest x-ray are normal. 2. You can alternate Tylenol and ibuprofen as needed for pain and fever management. 3. We encourage you to follow up with your primary care provider and/or recommended specialist in the next few days for re-evaluation and further care /management. 4. If your symptoms should worsen, new symptoms develop or any of the signs and symptoms we discussed should arise please return to the emergency room or call 911 (if needed). Definitive disposition and diagnosis as appropriate pending reevaluation and review of above. Left Arm Pain Score (Numeric/FACES): 7 - Related Data Allergies Allergy/AdvReac Type Severity Reaction Status Date / Time caffeine Allergy heart races Verified 11/07/20 17:14 hydrocodone Allergy Tachycardia Verified 11/07/20 17:14 methylprednisolone Allergy Cannot Verified 11/07/20 17:14 Remember prednisone Allergy Chest Pain Verified 11/07/20 17:14 contrast Allergy Hives Uncoded 10/30/20 15:58 Home Meds: Home Meds ALPRAZolam [Xanax] 0.5 mg PO TID PRN 10/30/20 [History] Diclofenac Sodium [Voltaren] 50 mg PO BID PRN #30 tab.ec 10/30/20 [Rx] Fluconazole [Diflucan] 100 mg PO ONETIME 1 Days #1 tab 10/30/20 [Rx] metroNIDAZOLE [Flagyl] 500 mg PO Q12H 7 Days #14 tab 10/30/20 [Rx] Past Medical History - Past Health History Medical/Surgical History: Denies Medical/Surgical History HEENT History: Reports: None Cardiovascular History: Reports: None Other Cardiovascular History: tachycardia episodes few times per wek lasting up to 1/2 hour related to anxiety or thyroid gland or both,chest pains Respiratory History: Reports: None Gastrointestinal History: Reports: GERD Other Gastrointestinal History: rt upper quad pain Genitourinary History: Reports: UTI, Recurrent Other Genitourinary History: frequent UTI in past- not recently GRAIN BUYER History: Reports: None Musculoskeletal History: Reports: None Neurological History: Reports: None Psychiatric History: Reports: Anxiety, Panic Attack Endocrine/Metabolic History: Reports: Hyperthyroidism Other Endocrine/Metabolic History: has Subclinical hyperthyroidism- no treatment Hematologic History: Reports: None Immunologic History: Reports: None Oncologic (Cancer) History: Reports: None Dermatologic History: Reports: Eczema Other Dermatologic History: has seasonal ecxema - Infectious Disease History Infectious Disease History: Reports: None - Past Surgical History Head Surgeries/Procedures: Reports: None HEENT Surgical History: Reports: Oral Surgery Other HEENT Surgeries/Procedures: tooth extraction Cardiovascular Surgical History: Reports: None Respiratory Surgical History: Reports: None GI Surgical History: Reports: Cholecystectomy, Colonoscopy, EGD Female Surgical History: Reports: None Endocrine Surgical History: Reports: None Neurological Surgical History: Reports: None Musculoskeletal Surgical History: Reports: None Oncologic Surgical History: Reports: None Dermatological Surgical History: Reports: None Social & Family History - Family History Family Medical History: No Pertinent Family History HEENT: Reports: None Cardiac: Reports: None - Caffeine Use Caffeine Use: Reports: None ED ROS GENERAL - Review of Systems Review Of Systems: Comprehensive ROS is negative, except as noted in HPI. ED EXAM, GENERAL - Physical Exam Exam: See Below (See dictation) Course - Vital Signs Last Recorded V/S: Last Vital Signs Temp 98.2 F 11/07/20 17:15 Pulse 115 H 11/07/20 17:15 Resp 19 11/07/20 17:15 BP 138/78 11/07/20 17:15 Pulse Ox 98 11/07/20 17:15 - Orders/Labs/Meds Orders: Active Orders 24 hr Category Date Time Status EKG Documentation Completion [RC] STAT Care 11/07/20 17:05 Active Orthostatic Vital Signs [RC] ASDIRECTED Care 11/07/20 17:04 Active Chest 1V Frontal [CR] Stat Exams 11/07/20 17:05 Taken CORONAVIRUS COVID-19 RAFFY [MOLEC] Stat Lab 11/07/20 19:20 Received Labs: Laboratory Tests 11/07/20 11/07/20 11/07/20 Range/Units 17:02 17:02 17:02 WBC 10.21 (4.0-11.0) K/uL RBC 4.74 (4.30-5.90) M/uL Hgb 14.7 (12.0-16.0) g/dL Hct 41.2 (36.0-46.0) % MCV 86.9 (80.0-98.0) fL MCH 31.0 (27.0-32.0) pg MCHC 35.7 (31.0-37.0) g/dL RDW Std Deviation 42.2 (28.0-62.0) fl RDW Coeff of Pema 13 (11.0-15.0) % Plt Count 366 (150-400) K/uL MPV 9.30 (7.40-12.00) fL Neut % (Auto) 76.2 (48.0-80.0) % Lymph % (Auto) 17.0 (16.0-40.0) % Atkinson % (Auto) 6.0 (0.0-15.0) % Eos % (Auto) 0.6 (0.0-7.0) % Baso % (Auto) 0.2 (0.0-1.5) % Neut # (Auto) 7.8 H (1.4-5.7) K/uL Lymph # (Auto) 1.7 (0.6-2.4) K/uL Atkinson # (Auto) 0.6 (0.0-0.8) K/uL Eos # (Auto) 0.1 (0.0-0.7) K/uL Baso # (Auto) 0.0 (0.0-0.1) K/uL Nucleated RBC % 0.0 /100WBC Nucleated RBCs # 0 K/uL Sodium 138 (136-145) mmol/L Potassium 3.3 L (3.5-5.1) mmol/L Chloride 100 (98-107) mmol/L Carbon Dioxide 23.7 (21.0-32.0) mmol/L BUN 9 (7.0-18.0) mg/dL Creatinine 0.8 (0.6-1.0) mg/dL Est Cr Clr Drug Dosing 94.44 mL/min Estimated GFR (MDRD) > 60.0 ml/min Glucose 105 (74-106) mg/dL Calcium 9.2 (8.5-10.1) mg/dL Magnesium 2.0 (1.8-2.4) mg/dL Total Bilirubin 1.1 H (0.2-1.0) mg/dL AST 16 (15-37) IU/L ALT 24 (14-63) IU/L Alkaline Phosphatase 46 (46-116) U/L Troponin I < 0.050 (0.000-0.056) ng/mL Total Protein 7.6 (6.4-8.2) g/dL Albumin 4.3 (3.4-5.0) g/dL Globulin 3.3 (2.6-4.0) g/dL Albumin/Globulin Ratio 1.3 (0.9-1.6) Urine Color Urine Appearance Urine pH (5.0-8.0) Ur Specific Elba (1.001-1.035) Urine Protein (NEGATIVE) mg/dL Urine Glucose (UA) (NEGATIVE) mg/dL Urine Ketones (NEGATIVE) mg/dL Urine Occult Blood (NEGATIVE) Urine Nitrite (NEGATIVE) Urine Bilirubin (NEGATIVE) Urine Urobilinogen (<2.0) EU/dL Ur Leukocyte Esterase (NEGATIVE) Urine HCG, Qual (NEGATIVE) Urine Opiates Screen (NEGATIVE) Ur Oxycodone Screen (NEGATIVE) Urine Methadone Screen (NEGATIVE) Ur Barbiturates Screen (NEGATIVE) Ur Phencyclidine Scrn (NEGATIVE) Ur Amphetamine Screen (NEGATIVE) U Methamphetamines Scrn (NEGATIVE) U Benzodiazepines Scrn (NEGATIVE) U Cocaine Metab Screen (NEGATIVE) U Marijuana (THC) Screen (NEGATIVE) Ethyl Alcohol < 3.0 mg/dL 11/07/20 11/07/20 11/07/20 Range/Units 19:12 19:12 19:12 WBC (4.0-11.0) K/uL RBC (4.30-5.90) M/uL Hgb (12.0-16.0) g/dL Hct (36.0-46.0) % MCV (80.0-98.0) fL MCH (27.0-32.0) pg MCHC (31.0-37.0) g/dL RDW Std Deviation (28.0-62.0) fl RDW Coeff of Pema (11.0-15.0) % Plt Count (150-400) K/uL MPV (7.40-12.00) fL Neut % (Auto) (48.0-80.0) % Lymph % (Auto) (16.0-40.0) % Atkinson % (Auto) (0.0-15.0) % Eos % (Auto) (0.0-7.0) % Baso % (Auto) (0.0-1.5) % Neut # (Auto) (1.4-5.7) K/uL Lymph # (Auto) (0.6-2.4) K/uL Atkinson # (Auto) (0.0-0.8) K/uL Eos # (Auto) (0.0-0.7) K/uL Baso # (Auto) (0.0-0.1) K/uL Nucleated RBC % /100WBC Nucleated RBCs # K/uL Sodium (136-145) mmol/L Potassium (3.5-5.1) mmol/L Chloride (98-107) mmol/L Carbon Dioxide (21.0-32.0) mmol/L BUN (7.0-18.0) mg/dL Creatinine (0.6-1.0) mg/dL Est Cr Clr Drug Dosing mL/min Estimated GFR (MDRD) ml/min Glucose (74-106) mg/dL Calcium (8.5-10.1) mg/dL Magnesium (1.8-2.4) mg/dL Total Bilirubin (0.2-1.0) mg/dL AST (15-37) IU/L ALT (14-63) IU/L Alkaline Phosphatase (46-116) U/L Troponin I (0.000-0.056) ng/mL Total Protein (6.4-8.2) g/dL Albumin (3.4-5.0) g/dL Globulin (2.6-4.0) g/dL Albumin/Globulin Ratio (0.9-1.6) Urine Color YELLOW Urine Appearance CLEAR Urine pH 6.5 (5.0-8.0) Ur Specific Elba <= 1.005 (1.001-1.035) Urine Protein NEGATIVE (NEGATIVE) mg/dL Urine Glucose (UA) NEGATIVE (NEGATIVE) mg/dL Urine Ketones NEGATIVE (NEGATIVE) mg/dL Urine Occult Blood NEGATIVE (NEGATIVE) Urine Nitrite NEGATIVE (NEGATIVE) Urine Bilirubin NEGATIVE (NEGATIVE) Urine Urobilinogen 0.2 (<2.0) EU/dL Ur Leukocyte Esterase NEGATIVE (NEGATIVE) Urine HCG, Qual NEGATIVE (NEGATIVE) Urine Opiates Screen NEGATIVE (NEGATIVE) Ur Oxycodone Screen NEGATIVE (NEGATIVE) Urine Methadone Screen NEGATIVE (NEGATIVE) Ur Barbiturates Screen NEGATIVE (NEGATIVE) Ur Phencyclidine Scrn NEGATIVE (NEGATIVE) Ur Amphetamine Screen NEGATIVE (NEGATIVE) U Methamphetamines Scrn NEGATIVE (NEGATIVE) U Benzodiazepines Scrn NEGATIVE (NEGATIVE) U Cocaine Metab Screen NEGATIVE (NEGATIVE) U Marijuana (THC) Screen NEGATIVE (NEGATIVE) Ethyl Alcohol mg/dL Meds: Medications Discontinued Medications Generic Name Dose Route Start Last Admin Trade Name Freq PRN Reason Stop Dose Admin Sodium Chloride 1,000 mls @ 999 mls/hr 11/07/20 17:00 11/07/20 17:10 Normal Saline IV 11/07/20 18:00 999 mls/hr STAT ONE Administration Lorazepam 1 mg 11/07/20 17:00 11/07/20 17:10 Lorazepam 2 Mg/Ml Sdv IVPUSH 11/07/20 17:01 1 mg ONETIME ONE Administration Potassium Chloride 40 meq 11/07/20 18:14 11/07/20 18:19 Potassium Chloride 20 Meq Tab.Er PO 11/07/20 18:15 40 meq ONETIME ONE Administration Departure - Departure Time of Disposition: 19:43 Disposition: Home, Self-Care 01 Clinical Impression: Nonspecific chest pain, Panic attack Instructions: Nonspecific Chest Pain, Adult, [id number] Referrals: Rosemary Piña NP [Primary Care Provider] - Additional Instructions: The following information is given to patients seen in the emergency department who are being discharged to home. This information is to outline your options for follow-up care. We provide all patients seen in our emergency department with a follow-up referral. The need for follow-up, as well as the timing and circumstances, are variable depending upon the specifics of your emergency department visit. If you don't have a primary care physician on staff, we will provide you with a referral. We always advise you to contact your personal physician following an emergency department visit to inform them of the circumstance of the visit and for follow-up with them and/or the need for any referrals to a consulting specialist. The emergency department will also refer you to a specialist when appropriate. This referral assures that you have the opportunity for follow-up care with a specialist. All of these measure are taken in an effort to provide you with optimal care, which includes your follow-up. Under all circumstances we always encourage you to contact your private physician who remains a resource for coordinating your care. When calling for follow-up care, please make the office aware that this follow-up is from your recent emergency room visit. If for any reason you are refused follow-up, please contact the [facility] at and asked to speak to the emergency department charge nurse. [facility] [address] [place] [id number] [address] Thank you for choosing the [facility] emergency department in [place] for your medical needs today. It was a pleasure caring for you. Today you were seen in the emergency department for chest pain. 1. You were evaluated today on an emergent basis. Your lab work looked normal with the exception of your potassium is a little low (increase potassium rich foods). EKG and chest x-ray are normal. 2. You can alternate Tylenol and ibuprofen as needed for pain and fever management. 3. We encourage you to follow up with your primary care provider and/or recommended specialist in the next few days for re-evaluation and further care/management. 4. If your symptoms should worsen, new symptoms develop or any of the signs and symptoms we discussed should arise please return to the emergency room or call 911 (if needed). Sepsis Event Note (ED) - Focused Exam Vital Signs: Vital Signs Temp Pulse Resp BP Pulse Ox 11/07/20 17:15 98.2 F 115 H 19 138/78 98 - My Orders Last 24 Hours: My Active Orders 11/07/20 17:04 Orthostatic Vital Signs [RC] ASDIRECTED 11/07/20 17:05 EKG Documentation Completion [RC] STAT Chest 1V Frontal [CR] Stat 11/07/20 19:20 CORONAVIRUS COVID-19 RAFFY [MOLEC] Stat - Assessment/Plan Last 24 Hours: My Active Orders 11/07/20 17:04 Orthostatic Vital Signs [RC] ASDIRECTED 11/07/20 17:05 EKG Documentation Completion [RC] STAT Chest 1V Frontal [CR] Stat 11/07/20 19:20 CORONAVIRUS COVID-19 RAFFY [MOLEC] Stat
[2020-11-07] MEDS ORDERED: Sodium Chloride 0.9% 1,000 ML IV ONE (17:00)
[2020-11-07] MEDS ORDERED: LORazepam 2 MG/ML SDV IVPUSH ONE (17:00)
--- NOTE | 2020-11-07 17:03 | PCM.EKG ---
#1 Interpretation EKG Date: 11/07/20 Time: 17:02 EKG Interpretation Comments: EKG: NSR, nonspecific ST/T changes, Rate - 97
[2020-11-07 17:20] VITALS: BP 138/78; PULSE 115
[2020-11-07 17:46] LABS: BLOOD UREA NITROGEN,BUN 9 mg/dL (7.0-18.0); CARBON DIOXIDE,CO2 23.7 mmol/L (21.0-32.0); CHLORIDE,CL 100 mmol/L (98-107); GLUCOSE RANDOM 105 mg/dL (74-106); POTASSIUM,K 3.3 mmol/L (3.5-5.1); SODIUM,NA 138 mmol/L (136-145)
[2020-11-07] MEDS ORDERED: Potassium Chloride 20 MEQ Tab.ER PO ONE (18:14)
--- NOTE | 2020-11-07 20:21 | CR ---
INDICATION: Shortness of breath. Chest pain. COMPARISON: Portable chest dated 07/28/2019 TECHNIQUE: Two view chest. FINDINGS: The lungs are clear. There is no evidence of pneumothorax. The heart, mediastinum and pulmonary vessels are of normal size. There is no evidence of pleural fluid. IMPRESSION: Negative chest. Dictated by Kaiden Holden MD @ 11/07/2020 8:19:[address] Kaiden Holden @ Nov 07 2020 8:19PM
== END 2020-11-07 20:08 | disposition home or self-care (01) ==
LOC: MW.ED 16:50
DX: F41.0 Panic disorder [episodic paroxysmal anxiety] (principal); Z91.041 Radiographic dye allergy status; Z88.5 Allergy status to narcotic agent; Z88.8 Allergy status to other drugs, medicaments and biological substances
CPT/HCPCS: 36415; 71045; 80053; 80305; 80307; 81003; 81025; 83735; 84484; 85025; 87635; 93005; 96374; 99285; A9270; J2060; J7030; U0002

== ENCOUNTER 2021-03-28 17:54 | Emergency (ER) | payer OTHER ==
[2021-03-28] MEDS ORDERED: Morphine 4 MG/ML VIAL IVPUSH ONE (18:26)
[2021-03-28] MEDS ORDERED: Sodium Chloride 0.9% 2.5 ML Syringe FLUSH PRN (18:26)
[2021-03-28] MEDS ORDERED: Ondansetron 4 MG/2 ML SDV IVPUSH ONE (18:26)
[2021-03-28] MEDS ORDERED: Sodium Chloride 0.9% 10 ML Syringe FLUSH PRN (18:26)
--- NOTE | 2021-03-28 18:40 | EDM.PDOC ---
<Reza Caseyophe - Last Filed: 03/28/21 18:36> ED HPI GENERAL MEDICAL PROBLEM - General Chief Complaint: Chest Pain Stated Complaint: BACK AND CHEST PAIN Time Seen by Provider: 03/28/21 18:16 - History of Present Illness INITIAL COMMENTS - FREE TEXT/NARRATIVE: 26-year-old female she has a history of chronic back pain a remote history of cholecystectomy and remote history of surgery for endometriosis who is presenting with chest and back pain. Patient has some degree of chronic back pain she notes that over the last week or so her back pain seems to be more diffuse than normal and more migratory than normal. 1 to 2 days ago she noted pain behind her left knee with some radiation into the left calf but no left leg redness or swelling. She is a non-smoker no recent plane flights or long car r ides and no exogenous estrogen. Patient has no cough or fevers or chills but approximately 30 minutes prior to arrival developed significant anterior chest pain that worsens with deep breaths and is associated with lightheadedness and a sensation of near syncope. No syncope no palpitations. Some pain in the epigastrium as well but no vomiting. Symptoms without alleviating factors they do worsen when she lays back and no other associated symptoms. Back Pain Score (Numeric/FACES): 8 Chest Pain Score (Numeric/FACES): 6 - Related Data Allergies Allergy/AdvReac Type Severity Reaction Status Date / Time caffeine Allergy heart races Verified 03/28/21 17:57 hydrocodone Allergy Tachycardia Verified 03/28/21 17:57 methylprednisolone Allergy Cannot Verified 03/28/21 17:57 Remember prednisone Allergy Chest Pain Verified 03/28/21 17:57 contrast Allergy Hives Uncoded 03/28/21 17:57 Home Meds: Home Meds Diclofenac Submicronized [Diclofenac] 35 mg PO TID PRN #20 capsule 03/28/21 [Rx] Orphenadrine [Norflex] 100 mg PO DAILY 03/28/21 [History] Past Medical History - Past Health History Medical/Surgical History: Denies Medical/Surgical History HEENT History: Reports: None Cardiovascular History: Reports: None Other Cardiovascular History: tachycardia episodes few times per wek lasting up to 1/2 hour related to anxiety or thyroid gland or both,chest pains Respiratory History: Reports: None Gastrointestinal History: Reports: GERD Other Gastrointestinal History: rt upper quad pain Genitourinary History: Reports: UTI, Recurrent Other Genitourinary History: frequent UTI in past- not recently [employer] History: Reports: None Musculoskeletal History: Reports: None Neurological History: Reports: None Psychiatric History: Reports: Anxiety, Panic Attack Endocrine/Metabolic History: Reports: Hyperthyroidism Other Endocrine/Metabolic History: has Subclinical hyperthyroidism- no treatment Hematologic History: Reports: None Immunologic History: Reports: None Oncologic (Cancer) History: Reports: None Dermatologic History: Reports: Eczema Other Dermatologic History: has seasonal ecxema - Infectious Disease History Infectious Disease History: Reports: None - Past Surgical History Head Surgeries/Procedures: Reports: None HEENT Surgical History: Reports: Oral Surgery Other HEENT Surgeries/Procedures: tooth extraction Cardiovascular Surgical History: Reports: None Respiratory Surgical History: Reports: None GI Surgical History: Reports: Cholecystectomy, Colonoscopy, EGD Female Surgical History: Reports: None Endocrine Surgical History: Reports: None Neurological Surgical History: Reports: None Musculoskeletal Surgical History: Reports: None Oncologic Surgical History: Reports: None Dermatological Surgical History: Reports: None Social & Family History - Family History Family Medical History: No Pertinent Family History HEENT: Reports: None Cardiac: Reports: None - Tobacco Use Tobacco Use Status *Q: Never Tobacco User - Caffeine Use Caffeine Use: Reports: Coffee - Recreational Drug Use Recreational Drug Use: No ED ROS GENERAL - Review of Systems Review Of Systems: See Below Free Text/Narrative/Comment: General: No fever. Skin: No rash. Eyes: No vision problems. ENT: No sore throat. Neck: No neck stiffness. Respiratory: Per HPI Cardiac: Per HPI Gastrointestinal: No nausea, vomiting or abdominal pain. Urinary: No dysuria. Musculoskeletal: No myalgias/arthralgias. Neurologic: No headache. ED EXAM, GENERAL - Physical Exam Exam: See Below Free Text/Narrative:: General Appearance: No acute distress, appears comfortable Skin: No rash HEENT: Normocephalic/atraumatic, sclera anicteric, mucous membranes moist Neck: Normal range of motion Chest and Lungs: Bilateral breath sounds, clear to auscultation, shallow respirations that appear to be related to pain Cardiovascular: Regular rate and rhythm Abdomen: Soft, non-tender Back: Normal Musculoskeletal: 2+ left DP pulse no palpable cord no left lower extremity swelling or erythema tenderness focused on the medial hamstring insertion Neurologic: Awake, alert, no obvious deficits, moving all extremities Psychiatric: Appropriate, cooperative #1 Interpretation EKG Date: 03/28/21 Time: 18:38 EKG Interpretation Comments: Normal sinus rhythm rate of 92 borderline right axis no acute ischemia unremarkable intervals Departure - Departure Disposition: Home, Self-Care 01 Clinical Impression: Chest wall pain, Chronic neck pain - Discharge Information Prescriptions: Diclofenac Submicronized [Diclofenac] 35 mg PO TID PRN #20 capsule PRN Reason: Pain (Moderate 4-6) Instructions: Chest Wall Pain, [id number], Chronic Pain, Adult Referrals: Rosemary Piña NP [Primary Care Provider] - Forms: ED Department Discharge Additional Instructions: Use the prescription medicine for pain as well as heat to the chest wall and neck. Exercise range of motion the neck. Prescription was sent to [facility] [place] pharmacy which will be open tomorrow. If short of breath or worsening you may return. Try to follow-up promptly at the beginning of the week since the end of next week is a holiday. [facility] - [facility] [address] [place] [address] [place] [address] The following information is given to patients seen in the emergency department who are being discharged to home. This information is to outline your options for follow-up care. We provide all patients seen in our emergency department with a follow-up referral. The need for follow-up, as well as the timing and circumstances, are variable depending upon the specifics of your emergency department visit. If you don't have a primary care physician on staff, we will provide you with a referral. We always advise you to contact your personal physician following an emergency department visit to inform them of the circumstance of the visit and for follow-up with them and/or the need for any referrals to a consulting specialist. The emergency department will also refer you to a specialist when appropriate. This referral assures that you have the opportunity for follow-up care with a specialist. All of these measure are taken in an effort to provide you with optimal care, which includes your follow-up. Under all circumstances we always encourage you to contact your private physician who remains a resource for coordinating your care. When calling for follow-up care, please make the office aware that this follow-up is from your recent emergency room visit. If for any reason you are refused follow-up, please contact the [facility] Emergency Department at and asked to speak to the emergency department charge nurse. Sepsis Event Note (ED) - Evaluation Sepsis Screening Result: No Definite Risk - Assessment/Plan Assessment:: 26-year-old female presenting with intermittent mild tachycardia pleuritic chest pain worsening chronic back pain and left leg pain. PE certainly is a consideration but patient is low risk for this D-dimer pending. Pneumonia is a consideration pneumothorax is a consideration but felt less likely. Aortic dissection considered but patient is without a history of hypertension and in her patient population this would be exceedingly unlikely. Esophageal reflux and GERD is a consideration as well. EKG is without acute ischemia. CBC, CMP, D-dimer, chest x-ray ordered as well as Zofran and morphine for pain. Pericarditis is possible as well but patient does not have any EKG changes that would suggest pericarditis. Results of testing pending at this time and signed out to Dr. Galindo at change of shift. <Jaswant Galindo - Last Filed: 03/28/21 20:41> Course - Vital Signs Last Recorded V/S: Last Vital Signs Temp 36.3 C 03/28/21 17:59 Pulse 91 03/28/21 17:59 Resp 17 03/28/21 17:59 BP 126/73 03/28/21 17:59 Pulse Ox 98 03/28/21 17:59 - Orders/Labs/Meds Orders: Active Orders 24 hr Category Date Time Status Sodium Chloride 0.9% [Saline Flush] Med 03/28/21 18:26 Active 10 ml FLUSH ASDIRECTED PRN Sodium Chloride 0.9% [Saline Flush] Med 03/28/21 18:26 Active 2.5 ml FLUSH ASDIRECTED PRN Saline Lock Insert [OM.PC] Stat Oth 03/28/21 18:26 Ordered Medication Orders Sodium Chloride (Sodium Chloride 0.9% 10 Ml Syringe) 10 ml FLUSH ASDIRECTED PRN PRN Reason: Keep Vein Open Last Admin: 03/28/21 18:52 Dose: 10 ml Documented by: DANIEL Sodium Chloride (Sodium Chloride 0.9% 2.5 Ml Syringe) 2.5 ml FLUSH ASDIRECTED PRN PRN Reason: Keep Vein Open Last Admin: 03/28/21 18:54 Dose: 2.5 ml Documented by: DANIEL Labs: Laboratory Tests 03/28/21 03/28/21 03/28/21 Range/Units 18:43 18:43 18:43 WBC 8.72 (4.0-11.0) K/uL RBC 4.66 (4.30-5.90) M/uL Hgb 14.6 (12.0-16.0) g/dL Hct 41.4 (36.0-46.0) % MCV 88.8 (80.0-98.0) fL MCH 31.3 (27.0-32.0) pg MCHC 35.3 (31.0-37.0) g/dL RDW Std Deviation 40.5 (28.0-62.0) fl RDW Coeff of Pema 13 (11.0-15.0) % Plt Count 333 (150-400) K/uL MPV 9.40 (7.40-12.00) fL Neut % (Auto) 73.7 (48.0-80.0) % Lymph % (Auto) 20.5 (16.0-40.0) % [place] % (Auto) 4.9 (0.0-15.0) % Eos % (Auto) 0.6 (0.0-7.0) % Baso % (Auto) 0.3 (0.0-1.5) % Neut # (Auto) 6.4 H (1.4-5.7) K/uL Lymph # (Auto) 1.8 (0.6-2.4) K/uL [place] # (Auto) 0.4 (0.0-0.8) K/uL Eos # (Auto) 0.1 (0.0-0.7) K/uL Baso # (Auto) 0.0 (0.0-0.1) K/uL Nucleated RBC % 0.0 /100WBC Nucleated RBCs # 0 K/uL D-Dimer, Quantitative 0.41 (0.0-0.50) mg/L FEU Sodium 140 (136-145) mmol/L Potassium 3.9 (3.5-5.1) mmol/L Chloride 105 (98-107) mmol/L Carbon Dioxide 26.5 (21.0-32.0) mmol/L BUN 18 (7.0-18.0) mg/dL Creatinine 0.7 (0.6-1.0) mg/dL Est Cr Clr Drug Dosing 107.01 mL/min Estimated GFR (MDRD) > 60.0 ml/min Glucose 92 (74-106) mg/dL Calcium 9.2 (8.5-10.1) mg/dL Troponin I < 0.050 (0.000-0.056) ng/mL Meds: Medications Generic Name Dose Route Start Last Admin Trade Name Freq PRN Reason Stop Dose Admin Sodium Chloride 10 ml 03/28/21 18:26 03/28/21 18:52 Sodium Chloride 0.9% 10 Ml Syringe FLUSH 10 ml ASDIRECTED PRN Administration Keep Vein Open Sodium Chloride 2.5 ml 03/28/21 18:26 03/28/21 18:54 Sodium Chloride 0.9% 2.5 Ml Syringe FLUSH 2.5 ml ASDIRECTED PRN Administration Keep Vein Open Discontinued Medications Generic Name Dose Route Start Last Admin Trade Name Alejandro PRN Reason Stop Dose Admin Ketorolac Tromethamine 30 mg 03/28/21 20:05 03/28/21 20:16 Ketorolac 30 Mg/Ml Sdv IVPUSH 03/28/21 20:06 30 mg STAT STA Administration Morphine Sulfate 4 mg 03/28/21 18:26 03/28/21 18:53 Morphine 4 Mg/Ml Vial IVPUSH 03/28/21 18:27 4 mg ONETIME ONE Administration Ondansetron HCl 4 mg 03/28/21 18:26 03/28/21 18:51 Ondansetron 4 Mg/2 Ml Sdv IVPUSH 03/28/21 18:27 4 mg ONETIME ONE Administration - Re-Assessments/Exams Free Text/Narrative Re-Assessment/Exam: 03/28/21 19:15 Patient resting comfortably. Awaiting CT of the chest. Plan is discharged with pleurisy if the tests are negative. Accept the patient in signout from my partner at the end of his shift. Free Text/Narrative Re-Assessment/Exam: 03/28/21 20:06 Patient has pleuritic type pain as well as chest wall pain. She cannot take steroids. Naproxen and ibuprofen are tolerated but not helping. Plan ketorolac IV and discharged with prescription NSAIDs. Follow-up promptly in the beginni ng of the week because the end of the week is a holiday. D-dimer is negative and so we did not risk contrast allergy reaction to try to get an emergent CT of her chest when we have a more likely explanation for pain in vital signs and oxygen saturation do not suggest pulmonary embolus. 03/28/21 20:41 improved Departure - Departure Time of Disposition: 20:35 Condition: Good Sepsis Event Note (ED) - Focused Exam Vital Signs: Vital Signs Temp Pulse Resp BP Pulse Ox 03/28/21 17:59 36.3 C 91 17 126/73 98
--- NOTE | 2021-03-28 19:16 | CR ---
INDICATION: Chest pain. TECHNIQUE: AP upright portable chest. COMPARISON: November 08, 2019. FINDINGS: Clear lungs. Normal heart size and pulmonary vascularity. Normal included skeleton. Surgical clips right upper quadrant. IMPRESSION: Negative chest. No change. Dictated by Jimmy Schwartz MD @ 03/28/2021 7:15:49 PM (Electronically Signed)
[2021-03-28 19:18] LABS: BLOOD UREA NITROGEN,BUN 18 mg/dL (7.0-18.0); CARBON DIOXIDE,CO2 26.5 mmol/L (21.0-32.0); CHLORIDE,CL 105 mmol/L (98-107); GLUCOSE RANDOM 92 mg/dL (74-106); POTASSIUM,K 3.9 mmol/L (3.5-5.1); SODIUM,NA 140 mmol/L (136-145)
[2021-03-28] MEDS ORDERED: Ketorolac 30 MG/ML SDV IVPUSH STA (20:05)
[2021-03-28 20:48] VITALS: BP 117/63; PULSE 98
== END 2021-03-28 20:49 | disposition home or self-care (01) ==
LOC: MW.ED 17:54
DX: R07.89 Other chest pain (principal); G89.29 Other chronic pain; M54.2 Cervicalgia; Z88.5 Allergy status to narcotic agent; Z88.8 Allergy status to other drugs, medicaments and biological substances; Z91.041 Radiographic dye allergy status; Z90.49 Acquired absence of other specified parts of digestive tract; Z98.890 Other specified postprocedural states
CPT/HCPCS: 36415; 71045; 80048; 84484; 85025; 85379; 93005; 96374; 96375; 99285; J1885; J2270; J2405